=== PATIENT | male | born 1950 | race Caucasian/White ===

== ENCOUNTER 2017-09-12 08:33 | Inpatient (IN) | payer MEDICARE, BC ==
[2017-09-12] MEDS ORDERED: SODIUM CHLORIDE 0.9% 500 ML IV STA (08:38)
[2017-09-12] MEDS ORDERED: SODIUM CHLORIDE 0.9% 1,000 ML IV STA (08:38)
[2017-09-12] MEDS ORDERED: RX INFO: IV CONTRAST WAS GIVEN 1 EACH MISC MISCELLANE PRN (08:38)
--- NOTE | 2017-09-12 08:50 | ED ---
General Adult HPI - General Chief complaint: Shortness of Breath Stated complaint: Congestion Time Seen by Provider: 09/12/17 08:38 Source: patient, RN notes reviewed, old records reviewed Mode of arrival: wheelchair Limitations: no limitations - History of Present Illness Initial comments: This is a 67-year-old male the ER for evaluation of shortness of breath cough and congestion. Patient has remote history of smoking. Patient's been treated on an outpatient basis for bronchitis as of recently as well as flu. Patient's symptoms have progressed, he can't take a deep breath, severe left rib pain. Patient does again admit to increased cough, patient was sent in the ER by family doctor to rule out PE. Patient does admit to chest pain - Related Data Home Medications Medication Instructions Recorded Confirmed amLODIPine/VALSARTAN [Exforge 1 tab PO QAM 05/01/14 09/12/17 5-160 mg Tablet] Ibuprofen [Motrin] 800 mg PO Q6H PRN 09/12/17 09/12/17 Oseltamivir [Tamiflu] 75 mg PO Q12HR 09/12/17 09/12/17 predniSONE See Taper PO DAILY 09/12/17 09/12/17 Allergies Allergy/AdvReac Type Severity Reaction Status Date / Time codeine Allergy Nausea & Verified 09/12/17 08:37 Vomiting penicillin V Allergy Nausea & Verified 09/12/17 08:37 Vomiting Review of Systems ROS Statement: Those systems with pertinent positive or pertinent negative responses have been documented in the HPI. ROS Other: All systems not noted in ROS Statement are negative. Past Medical History Past Medical History: Eye Disorder, GERD/Reflux, Skin Disorder, Sleep Apnea/CPAP /BIPAP Additional Past Medical History / Comment(s): arthritis, DRYNESS AND CRACKING TO SKIN ON EMILY HANDS, EARLY GLAUCOMA History of Any Multi-Drug Resistant Organisms: None Reported Past Surgical History: Bladder Surgery, Joint Replacement, Orthopedic Surgery Additional Past Surgical History / Comment(s): elbow, hernia, spot removed from bladder, RT KNEE REPLACEMENT Past Anesthesia/Blood Transfusion Reactions: No Reported Reaction Past Psychological History: No Psychological Hx Reported Smoking Status: Former smoker Past Alcohol Use History: Rare Past Drug Use History: None Reported General Exam Limitations: no limitations General appearance: alert, in no apparent distress, anxious, obese Head exam: Present: atraumatic, normocephalic, normal inspection Eye exam: Present: normal appearance, PERRL, EOMI. Absent: scleral icterus, conjunctival injection, periorbital swelling ENT exam: Present: normal exam, mucous membranes moist Neck exam: Present: normal inspection. Absent: tenderness, meningismus, lymphadenopathy Respiratory exam: Present: normal lung sounds bilaterally, wheezes. Absent: respiratory distress, rales, rhonchi, stridor Cardiovascular Exam: Present: regular rate, normal rhythm, normal heart sounds. Absent: systolic murmur, diastolic murmur, rubs, gallop, clicks GI/Abdominal exam: Present: soft, normal bowel sounds. Absent: distended, tenderness, guarding, rebound, rigid Extremities exam: Present: normal inspection, full ROM, normal capillary refill. Absent: tenderness, pedal edema, joint swelling, calf tenderness Back exam: Present: normal inspection Neurological exam: Present: alert, oriented X3, CN II-XII intact Psychiatric exam: Present: normal affect, normal mood Skin exam: Present: warm, dry, intact, normal color. Absent: rash Course Vital Signs 09/12/17 09/12/17 09/12/17 08:33 09:12 10:50 Temperature 98.3 F Pulse Rate 85 70 78 Respiratory 24 16 Rate Blood Pressure 141/76 166/77 O2 Sat by Pulse 97 97 Oximetry 09/12/17 09/12/17 11:06 11:16 Temperature Pulse Rate 82 83 Respiratory 16 Rate Blood Pressure 151/72 O2 Sat by Pulse 98 Oximetry - Reevaluation(s) Reevaluation #1: 09/12/17 11:53 Patient does feel better with pain control, breathing treatments EKG Findings - EKG Comments: EKG Findings:: EKG shows normal sinus rhythm rate of 78, AR 162, QRS 80, QTC 424 Medical Decision Making - Medical Decision Making 67 male the ER for evaluation of shortness of breath with increased cough and congestion, patient does have left lower lobe pneumonia, patient will be admitted for breathing treatments and pain control, IV antibiotics - Lab Data Result diagrams: 09/12/17 09:10 09/12/17 09:10 Lab Results 09/12/17 09/12/17 09/12/17 Range/Units 09:10 09:10 09:10 WBC 6.9 (3.8-10.6) k/uL RBC 4.55 (4.30-5.90) m/uL Hgb 12.5 L (13.0-17.5) gm/dL Hct 38.5 L (39.0-53.0) % MCV 84.5 (80.0-100.0) fL MCH 27.6 (25.0-35.0) pg MCHC 32.6 (31.0-37.0) g/dL RDW 15.7 H (11.5-15.5) % Plt Count 207 (150-450) k/uL Neutrophils % 75 % Lymphocytes % 15 % Monocytes % 7 % Eosinophils % 1 % Basophils % 0 % Neutrophils # 5.2 (1.3-7.7) k/uL Lymphocytes # 1.1 (1.0-4.8) k/uL Monocytes # 0.5 (0-1.0) k/uL Eosinophils # 0.0 (0-0.7) k/uL Basophils # 0.0 (0-0.2) k/uL PT (9.0-12.0) sec INR (<1.2) APTT (22.0-30.0) sec D-Dimer (<0.60) mg/L FEU Sodium 142 (137-145) mmol/L Potassium 4.4 (3.5-5.1) mmol/L Chloride 101 (98-107) mmol/L Carbon Dioxide 30 (22-30) mmol/L Anion Gap 11 mmol/L BUN 16 (9-20) mg/dL Creatinine 0.90 (0.66-1.25) mg/dL Est GFR (MDRD) Af Amer >60 (>60 ml/min/1.73 sqM) Est GFR (MDRD) Non-Af >60 (>60 ml/min/1.73 sqM) Glucose 105 H (74-99) mg/dL Calcium 9.2 (8.4-10.2) mg/dL Magnesium 1.8 (1.6-2.3) mg/dL Total Bilirubin 0.4 (0.2-1.3) mg/dL AST 65 H (17-59) U/L ALT 70 (21-72) U/L Alkaline Phosphatase 90 (38-126) U/L Total Creatine Kinase 627 H (55-170) U/L CK-MB (CK-2) 3.1 H* (0.0-2.4) ng/mL CK-MB (CK-2) Rel Index 0.5 Troponin I <0.012 (0.000-0.034) ng/mL Total Protein 7.0 (6.3-8.2) g/dL Albumin 4.0 (3.5-5.0) g/dL 09/12/17 Range/Units 09:10 WBC (3.8-10.6) k/uL RBC (4.30-5.90) m/uL Hgb (13.0-17.5) gm/dL Hct (39.0-53.0) % MCV (80.0-100.0) fL MCH (25.0-35.0) pg MCHC (31.0-37.0) g/dL RDW (11.5-15.5) % Plt Count (150-450) k/uL Neutrophils % % Lymphocytes % % Monocytes % % Eosinophils % % Basophils % % Neutrophils # (1.3-7.7) k/uL Lymphocytes # (1.0-4.8) k/uL Monocytes # (0-1.0) k/uL Eosinophils # (0-0.7) k/uL Basophils # (0-0.2) k/uL PT 9.8 (9.0-12.0) sec INR 1.0 (<1.2) APTT 23.4 (22.0-30.0) sec D-Dimer 0.85 H (<0.60) mg/L FEU Sodium (137-145) mmol/L Potassium (3.5-5.1) mmol/L Chloride (98-107) mmol/L Carbon Dioxide (22-30) mmol/L Anion Gap mmol/L BUN (9-20) mg/dL Creatinine (0.66-1.25) mg/dL Est GFR (MDRD) Af Amer (>60 ml/min/1.73 sqM) Est GFR (MDRD) Non-Af (>60 ml/min/1.73 sqM) Glucose (74-99) mg/dL Calcium (8.4-10.2) mg/dL Magnesium (1.6-2.3) mg/dL Total Bilirubin (0.2-1.3) mg/dL AST (17-59) U/L ALT (21-72) U/L Alkaline Phosphatase (38-126) U/L Total Creatine Kinase (55-170) U/L CK-MB (CK-2) (0.0-2.4) ng/mL CK-MB (CK-2) Rel Index Troponin I (0.000-0.034) ng/mL Total Protein (6.3-8.2) g/dL Albumin (3.5-5.0) g/dL - Radiology Data Radiology results: report reviewed (CTA chest is positive for left lower lobe pneumonia), image reviewed Disposition Clinical Impression: Community acquired pneumonia, Acute exacerbation of chronic obstructive airways disease, Failure of outpatient treatment Disposition: ADMITTED IP TO THIS HOSP Condition: Fair
[2017-09-12] MEDS ORDERED: DIAZEPAM 5 MG/ML 2 ML INJ IVP STA (09:19)
[2017-09-12] MEDS ORDERED: MORPHINE SULFATE 4 MG/ML SYRINGE IVP STA (09:19)
[2017-09-12 09:25] LABS: Basophils % (A) 0 %; Eosinophils % (A) 1 %; HCT 38.5 % (39.0-53.0); HGB 12.5 gm/dL (13.0-17.5); Lymphocytes # (A) 1.1 k/uL (1.0-4.8); Lymphocytes % (A) 15 %; MCH 27.6 pg (25.0-35.0); MCHC 32.6 g/dL (31.0-37.0); MCV 84.5 fL (80.0-100.0); Mean Platelet Volume 6.4; Monocytes # (A) 0.5 k/uL (0-1.0); Monocytes % (A) 7 %; Neutrophils # (A) 5.2 k/uL (1.3-7.7); Neutrophils % (A) 75 %; Platelet Count 207 k/uL (150-450); RBC 4.55 m/uL (4.30-5.90); RDW 15.7 % (11.5-15.5); WBC 6.9 k/uL (3.8-10.6)
[2017-09-12 09:29] LABS: D-Dimer 0.85 mg/L FEU (<0.60)
[2017-09-12 09:33] LABS: Partial Thromboplastin Time 23.4 sec (22.0-30.0); Prothrombin Time 9.8 sec (9.0-12.0)
[2017-09-12 09:41] LABS: ALT 70 U/L (21-72); AST 65 U/L (17-59); Alkaline Phosphatase 90 U/L (38-126); Anion Gap 11 mmol/L; Blood Urea Nitrogen 16 mg/dL (9-20); Calcium 9.2 mg/dL (8.4-10.2); Carbon Dioxide 30 mmol/L (22-30); Chloride 101 mmol/L (98-107); Glucose 105 mg/dL (74-99); Magnesium 1.8 mg/dL (1.6-2.3); Potassium 4.4 mmol/L (3.5-5.1); Sodium 142 mmol/L (137-145); Total Bilirubin 0.4 mg/dL (0.2-1.3)
[2017-09-12 09:51] LABS: Creatine Kinase 627 U/L (55-170)
[2017-09-12 10:03] LABS: Troponin I <0.012 ng/mL (0.000-0.034)
[2017-09-12 10:06] LABS: Creatine Kinase MB 3.1 ng/mL (0.0-2.4)
--- NOTE | 2017-09-12 10:29 | CT ---
EXAMINATION TYPE: CT angio chest DATE OF EXAM: 09/12/2017 COMPARISON: NONE HISTORY: SOB, cough CT DLP: 581 mGycm CONTRAST: CT chest with contrast and 3D reconstruction with MIP imaging is performed with IV Contrast, patient injected with 100 mL of Omnipaque 350. Contrast-enhanced CT of the chest was performed through the course of the pulmonary arteries with shara g and mediastinal window settings submitted. 3D reconstruction with MIP imaging was also performed. PULMONARY ARTERIES: Examination is limited by contrast opacification of the pulmonary arteries. No o bvious or sizable filling defect is seen within the main or segmental branches of the pulmonary arter ies. LUNGS: Left-sided pleural effusion with AP dimension of 2.5 cm and associated infiltrate or atelectas is left lower lobe. The remainder of the lungs are clear. MEDIASTINUM: Thoracic aorta is of normal caliber,however, evaluation is limited given timing of the contrast bolus. If there is concern for thoracic aortic pathology consider AVRIL. Correlate clinicall y . The heart is mildly enlarged. No evidence for mediastinal mass. No mediastinal lymph nodes grea ter than 1cm. HILAR STRUCTURES: No evidence for mass. No hilar lymph nodes greater than 1 cm. UPPER ABDOMEN: No significant abnormality is seen. Small sliding-type hiatal hernia. IMPRESSION: 1. Examination is limited by contrast opacification of the pulmonary arteries. No obvious or sizable filling defect is seen within the main or segmental branches of the pulmonary arteries. 2. Left lower lobe pleural effusion with atelectasis and/or infiltrate.
[2017-09-12] MEDS ORDERED: IPRATROPIUM-ALBUTEROL 3 ML NEB INHALATION STA (10:38)
[2017-09-12] MEDS ORDERED: PNEUMONIA PROTOCOL UTILIZED 1 EACH MISC PO PRN (10:44)
[2017-09-12] MEDS ORDERED: LEVOFLOXACIN 750MG-D5W PMX 750 MG in DEXTROSE/WATER 1 150ML.BAG IVPB STA (10:44)
[2017-09-12] MEDS ORDERED: HYDROmorphone 0.5 MG/0.5 ML SYRINGE IVP PRN (10:49)
[2017-09-12] MEDS ORDERED: HYDROmorphone 2 MG/ML 1 ML SYRINGE IVP STA (10:49)
[2017-09-12] MEDS ORDERED: methylPREDNISolone SOD SUCCI 125 MG/2 ML VIAL IV STA (10:49)
[2017-09-12] MEDS: SODIUM CHLORIDE 0.9% 1,000 ML IV SCH ×2 (11:11→21:31)
--- NOTE | 2017-09-12 11:57 | P.HPIM ---
History of Present Illness H&P Date: 09/12/17 Chief Complaint: Shortness of breath and cough The patient is a 67-year-old morbidly obese male with a past focal history of essential hypertension and psoriasis presents to the ER after being urged to come here by his primary care physician Dr. Murphy. Apparently the patient has had a week of intermittently productive cough and is been increasingly short of breath, with noted dyspnea on exertion. The patient has reported intermittent fevers chills and night sweats, with increasing fatigue. She was seen in his PCPs office approximately a week ago and given oral steroids and recently followed up with him yesterday and was prescribed Tamiflu and is taken only a single dose and then followed up today with no improvement of his symptoms with worsening left-sided pleuritic chest discomfort, the patient denies any nausea vomiting or abdominal pain. In the ER the patient had a CT angios chest that showed left lower lobe effusion with atelectasis/infiltrateand was negative for PE Past Medical History Past Medical History: Eye Disorder, GERD/Reflux, Skin Disorder, Sleep Apnea/CPAP /BIPAP Additional Past Medical History / Comment(s): arthritis, DRYNESS AND CRACKING TO SKIN ON EMILY HANDS, EARLY GLAUCOMA History of Any Multi-Drug Resistant Organisms: None Reported Past Surgical History: Bladder Surgery, Joint Replacement, Orthopedic Surgery Additional Past Surgical History / Comment(s): elbow, hernia, spot removed from bladder, RT KNEE REPLACEMENT Past Anesthesia/Blood Transfusion Reactions: No Reported Reaction Past Psychological History: No Psychological Hx Reported Smoking Status: Former smoker Past Alcohol Use History: Rare Past Drug Use History: None Reported - Past Family History Mother Family Medical History: Cancer Additional Family Medical History / Comment(s): Mother is from lung cancer. She was a smoker. Father Family Medical History: Cancer Additional Family Medical History / Comment(s): Father is from lung cancer. He was a smoker. Medications and Allergies Home Medications Medication Instructions Recorded Confirmed Type amLODIPine/VALSARTAN [Exforge 1 tab PO QAM 05/01/14 09/12/17 History 5-160 mg Tablet] Ibuprofen [Motrin] 800 mg PO Q6H PRN 09/12/17 09/12/17 History Oseltamivir [Tamiflu] 75 mg PO Q12HR 09/12/17 09/12/17 History predniSONE See Taper PO DAILY 09/12/17 09/12/17 History Allergies Allergy/AdvReac Type Severity Reaction Status Date / Time codeine Allergy Nausea & Verified 09/12/17 08:37 Vomiting penicillin V Allergy Nausea & Verified 09/12/17 08:37 Vomiting Physical Exam Vitals: Vital Signs Temp Pulse Resp BP Pulse Ox 09/12/17 11:16 83 16 151/72 98 09/12/17 11:06 82 09/12/17 10:50 78 09/12/17 09:12 70 16 166/77 97 09/12/17 08:33 98.3 F 85 24 141/76 97 Intake and Output 09/11/17 09/12/17 09/12/17 22:59 06:59 14:59 Other: Weight 154.221 kg Patient Weight 09/13/17 06:59 Weight 154.221 kg Constitutional: No acute distress, conversant, pleasant Eyes: Anicteric sclerae, moist conjunctiva, no lid-lag, PERRLA ENMT: NC/AT,Oropharynx clear, no erythema, exudates Neck:Supple, FROM, no masses, or JVD, No carotid bruits; No thyromegaly Lungs: Inspiratory to expiratory wheezes, Normal respiratory effort, no accessory muscle use Cardiovascular: Heart regular in rate and rhythm, No murmurs, gallops, or rubs no peripheral edema Abdominal: Soft Nontender, nom distended, no guarding, no rebound or rigidity, Normoactive bowel sounds No hepatomegaly, No splenomegaly, No palpable mass No abdominal wall hernia noted Skin: Normal temperature, tone, texture, turgor, No induration No subcutaneous nodules, No rash, lesions, No ulcers Extremities:No digital cyanosis No clubbing, Pedal pulses intact and symmetrical Radial pulses intact and symmetrical Normal gait and station, No calf tenderness, +2 b/l pitting edema Psychiatric: Alert and oriented to person, place and time, Appropriate affect Intact judgement Neuro: Muscles Strength 5/5 in all 4 extremities, Sensation to light touch grossly present throughout, Cranial nerves II-XII grossly intact. No focal sensory deficits Results CBC & Chem 7: 09/12/17 09:10 09/12/17 09:10 Labs: Abnormal Lab Results - Last 24 Hours (Table) 09/12/17 09/12/17 09/12/17 Range/Units 09:10 09:10 09:10 Hgb 12.5 L (13.0-17.5) gm/dL Hct 38.5 L (39.0-53.0) % RDW 15.7 H (11.5-15.5) % D-Dimer (<0.60) mg/L FEU Glucose 105 H (74-99) mg/dL AST 65 H (17-59) U/L Total Creatine Kinase 627 H (55-170) U/L CK-MB (CK-2) 3.1 H* (0.0-2.4) ng/mL 09/12/17 Range/Units 09:10 Hgb (13.0-17.5) gm/dL Hct (39.0-53.0) % RDW (11.5-15.5) % D-Dimer 0.85 H (<0.60) mg/L FEU Glucose (74-99) mg/dL AST (17-59) U/L Total Creatine Kinase (55-170) U/L CK-MB (CK-2) (0.0-2.4) ng/mL Assessment and Plan (1) Community acquired pneumonia Current Visit: Yes Status: Acute Code(s): J18.9 - PNEUMONIA, UNSPECIFIED ORGANISM SNOMED Code(s): 020970106 (2) Wheezing Current Visit: Yes Status: Acute Code(s): R06.2 - WHEEZING SNOMED Code(s) : 14702036 (3) Essential hypertension Current Visit: Yes Status: Acute Code(s): I10 - ESSENTIAL (PRIMARY) HYPERTENSION SNOMED Code(s): 12056858 (4) REKHA (obstructive sleep apnea) Current Visit: Yes Status: Acute Code(s): G47.33 - OBSTRUCTIVE SLEEP APNEA ( ADULT) (PEDIATRIC) SNOMED Code(s): 55143852 (5) Elevated CK Current Visit: Yes Status: Acute Code(s): R74.8 - ABNORMAL LEVELS OF OTHER SERUM ENZYMES SNOMED Code(s): 934351557 Plan: Patient is admitted for suspected community-acquired pneumonia anticipated greater than 2 midnight stay. We'll check influenza and initiated coverage with Levaquin and supportive treatment with scheduled and when necessary bronchodilator breathing treatments along with steroids as a patient does have some wheezing. We'll check a BNP and if elevated an echocardiogram. Resume his home antihypertensive regimen, continue supportive treatment with oxygen when necessary. Initiate Protonix and Lovenox for GI and DVT prophylaxis respectively
[2017-09-12] MEDS ORDERED: oxyCODONE-APAP 5-325MG 1 EACH TAB PO PRN (12:01)
[2017-09-12] MEDS: PANTOPRAZOLE 40 MG TABLET PO SCH (14:40)
[2017-09-12] MEDS: guaiFENesin 600 MG TABLET.ER PO SCH ×2 (14:41→22:32)
[2017-09-12] MEDS ORDERED: hydrALAZINE HCL 20 MG/ML 1 ML VIAL IVP STA (15:05)
[2017-09-12] MEDS ORDERED: ONDANSETRON 4 MG/2 ML VIAL IVP STA (15:06)
[2017-09-12] MEDS: IPRATROPIUM-ALBUTEROL 3 ML NEB INHALATION SCH ×3 (16:03→19:50)
[2017-09-12] MEDS: methylPREDNISolone SOD SUCCI 125 MG/2 ML VIAL IV SCH (18:11)
[2017-09-12] MEDS ORDERED: ONDANSETRON 4 MG/2 ML VIAL IVP PRN (23:09)
[2017-09-13] MEDS: IBUPROFEN 800 MG TAB PO PRN ×2 (00:02→21:08)
[2017-09-13] MEDS: methylPREDNISolone SOD SUCCI 125 MG/2 ML VIAL IV SCH ×2 (00:02→06:48)
[2017-09-13] MEDS: SODIUM CHLORIDE 0.9% 1,000 ML IV SCH ×2 (06:48→15:52)
[2017-09-13] MEDS ORDERED: AMLODIPINE PO SCH (09:00)
[2017-09-13] MEDS ORDERED: VALSARTAN PO SCH (09:00)
[2017-09-13 09:09] LABS: Basophils % (A) 0 %; Eosinophils % (A) 0 %; HCT 37.5 % (39.0-53.0); HGB 11.7 gm/dL (13.0-17.5); Hypochromasia Slight; Lymphocytes # (A) 0.7 k/uL (1.0-4.8); Lymphocytes % (A) 13 %; MCH 26.9 pg (25.0-35.0); MCHC 31.3 g/dL (31.0-37.0); MCV 86.1 fL (80.0-100.0); Mean Platelet Volume 6.7; Monocytes # (A) 0.2 k/uL (0-1.0); Monocytes % (A) 4 %; Neutrophils # (A) 4.4 k/uL (1.3-7.7); Neutrophils % (A) 82 %; Platelet Count 224 k/uL (150-450); RBC 4.35 m/uL (4.30-5.90); RDW 15.5 % (11.5-15.5); WBC 5.4 k/uL (3.8-10.6)
[2017-09-13 09:25] LABS: ALT 70 U/L (21-72); AST 67 U/L (17-59); Albumin 3.7 g/dL (3.5-5.0); Alkaline Phosphatase 95 U/L (38-126); Anion Gap 13 mmol/L; Blood Urea Nitrogen 17 mg/dL (9-20); Calcium 9.2 mg/dL (8.4-10.2); Carbon Dioxide 27 mmol/L (22-30); Chloride 100 mmol/L (98-107); Glucose 162 mg/dL (74-99); Potassium 4.5 mmol/L (3.5-5.1); Sodium 140 mmol/L (137-145); Total Bilirubin 0.4 mg/dL (0.2-1.3); Total Protein 6.4 g/dL (6.3-8.2)
[2017-09-13] MEDS: amLODIPine 5 MG TAB PO SCH (09:47)
[2017-09-13] MEDS: PANTOPRAZOLE 40 MG TABLET PO SCH (09:47)
[2017-09-13] MEDS: guaiFENesin 600 MG TABLET.ER PO SCH ×2 (09:47→21:01)
[2017-09-13] MEDS: ENOXAPARIN 40 MG/0.4 ML SYRINGE SQ SCH (09:47)
[2017-09-13] MEDS: VALSARTAN 160 MG TAB PO SCH (09:48)
--- NOTE | 2017-09-13 09:49 | XR ---
EXAMINATION TYPE: XR chest 2V DATE OF EXAM: 09/13/2017 COMPARISON: CT chest 09/12/2017 HISTORY: Pneumonia TECHNIQUE: Frontal and lateral views of the chest are obtained. FINDINGS: There is blunting the posterior and left costophrenic angle. No evident pneumothorax. Victorina ent is rotated. Heart is enlarged. Pulmonary artery appears prominently. IMPRESSION: Left lower lobe atelectasis versus pneumonia and associated effusion. Cardiomegaly. Kenroy elate for possible pulmonary artery hypertension.
[2017-09-13] MEDS ORDERED: LEVOFLOXACIN 750MG-D5W PMX 750 MG in DEXTROSE/WATER 1 150ML.BAG IVPB SCH (11:00)
--- NOTE | 2017-09-13 11:48 | P.PN ---
Subjective Progress Note Date: 09/13/17 Principal diagnosis: shortness of breath Patient is a 67 yo M with a history of REKHA, GERD, and HTN who presented to the emergency department at the direction of his primary care physician Dr. Murphy. He had been having shortness of breath for approximately one week and had been started on an antibiotic he was also given Tamiflu at his physician's office and took one dose. On presentation to the ER he complained of pleuritic chest pain. He underwent an extensive evaluation. His initial vital signs were within normal limits. Initial laboratory analysis showed slightly elevated CK of 627 elevated d-dimer. He underwent CTA of the chest which did not show any pulmonary emboli but did show a left-sided pleural effusion with adjacent atelectasis/infiltrate. He was started on IV fluids and given a dose of Levaquin. Arrangements were made for admission for failed outpatient treatment of community-acquired pneumonia. He also underwent influenza swab which came back positive for influenza type B. However he was not started on Tamiflu as if his symptoms began in 9 days ago. Patient seen and examined at bedside. He states that his shortness of breath is improving. His chest pain and cough are improved but still present when he takes a deep breath. He is no longer having any nausea. He is still feeling somewhat weak. He has no other complaints. He is feeling much better than at admission. We discussed his possible pneumonia with parapneumonic effusion and his influenza B+. I gave him instructions that should his acquaintances or family starts showing signs of influenza they should contact their healthcare provider immediately and let them know they have been in contact with a person positive for influenza B. Objective - Vital Signs Vital signs: Vital Signs Temp 96.9 F L 09/13/17 07:00 Pulse 83 09/13/17 07:00 Resp 18 09/13/17 07:00 BP 143/72 09/13/17 07:00 Pulse Ox 94 L 09/13/17 07:00 Intake & Output 09/12/17 09/13/17 09/13/17 18:59 06:59 18:59 Weight 154.221 kg Other: # Voids 3 - Exam General: ill appearing, no distress, appears at stated age Derm: warm, dry Head: atraumatic, normocephalic, symmetric Eyes: EOMI, no lid lag, anicteric sclera Mouth: no lip lesion, mucus membranes moist Cardiovascular: S1S2 reg, no murmur, positive posterior tibial pulse bilateral, Lungs: minimal rhonci left base , no accessory muscle use Abdominal: soft, nontender to palpation, no guarding, no appreciable organomegaly Ext: no gross muscle atrophy, no edema, no contractures Neuro: CN II-XI grossly intact, no focal neuro deficits Psych: Alert, oriented, appropriate affect - Labs CBC & Chem 7: 09/13/17 08:15 09/13/17 08:15 Labs: Abnormal Lab Results - Last 24 Hours (Table) 09/12/17 09/13/17 09/13/17 Range/Units 11:54 08:15 08:15 Hgb 11.7 L (13.0-17.5) gm/dL Hct 37.5 L (39.0-53.0) % Lymphocytes # 0.7 L (1.0-4.8) k/uL Glucose 162 H (74-99) mg/dL AST 67 H (17-59) U/L Influenza Type B (PCR) Detected H (Not Detectd) Assessment and Plan Assessment: Community Acquired Pneumonia, failed outpatient treatment with small left-sided pleural effusion - When necessary DuoNeb's - Solu-Medrol transitioned to prednisone - Levaquin X 5 days - follow CXR till clear, repeat in AM Influenza B -No indication for Tamiflu his symptoms have been present for 9 days GERD - PPI Morbid obesity BMI 56.6 - Structured outpatient weight loss DVT prophylaxis: Lovenox Discussed with: Patient Anticipated discharge: 24-[address]: home A total of 35 minutes was spent on the care of this complex patient more than 50 % of the time was spent in counseling and care coordination.
[2017-09-13] MEDS: IPRATROPIUM-ALBUTEROL 3 ML NEB INHALATION PRN ×2 (16:42→20:52)
[2017-09-14] MEDS: SODIUM CHLORIDE 0.9% 1,000 ML IV SCH (03:01)
[2017-09-14] MEDS: IPRATROPIUM-ALBUTEROL 3 ML NEB INHALATION PRN (07:09)
[2017-09-14 07:43] VITALS: BP 119/82; PULSE 79; RESP 18; TEMP 97.3
[2017-09-14] MEDS: PANTOPRAZOLE 40 MG TABLET PO SCH (08:02)
[2017-09-14] MEDS: guaiFENesin 600 MG TABLET.ER PO SCH (08:02)
[2017-09-14] MEDS: amLODIPine 5 MG TAB PO SCH (08:02)
[2017-09-14] MEDS: VALSARTAN 160 MG TAB PO SCH (08:02)
[2017-09-14] MEDS: ENOXAPARIN 40 MG/0.4 ML SYRINGE SQ SCH (08:39)
[2017-09-14] MEDS ORDERED: predniSONE 20 MG TAB PO SCH (09:00)
[2017-09-14] MEDS ORDERED: LEVOFLOXACIN 750 MG TAB PO SCH (09:00)
--- NOTE | 2017-09-14 09:55 | XR ---
EXAMINATION TYPE: XR chest 2V DATE OF EXAM: 09/14/2017 COMPARISON: 09/13/2017 TECHNIQUE: PA and lateral views submitted. HISTORY: Pneumonia FINDINGS: Subsegmental changes at the left lung base. The right lung clear. No pleural effusion or pneumothorax . No overt failure. Atherosclerotic change aorta. IMPRESSION: 1. Left basilar atelectasis or infiltrate.
--- NOTE | 2017-09-14 11:16 | P.DS ---
Providers Date of admission: 09/12/17 10:45 Expected date of discharge: 09/14/17 Attending physician: Niko Daugherty MD Consults: None Primary care physician: Marlon Murphy - Discharge Diagnosis(es) (1) Community acquired pneumonia Current Visit: Yes Status: Acute (2) Influenza B Current Visit: Yes Status: Acute (3) Morbid obesity Current Visit: Yes Status: Acute (4) GERD (gastroesophageal reflux disease) Current Visit: Yes Status: Acute (5) REKHA (obstructive sleep apnea) Current Visit: Yes Status: Acute Hospital Course: Patient is a 67 yo M with a history of REKHA, GERD, and HTN who presented to the emergency department at the direction of his primary care physician Dr. Murphy. He had been having shortness of breath for approximately one week and had been started on an antibiotics and he was also given Tamiflu at his physician's office and took one dose. On presentation to the ER he complained of pleuritic chest pain. He underwent an extensive evaluation. His initial vital signs were within normal limits. Initial laboratory analysis showed slightly elevated CK of 627 elevated d-dimer. He underwent CTA of the chest which did not show any pulmonary emboli but did show a left-sided pleural effusion with adjacent atelectasis/infiltrate. He was started on IV fluids and given a dose of Levaquin. Arrangements were made for admission for failed outpatient treatment of community-acquired pneumonia. He also underwent influenza swab which came back positive for influenza type B. However he was not started on Tamiflu as his symptoms began in 9 days ago. His chest x-ray was repeated to ensure that the small amount of effusion had resolved. He was maintained on Levaquin after admission. He was also given IV fluid hydration. His breathing and generalized muscle aches continued to improve throughout admission. He was tolerating oral medications. His only requiring minimal medications for his pleurisy. Is determined stable for discharge home. He will complete a five- day course of Levaquin, prednisone taper, Mucinex, and patient has requested a prescription for Claritin-D for his sinuses. He states the only thing that has helped in the past. I did suggest using Claritin along with Flonase, however he is unable to tolerate Flonase. His blood pressure on day of discharge was 119/82 it appears that Claritin-D will be safe for minimal amount of time. I did discuss with him that this can raise his blood pressure and have worsening consequences should use it long-term. He is aware he will also need to have a chest x-ray to ensure resolution of his pneumonia that this can be followed by Dr. Murphy. He will follow up with Dr. Murphy in the next 2-3 days. Patient seen and examined at bedside. Breathing improved. Feeling tired and frustrated because he cannot sleep at the hospital. Muscle aches improving. Overall feeling better. Vital signs reviewed and stable. General: non toxic, no distress, appears at stated age Derm: warm, dry Head: atraumatic, normocephalic, symmetric Eyes: EOMI, no lid lag, anicteric sclera Mouth: no lip lesion, mucus membranes moist Cardiovascular: S1S2 reg, no murmur, positive posterior tibial pulse bilateral, Lungs: Rhonchi left base , no accessory muscle use Abdominal: soft, nontender to palpation, no guarding, no appreciable organomegaly Ext: no gross muscle atrophy, trace edema, no contractures Neuro: CN II-XI grossly intact, no focal neuro deficits Psych: Alert, oriented, appropriate affect A total of 40 minutes of time were spent preparing this complex discharge summary . Pertinent Studies: CTA chest: No obvious defect in the pulmonary arteries, left lower lobe pleural effusion with adjacent atelectasis or infiltrate Patient Condition at Discharge: Fair Plan - Discharge Summary Discharge Rx Participant: Yes New Discharge Prescriptions: New guaiFENesin [Mucinex] 1,200 mg PO Q12HR 7 Days tablet.er Levofloxacin [Levaquin] 750 mg PO DAILY #5 tab Loratadine-Pseudoeph 10-240 mg [Claritin-D 24 Hr] 1 each PO DAILY #20 tab Continue amLODIPine/VALSARTAN [Exforge 5-160 mg Tablet] 1 tab PO QAM predniSONE See Taper PO DAILY Ibuprofen [Motrin] 800 mg PO Q6H PRN PRN Reason: Pain Discontinued Oseltamivir [Tamiflu] 75 mg PO Q12HR Discharge Medication List amLODIPine/VALSARTAN [Exforge 5-160 mg Tablet] 1 tab PO QAM 05/01/14 [History] Ibuprofen [Motrin] 800 mg PO Q6H PRN 09/12/17 [History] predniSONE See Taper PO DAILY 09/12/17 [History] Levofloxacin [Levaquin] 750 mg PO DAILY #5 tab 09/14/17 [Rx] Loratadine-Pseudoeph 10-240 mg [Claritin-D 24 Hr] 1 each PO DAILY #20 tab [Rx] guaiFENesin [Mucinex] 1,200 mg PO Q12HR 7 Days tablet.er 09/14/17 [Rx] Follow up Appointment(s)/Referral(s): Marlon Murphy MD [Primary Care Provider] - 09/18/17 (Office closed, please call for appointment. ) Ambulatory/Diagnostic Orders: XR chest 2V [RAD.AMB] Location: Determined By Patient Patient Instructions/Handouts: Influenza (DC), Pneumonia (GEN) Activity/Diet/Wound Care/Special Instructions: Heart healthy diet Activity as tolerated. Discharge Disposition: HOME SELF-CARE
== END 2017-09-14 12:06 | disposition home or self-care (01) | DRG 194 ==
LOC: EC 08:33 → 4MS4W 10:45
PROVIDERS: ADMIT Family Medicine; ATTEND Family Medicine
DX: J10.00 Influenza due to other identified influenza virus with unspecified type of pneumonia (principal); J90 Pleural effusion, not elsewhere classified; E66.01 Morbid (severe) obesity due to excess calories; J44.0 Chronic obstructive pulmonary disease with (acute) lower respiratory infection; J44.1 Chronic obstructive pulmonary disease with (acute) exacerbation; Z68.43 Body mass index [BMI] 50.0-59.9, adult; J98.11 Atelectasis; G47.33 Obstructive sleep apnea (adult) (pediatric); J18.9 Pneumonia, unspecified organism; I10 Essential (primary) hypertension; L40.9 Psoriasis, unspecified; K21.9 Gastro-esophageal reflux disease without esophagitis; H40.9 Unspecified glaucoma; M19.91 Primary osteoarthritis, unspecified site; Z71.3 Dietary counseling and surveillance; Z79.899 Other long term (current) drug therapy; Z96.651 Presence of right artificial knee joint; Z87.891 Personal history of nicotine dependence; Z88.5 Allergy status to narcotic agent; Z88.0 Allergy status to penicillin
CPT/HCPCS: 36415; 71046; 71275; 80053; 82550; 82553; 83735; 83880; 84484; 85025; 85379; 85610; 85730; 87040; 87070; 87205; 87502; 93005; 94640; 94760; 96361; 96365; 96366; 96375; 99285

== ENCOUNTER → 2018-03-16 | Outpatient (CLI) | payer MEDICARE, BC ==
--- NOTE | 2018-03-16 13:27 | US ---
EXAMINATION TYPE: US carotid duplex BILAT DATE OF EXAM: 03/16/2018 COMPARISON: NONE CLINICAL HISTORY: R55 Syncope. Patient denies syncope, instead c/o left arm numbness with known pinch ed nerve per patient EXAM MEASUREMENTS: Exam is technically limited by short, thick neck and emphasized respirations RIGHT: Peak Systolic Velocity (PSV) cm/sec ----- Right CCA: 84.1 ----- Right ICA: 66.4 ----- Right ECA: 86.7 ICA/CCA ratio: 0.8 RIGHT: End Diastole cm/sec ----- Right CCA: 23.5 ----- Right ICA: 18.4 ----- Right ECA: 13.4 LEFT: Peak Systolic Velocity (PSV) cm/sec ----- Left CCA: 65.6 ----- Left ICA: 107.0 ----- Left ECA: 113.2 ICA/CCA ratio: 1.6 LEFT: End Diastole cm/sec ----- Left CCA: 12.8 ----- Left ICA: 26.7 ----- Left ECA: 8.3 VERTEBRALS (direction of flow): Right Vertebral: Antegrade Left Vertebral: Antegrade Rhythm: Normal Mild to moderate intimal wall changes noted at bilateral carotid bifurcation, but PSV is wnl bilatera lly. IMPRESSION: Mild to moderate degree of grayscale atheromatous plaquing with no sonographically evide nt hemodynamically significant stenosis within either visualized carotid arterial system.
== END | disposition home or self-care (01) ==
LOC: RADUSWWP 10:37
PROVIDERS: ATTEND Internal Medicine
DX: I65.29 Occlusion and stenosis of unspecified carotid artery (principal); R55 Syncope and collapse
CPT/HCPCS: 93880

== ENCOUNTER → 2019-06-12 | Outpatient (CLI) | payer MEDICARE ==
[2019-06-12 09:37] LABS: Amorphous Sediment,Urine Occasional /hpf; Appearance,Urine Cloudy (Clear); Bilirubin,Urine Negative (Negative); Blood,Urine Negative (Negative); Color,Urine Yellow; Glucose,Urine (UA) Negative (Negative); Ketones,Urine Negative (Negative); Leukocyte Esterase,Urine Negative (Negative); Mucus,Urine Many /hpf; Nitrite,Urine Negative (Negative); PH, Urine 5.5 (5.0-8.0); Protein,Urine 1+ (Negative); RBC,Urine 1 /hpf (0-5); Specific Gravity,Urine 1.027 (1.001-1.035); Squamous Epithelial Cell,Urine 1 /hpf (0-4); Urobilinogen,Urine <2.0 mg/dL (<2.0); WBC,Urine 4 /hpf (0-5)
== END ==
LOC: LABPAT 07:29
PROVIDERS: ATTEND Orthopaedic Surgery
DX: Z01.812 Encounter for preprocedural laboratory examination (principal); Z01.818 Encounter for other preprocedural examination
CPT/HCPCS: 36415; 81001; 87070; 93005

== ENCOUNTER → 2019-06-13 | Outpatient (CLI) | payer MEDICARE ==
[2019-06-13 13:58] LABS: HCT 35.9 % (39.0-53.0); HGB 11.5 gm/dL (13.0-17.5); Hypochromasia Slight; MCH 28.2 pg (25.0-35.0); MCHC 32.1 g/dL (31.0-37.0); Platelet Count 250 k/uL (150-450); RBC 4.08 m/uL (4.30-5.90); WBC 7.4 k/uL (3.8-10.6)
[2019-06-13 14:05] LABS: ALT 28 U/L (21-72); AST 22 U/L (17-59); African American GFR (CKD) >90 (>60 ml/min/1.73 sqM); Albumin 4.1 g/dL (3.5-5.0); Alkaline Phosphatase 91 U/L (38-126); Anion Gap 9 mmol/L; Blood Urea Nitrogen 15 mg/dL (9-20); Calcium 9.5 mg/dL (8.4-10.2); Carbon Dioxide 28 mmol/L (22-30); Chloride 104 mmol/L (98-107); Glucose 109 mg/dL (74-99); Potassium 4.4 mmol/L (3.5-5.1); Sodium 141 mmol/L (137-145); Total Bilirubin 0.4 mg/dL (0.2-1.3); Total Protein 7.1 g/dL (6.3-8.2)
[2019-06-13 14:11] LABS: INR 0.9 (<1.2); Partial Thromboplastin Time 25.9 sec (22.0-30.0)
== END | disposition home or self-care (01) ==
LOC: LABPAT 12:24
PROVIDERS: ATTEND Orthopaedic Surgery
DX: Z01.812 Encounter for preprocedural laboratory examination (principal); Z01.818 Encounter for other preprocedural examination; Z79.01 Long term (current) use of anticoagulants
CPT/HCPCS: 36415; 80053; 85027; 85610; 85730

== ENCOUNTER 2019-06-25 09:35 | Inpatient (IN) | payer BC, MEDICARE ==
[2019-06-20 13:03] VITALS: BMI 57.2
[~2019-06-25 09:35] MED LIST: ACETAMINOPHEN TAB 500 MG TAB PO ONE; DEXAMETHASONE SOD PHOSPHATE 10 MG/ML 1 ML VIAL IV ONE; GABAPENTIN 300 MG CAP PO ONE; HYDROmorphone 0.5 MG/0.5 ML SYRINGE IVP PRN; LIDOCAINE 1% 20 ML VIAL (10MG/ML) FOR IV START INTRADERMA PRN; MELOXICAM 7.5 MG TAB PO ONE; MIDAZOLAM 2 MG/2 ML VIAL IV PRN; ROPIVACAINE 246.25 MG, EPINEPHrine 0.5 MG, KETOROLAC 30 MG, cloNIDine HCL/PF 80 MCG, WA... MISCELLANE ONE; TRANEXAMIC ACID 1,000 MG in SODIUM CHLORIDE 0.9% 100 ML IVPB ONE; ceFAZolin 3 GM in SODIUM CHLORIDE 0.9% 100 ML IVPB ONE; fentaNYL (PF) 50 MCG/ML 2 ML AMP IVP PRN
[2019-06-25] MEDS: LACTATED RINGERS 1,000 ML IV SCH (10:13)
[2019-06-25] MEDS ORDERED: ONDANSETRON 4 MG/2 ML VIAL IVP ONE (10:14)
[2019-06-25] MEDS ORDERED: HYDROcodone/APAP 5-325MG 1 EACH TAB PO PRN (10:37)
[2019-06-25] MEDS ORDERED: HYDROmorphone 0.5 MG/0.5 ML SYRINGE IVP PRN ×2 (10:37)
[2019-06-25] MEDS ORDERED: BISACODYL 10 MG SUPP RECTAL PRN (10:37)
[2019-06-25] MEDS ORDERED: MAGNESIUM HYDROXIDE 2,400 MG/10 ML CUP PO PRN (10:37)
[2019-06-25] MEDS ORDERED: hydrOXYzine PAMOATE 25 MG CAP PO PRN (10:37)
[2019-06-25] MEDS ORDERED: NALOXONE 0.4 MG/ML 1 ML VIAL IV PRN (10:37)
[2019-06-25] MEDS ORDERED: DIAZEPAM 5 MG TAB PO PRN (10:37)
[2019-06-25] MEDS ORDERED: NA PHOS,M-B/NA PHOS,DI-BA 133 ML ENEMA RECTAL PRN (10:37)
[2019-06-25] MEDS ORDERED: SODIUM CHLORIDE 0.9% 100 ML BAG ONE (12:06)
[2019-06-25] MEDS ORDERED: PHENYLEPHRINE-0.9% NACL SYG 1 MG/10 ML SYRINGE ONE (12:06)
[2019-06-25] MEDS ORDERED: diphenhydrAMINE 50 MG/ML 1 ML VIAL ONE (12:06)
[2019-06-25] MEDS ORDERED: TRANEXAMIC ACID 1,000 MG/10 ML VIAL ONE (12:06)
[2019-06-25] MEDS ORDERED: ePHEDrine SULFATE/0.9% NACL/PF 50 MG/5 ML SYRINGE IV ONE (12:06)
[2019-06-25] MEDS ORDERED: MIDAZOLAM 2 MG/2 ML VIAL ONE (12:06)
[2019-06-25] MEDS ORDERED: PROPOFOL 10 MG/ML 20 ML VIAL IV ONE (12:06)
[2019-06-25] MEDS ORDERED: CLINDAMYCIN 1,800 MG in SODIUM CHLORIDE 0.9% IRRIGATIO 3,000 ML IRRIGATION ONE (12:09)
--- NOTE | 2019-06-25 13:32 | P.OP ---
Date of Procedure: 06/25/19 Preoperative Diagnosis: Severe osteoarthritis left knee Postoperative Diagnosis: Severe osteoarthritis left knee Procedure(s) Performed: Left total knee arthroplasty Implants: [employer] Journey II CR Oxinium cruciate retaining femoral component size 6, left [employer] Journey left nonporous tibial baseplate size 4 [employer] Journey II, XLPE CR articular insert, size 9 mm, Size 3-4 left [employer] Journey BCS resurfacing oval patellar component, 32 mm All components were cemented using Palacos R bone cement.. The articulation is Oxinium on polyethylene. Anesthesia: spinal Surgeon: Olu Zuniga Business Support Administrator #1: Amina Okeefe Estimated Blood Loss (ml): 75 Pathology: other (Bone and cartilage) Condition: stable Disposition: PACU Indications for Procedure: After failure of conservative treatment we discussed the surgical and nonsurgical treatment options at length. Patient wishes to proceed with a total knee arthroplasty. Complications specific to this procedure were discussed at length, including but not limited to infection, bleeding, stiffness, and nerve injury. Patient is aware of all these complications and informed consent was obtained Operative Findings: The operative findings are consistent with severe osteoarthritis of the left knee Description of Procedure: Patient was seen in the preoperative area consent was reviewed and operative site was marked with a skin marker. An adductor canal pain catheter was placed by anesthesia in the preoperative area. Patient was then brought to the operating room and given preoperative antibiotics intravenously. A spinal anesthetic was administered by the anesthesia department. A tourniquet was placed on the upper thigh and the lower extremity was prepped and draped in usual sterile fashion. A gram of transexamic acid was given. A universal timeout was then performed which confirmed the patient's name, surgical site, ALLERGIES, and consent. The lower extremity was then exsanguinated and tourniquet was inflated to 250 mmHg. A standard and anterior midline approach to the knee was performed. The skin and subcutaneous tissue was dissected down to the patellar tendon. A medial parapatellar arthrotomy was then performed. The knee was then extended, the patellar was everted, and the knee was again flexed. Anterior horns of both menisci were excised, and a release was performed to the posterior medial aspect of the knee. On gross visual inspection, there was complete loss of articular cartilage in the medial and patellofemoral joint spaces. There was also significant cartilage damage in the lateral compartment. There were multiple periarticular osteophytes which were then removed with a Ronguer. The femoral canal was then opened with the appropriate drill, and the intramedullary femoral cutting guide was then placed and set for 5 of valgus. The distal femoral cutting block was then pinned in place, and the distal femur was then cut. The cutting block was then removed and the cut was checked for flatness. Next, the sizing guide was then placed and set for 3 external rotation based off of the epicondylar axis and Whitesides line. After the femur was sized, the appropriate 4-in-1 cutting block was then pinned in place. The anterior condyles were cut without notching. The posterior and chamfer cuts were performed while protecting the collateral ligaments. The cutting block was then removed, and the femoral canal was plugged with autologous bone. Attention was then directed to the tibia. The remaining ACL was removed with a Ronguer, and the tibia was then gently subluxed forward with a large bent knee retractor. Any remaining menisci was excised. The posterior lateral corner was cauterized in order to cauterize the lateral geniculate artery. The extra medullary tibial cutting guide was then placed, set for the appropriate rotation, slope, and depth of resection. The proximal tibia cutting guide was then pinned in place. Proximal tibia was then cut and sized. Next trials were then placed with the appropriate-sized insert. The knee was able to fully extend and flex to 130 and was stable throughout all range of motion. The knee was then extended, patella everted. Patella was then measured, and then using an osteotomy guide, the patella was cut at the appropriate level. The patella was then measured and drilled and the patella trial was then placed. The knee was then taken through range of motion with the patella trial and the patella tracked normally. The knee was then extended patella trial was then removed and the patella was everted. Knee was then flexed and lug holes were drilled through the femoral trial and the femoral trial was then removed. The tibial was then exposed, and the tibial broach guide was then pinned in place after it was set for the appropriate rotation to allow for the most coverage without overhang. The tibia was then reamed and broached. The cut surfaces of bone were then irrigated with pulsatile lavage. The posterior structures were injected with the ropivacaine solution. The knee was also irrigated with Irrisept solution. The components were then opened, the cement was mixed, and the components were then cemented in place. The cement was allowed to harden with the knee in full extension. While the cement was hardening, the remaining soft tissues were then injected with a ropivacaine solution, which consisted of 246.25 mg of ropivacaine, 0.5 mg of epinephrine, 30 mg of Toradol, 80 g of clonidine, and 48.45 mL of sterile water, for a total of 100 mL of fluid injected. After the cemented hardened. The tourniquet was released, and hemostasis was obtained. A second gram of transexamic acid was given. The knee was again irrigated. The knee was again taken through range of motion and found to be stable throughout all range of motion of 0-130, and the patella tracked normally. The fascia was then closed with #2 strata fix suture. The subcutaneous tissue was closed with 3-0 Vicryl and 3-0 strata fix. Dermabond glue was used for the skin and placed with the knee in flexion. The patient was placed in a sterile silver dressing. Patient was then transferred to recovery room in stable condition. The produce assistant MARBELLA Mesa was required due the complexity surgery and the need for a skilled rn medical surgical. She assisted in positioning, draping, retraction, and closure of the wound.
[2019-06-25] MEDS ORDERED: ROPIVACAINE 0.2%-NS ON-Q PUMP 1,090 MG, EMPTY PAIN BALL 1 EACH MISCELLANE PRN (14:21)
--- NOTE | 2019-06-25 15:01 | XR ---
Limited left knee HISTORY: Postop left knee arthroplasty 2 views of left knee No comparisons Patient is status post left knee arthroplasty. Femoral component shows its central margin at the ceph alad aspect project lateral to the distal left femoral metaphysis. There is some widening of the late ral compartment as compared to the medial compartment. Lucency in the soft tissues is compatible with postop state. Soft tissue calcifications likely due to venous stasis disease. Possible joint effusio n, suprapatellar increased density is present. IMPRESSION: Some widening of the lateral joint space is compared to the medial, questionable slight r otation of the distal femur in relation to the proximal leg. Postop findings as described.
--- NOTE | 2019-06-25 17:47 | P.CONS ---
History of Present Illness - Reason for Consult Consult date: 06/25/19 high blood pressure Requesting physician: Olu Zuniga - Chief Complaint left knee pain - History of Present Illness Patient is a 69-year-old male past medical history of hypertension, arthritis, GERD, enlarged prostate, morbid obesity who presented for elective left total knee arthroplasty secondary to severe osteoarthritis. He underwent left total knee replacement with Dr. Zuniga on 06/25 without any immediate postoperative complications. Patient has plans to go to [facility] for rehabilitation after discharge home. He has had extreme difficulty ambulating prior to admission. Patient seen and examined at bedside. He reports that his left lower extremity feels tight and Torsten wrap. He is not having any overt pain but just feels off. He denies any nausea, vomiting, diarrhea, or constipation. He has no other complaints currently. He reports that he had extreme difficulty ambulating at home secondary to excruciating pain. He feels as though he plans to go to rehab after discharge from the hospital and this has been inplace prior to his surgery. No recent changes in medications. Review of Systems Pertinent positives and negatives as discussed in HPI, a complete review of systems was performed and all other systems are negative. Past Medical History Past Medical History: Eye Disorder, GERD/Reflux, Hypertension Additional Past Medical History / Comment(s): arthritis, EARLY GLAUCOMA History of Any Multi-Drug Resistant Organisms: None Reported Past Surgical History: Bladder Surgery, Hernia Repair, Joint Replacement, Orthopedic Surgery Additional Past Surgical History / Comment(s): RT elbow SX, hernia CHILD, spot removed from bladder, RT KNEE REPLACEMENT, LT SHOULDER SX Past Anesthesia/Blood Transfusion Reactions: No Reported Reaction Past Psychological History: No Psychological Hx Reported Additional Psychological History / Comment(s): Pt resides with his spouse. He is independent. Smoking Status: Former smoker Past Alcohol Use History: Rare Additional Past Alcohol Use History / Comment(s): Pt started smoking in 1966 and quit in 1976. Past Drug Use History: None Reported - Past Family History Mother Family Medical History: Cancer Additional Family Medical History / Comment(s): Mother is from lung cancer. She was a smoker. Father Family Medical History: Cancer Additional Family Medical History / Comment(s): Father is from lung cancer. He was a smoker. Medications and Allergies Home Medications Medication Instructions Recorded Confirmed Type amLODIPine/VALSARTAN [Exforge 1 tab PO QAM 05/01/14 06/25/19 History 5-160 MG] Tamsulosin [Flomax] 0.4 mg PO HS 06/20/19 06/25/19 History Timolol 0.5% Ophth Soln [Timoptic 1 drop BOTH EYES DAILY 06/20/19 06/25/19 History 0.5% Ophth Soln] Allergies Allergy/AdvReac Type Severity Reaction Status Date / Time codeine Allergy Nausea & Verified 06/25/19 10:02 Vomiting penicillin V Allergy Nausea & Verified 06/25/19 10:02 Vomiting Physical Exam Osteopathic Statement: *. No significant issues noted on an osteopathic structural exam other than those noted in the History and Physical/Consult. Vitals: Vital Signs Temp Pulse Resp BP BP Pulse Ox 06/25/19 15:30 97.5 F L 69 16 182/62 94 L 06/25/19 15:00 65 12 100/51 96 06/25/19 14:45 64 16 99/53 99 06/25/19 14:30 62 16 93/51 98 06/25/19 14:14 70 15 91/50 99 06/25/19 14:13 97.3 F L 69 16 81/42 94 L 06/25/19 10:11 97.2 F L 72 16 146/72 95 Intake and Output 06/25/19 06/25/19 06/25/19 06:59 14:59 22:59 Intake Total 1001 Output Total 75 Balance 926 Intake: IV 1001 Output: Estimated Blood Loss 75 Other: Weight 166.468 kg General: non toxic, no distress, appears at stated age, morbid obesity Derm: no unusual rashes/lesions no unusual ecchymoses, warm, dry Head: atraumatic, normocephalic, symmetric Eyes: EOMI, no lid lag, anicteric sclera, pupils equal round reactive to light ENT: Nose and ears atraumatic, no thrush, no pharyngeal erythema Neck: No thyromegaly, no cervical lymphadenopathy, trachea midline, supple Mouth: no lip lesion, mucus membranes moist Cardiovascular: S1S2 reg, no murmur, positive posterior tibial pulse bilateral, no edema, capillary refill less than 2 seconds Lungs: Decreased breath sounds bilateral, no rhonchi, no rales , no accessory muscle use Abdominal: soft, nontender to palpation, no guarding, no appreciable organomegaly, normal bowel sounds Ext: Left lower extremity dressing in place, no gross muscle atrophy, muscle strength 5 out of 5 in all bilateral upper extremities grossly, no contractures, Neuro: CN II-XI grossly intact, finger to nose within normal limits, Psych: Alert, oriented, appropriate affect Assessment and Plan Assessment: 69-year-old male status post left total knee arthroplasty. Pain control and DVT prophylaxis per orthopedic surgery. Hypertension -Elevated after surgery likely secondary to pain -Resume amlodipine and valsartan -Follow blood pressures BPH -Flomax Morbid obesity -Structured outpatient weight loss -Secondary to his severely important mobility prior to surgery patient likely will need [facility] facility on discharge. I also anticipate that ambulation and pain control will be an issue. I am also concerned for the possibility of undiagnosed REKHA which may be exacerbated with the need for pain medications. Therefore the patient will be admitted as inpatient with anticipated stay of greater than 2 midnights secondary his multiple medical comorbidities. Case was discussed with orthopedic surgery who is in agreement. Thank you for allowing us to participate in the care of this pleasant patient. Do not hesitate to contact us with questions. Someone can be reached from the [facility] hospitalist group all hours of the day at [phone] or via [employer].
[2019-06-25] MEDS: SODIUM CHLORIDE 0.9% 1,000 ML IV SCH (17:51)
[2019-06-25] MEDS: TAMSULOSIN 0.4 MG CAP.ER.24H PO SCH (20:35)
[2019-06-25] MEDS: ASPIRIN 325 MG TAB PO SCH (20:35)
[2019-06-25] MEDS: SENNOSIDES-DOCUSATE SODIUM 1 EACH TAB PO SCH (20:35)
--- NOTE | 2019-06-25 20:43 | P.ANPRN ---
Procedure Note - Anesthesia - Nerve Block Performed Left Adductor Canal Infusion Time Out Performed: Yes Date of Procedure: 06/25/19 Procedure Start Time: 11:00 Procedure Stop Time: 11:15 Location of Patient: PreOp Indication: Acute Post-Operative Pain, Requested by Surgeon Sedation Type: Sedate with meaningful contact maintained Preparation: Sterile Prep, Sterile Dressing Position: Supine Catheter: Indwelling Needle Types: Pajunk Needle Gauge: 21 Ultrasound used to visualize needle placement: Yes Ultrasound used to observe medication spread: Yes Blood Aspirated: No Pain Paresthesia on Injection Noted: No Resistance on Injection: Normal Image Stored and Saved: Yes Events: Uneventful and Well Tolerated (ropi .5% 20cc)
[2019-06-25] MEDS: HYDROcodone/APAP 5-325MG 1 EACH TAB PO PRN (21:09)
[2019-06-26] MEDS: SODIUM CHLORIDE 0.9% 1,000 ML IV SCH ×2 (01:05→18:04)
[2019-06-26] MEDS: HYDROcodone/APAP 5-325MG 1 EACH TAB PO PRN (03:07)
[2019-06-26] MEDS: LACTATED RINGERS 1,000 ML IV SCH (04:17)
[2019-06-26 07:35] LABS: Basophils % (A) 0 %; Eosinophils % (A) 0 %; HCT 32.2 % (39.0-53.0); HGB 10.4 gm/dL (13.0-17.5); Lymphocytes # (A) 0.9 k/uL (1.0-4.8); Lymphocytes % (A) 8 %; MCH 28.1 pg (25.0-35.0); MCHC 32.4 g/dL (31.0-37.0); MCV 86.9 fL (80.0-100.0); Mean Platelet Volume 6.5; Monocytes # (A) 0.6 k/uL (0-1.0); Monocytes % (A) 6 %; Neutrophils # (A) 9.8 k/uL (1.3-7.7); Neutrophils % (A) 86 %; Platelet Count 240 k/uL (150-450); RDW 15.3 % (11.5-15.5); WBC 11.4 k/uL (3.8-10.6)
[2019-06-26] MEDS: ONDANSETRON 4 MG/2 ML VIAL IVP PRN (07:54)
--- NOTE | 2019-06-26 08:22 | P.PN ---
Subjective Progress Note Date: 06/26/19 This is a 69-year-old male who is status post left total knee arthroplasty. This is postoperative day #1 and patient is seen and evaluated at bedside with Dr. Olu Zuniga. Patient states that his pain is well-controlled and he has been working on range of motion of the left knee. Patient complains of some mild nausea this morning. Patient denies any fever/chills, numbness, weakness, tingling, abdominal pain, shortness of breath or chest pain. Objective - Vital Signs Vital signs: Vital Signs Temp 97.7 F 06/26/19 07:00 Pulse 69 06/26/19 07:00 Resp 17 06/26/19 07:00 BP 128/61 06/26/19 07:00 Pulse Ox 95 06/26/19 07:00 Intake & Output 06/25/19 06/26/19 06/26/19 18:59 06:59 18:59 Intake Total 1001 2010 Output Total 475 500 Balance 526 1510 Weight 166.468 kg Intake: IV 1001 Intake, IV Titration 730 Amount Sodium Chloride 0.9% 1, 630 000 ml @ 70 mls/hr IV . [id number] ALLIE Rx#:[id number] ceFAZolin 2 gm In Sodium 100 Chloride 0.9% 50 ml @ 100 mls/hr IVPB Q8H ALLIE Rx#: [id number] Oral 1280 Output: Urine 400 500 Estimated Blood Loss 75 Other: Voiding Method Urinal # Voids 1 - Exam Vital signs are stable. Patient is in no acute distress and is alert and oriented 3. Calf is soft and nontender to palpation. Dressing is clean, dry, and intact. Patient has full foot and ankle motion without pain or difficulty. Neurovascular status and circulatory status are intact. - Labs CBC & Chem 7: 06/26/19 06:56 Labs: Abnormal Lab Results - Last 24 Hours (Table) 06/26/19 Range/Units 06:56 WBC 11.4 H (3.8-10.6) k/uL RBC 3.70 L (4.30-5.90) m/uL Hgb 10.4 L (13.0-17.5) gm/dL Hct 32.2 L (39.0-53.0) % Neutrophils # 9.8 H (1.3-7.7) k/uL Lymphocytes # 0.9 L (1.0-4.8) k/uL Assessment and Plan (1) Status post total left knee replacement Current Visit: Yes Status: Acute Code(s): Z96.652 - PRESENCE OF LEFT ARTIFICIAL KNEE JOINT SNOMED Code(s): 1025222078890 (2) Osteoarthritis of left knee Current Visit: Yes Status: Acute Code(s): M17.12 - UNILATERAL PRIMARY OSTEOARTHRITIS, LEFT KNEE SNOMED Code(s): 125081112878715 Plan: #1 Continue with routine postoperative care and pain control, leave dressing in place for ten days. #2 Anticoagulation with aspirin. #3 Physical therapy and CPM today. #4 Appreciate input from medicine. #5 Anticipate discharge to the [facility] on Monday.
[2019-06-26] MEDS ORDERED: AMLODIPINE PO SCH (09:00)
[2019-06-26] MEDS ORDERED: VALSARTAN PO SCH (09:00)
--- NOTE | 2019-06-26 10:35 | P.PN ---
Progress Note - Text 06/26 644am 69-year-old male status post total knee replacement by Dr. Raines height off. Patient seen and evaluated this morning, patient has an On-Q pump for postop pain control VAS3. Plan to continue On-Q pump infusion
[2019-06-26] MEDS ORDERED: FAMOTIDINE 20 MG/2 ML VIAL IV STA (11:29)
[2019-06-26] MEDS: MELOXICAM 7.5 MG TAB PO SCH (12:49)
[2019-06-26] MEDS: VALSARTAN 160 MG TAB PO SCH (12:49)
[2019-06-26] MEDS: ASPIRIN 325 MG TAB PO SCH ×2 (12:50→20:51)
[2019-06-26] MEDS: amLODIPine 5 MG TAB PO SCH (12:50)
[2019-06-26] MEDS: TIMOLOL 0.5% OPHTH DROPS 5 ML BTL BOTH EYES SCH (12:51)
[2019-06-26] MEDS: HYDROmorphone 0.5 MG/0.5 ML SYRINGE IVP PRN ×2 (13:29→18:05)
[2019-06-26] MEDS: TAMSULOSIN 0.4 MG CAP.ER.24H PO SCH (17:10)
--- NOTE | 2019-06-26 19:19 | P.PN ---
Subjective Progress Note Date: 06/26/19 (Delayed charting patient seen at 10:30) Principal diagnosis: Knee pain Patient is a 69-year-old male past medical history of hypertension, arthritis, GERD, enlarged prostate, morbid obesity who presented for elective left total knee arthroplasty secondary to severe osteoarthritis. He underwent left total knee replacement with Dr. Zuniga on 06/25 without any immediate postoperative complications. Patient has plans to go to [facility] for rehabilitation after discharge home. He has had extreme difficulty ambulating prior to admission. He did have a history of significant scar tissue development after his right knee replacement requiring manipulation under anesthesia. Patient seen and examined at bedside. He is having some nausea today. He reports that the Zofran helped with did not completely take the nausea way. He still has an appetite. He denies any constipation or abdominal pain or diarrhea. He denies any chest pain or shortness of breath. Objective - Vital Signs Vital signs: Vital Signs Temp 97.5 F L 06/26/19 14:47 Pulse 72 06/26/19 14:47 Resp 18 06/26/19 14:47 BP 137/76 06/26/19 14:47 Pulse Ox 93 L 06/26/19 14:47 Intake & Output 06/26/19 06/26/19 06/27/19 06:59 18:59 06:59 Intake Total 2009 Output Total 500 Balance 1510 Intake: Intake, IV Titration 730 Amount Sodium Chloride 0.9% 1, 630 000 ml @ 70 mls/hr IV . [id number] [facility] Rx#:[id number] ceFAZolin 2 gm In Sodium 100 Chloride 0.9% 50 ml @ 100 mls/hr IVPB Q8H [facility] Rx#: [id number] Oral 1280 Output: Urine 500 Other: Voiding Method Urinal # Voids 1 1 - Exam General: non toxic, no distress, appears older than stated age, morbidly obese Derm: warm, dry Head: atraumatic, normocephalic, symmetric Eyes: EOMI, no lid lag, anicteric sclera Mouth: no lip lesion, mucus membranes moist Cardiovascular: S1S2 reg, no murmur, positive posterior tibial pulse bilateral, Lungs: Decreased breath sounds bilateral, no rhonchi, no rales , no accessory muscle use Abdominal: soft, nontender to palpation, no guarding, no appreciable organomegaly Ext: no gross muscle atrophy, trace edema left lower extremity, no contractures Neuro: CN II-XI grossly intact, no focal neuro deficits Psych: Alert, oriented, appropriate affect - Labs CBC & Chem 7: 06/26/19 06:56 Labs: Abnormal Lab Results - Last 24 Hours (Table) 06/26/19 Range/Units 06:56 WBC 11.4 H (3.8-10.6) k/uL RBC 3.70 L (4.30-5.90) m/uL Hgb 10.4 L (13.0-17.5) gm/dL Hct 32.2 L (39.0-53.0) % Neutrophils # 9.8 H (1.3-7.7) k/uL Lymphocytes # 0.9 L (1.0-4.8) k/uL Assessment and Plan Assessment: 69-year-old male status post left total knee arthroplasty. Pain control and DVT prophylaxis per orthopedic surgery. Nausea -Suspect related to GERD -IV Pepcid X 1 - start oral pepcid in AM Acute blood loss anemia, anticipated outcome of surgery - due to GI upset will hold off on oral iron - anticipate that with iron rich diet this will self correct - repeat CBC in 1 week as outpatient Hypertension -Elevated after surgery likely secondary to pain -Resume amlodipine and valsartan -Follow blood pressures BPH -Flomax Morbid obesity, BMI 58.3 -Structured outpatient weight loss -Secondary to his severely important mobility prior to surgery patient likely will need snf facility on discharge. I also anticipate that ambulation and pain control will be an issue. I am also concerned for the possibility of undiagnosed REKHA which may be exacerbated with the need for pain medications. Therefore the patient will be admitted as inpatient with anticipated stay of greater than 2 midnights secondary his multiple medical comorbidities. Case was discussed with orthopedic surgery who is in agreement. DVT prophylaxis: ASA Discussed with: Patient, nursing Anticipated discharge: 2-[address]: [facility] A total of 23 minutes was spent on the care of this complex patient more than 50% of the time was spent in counseling and care coordination. .
--- NOTE | 2019-06-26 19:30 | XR ---
EXAMINATION TYPE: XR knee limited LT DATE OF EXAM: 06/26/2019 COMPARISON: NONE HISTORY: Knee pain TECHNIQUE: 2 views FINDINGS: There is a left knee prosthesis. Components are in anatomic position. I see no fracture nor dislocation. IMPRESSION: No fracture seen.
[2019-06-26] MEDS: SENNOSIDES-DOCUSATE SODIUM 1 EACH TAB PO SCH (20:51)
[2019-06-27] MEDS: HYDROcodone/APAP 5-325MG 1 EACH TAB PO PRN ×4 (00:15→20:10)
[2019-06-27] MEDS: SODIUM CHLORIDE 0.9% 1,000 ML IV SCH ×2 (00:16→20:04)
[2019-06-27] MEDS: LACTATED RINGERS 1,000 ML IV SCH ×2 (04:18→20:05)
[2019-06-27] MEDS: MELOXICAM 7.5 MG TAB PO SCH (07:30)
[2019-06-27] MEDS: ASPIRIN 325 MG TAB PO SCH ×2 (07:30→20:07)
[2019-06-27] MEDS: amLODIPine 5 MG TAB PO SCH (07:30)
[2019-06-27] MEDS: VALSARTAN 160 MG TAB PO SCH (07:30)
[2019-06-27] MEDS: TIMOLOL 0.5% OPHTH DROPS 5 ML BTL BOTH EYES SCH (07:31)
[2019-06-27 08:03] VITALS: RESP 18
[2019-06-27] MEDS: ONDANSETRON 4 MG/2 ML VIAL IVP PRN (09:04)
--- NOTE | 2019-06-27 09:42 | P.PN ---
Subjective Progress Note Date: 06/27/19 Principal diagnosis: Status post left total knee arthroplasty This is a 69 year-old male post left total knee arthroplasty. This is post-op day 2. The patient was evaluated at the bedside today. The patient denies nausea, vomiting, abdominal pain, shortness of breath, and chest pain this morning. He states his pain is moderately controlled at this time. The patient has been up to the bathroom multiple times last night. Yesterday, the nursing staff called regarding the patient experienced a snap in his knee when he sat down on the toilet. X-rays were taken and were negative for fracture. The patient denies any increased pain at rest or with weightbearing since yesterday. No new complaints today. Objective - Vital Signs Vital signs: Vital Signs Temp 97.6 F 06/27/19 07:00 Pulse 89 06/27/19 07:00 Resp 18 06/27/19 07:10 BP 155/85 06/27/19 07:00 Pulse Ox 95 06/27/19 07:00 Intake & Output 06/26/19 06/27/19 06/27/19 18:59 06:59 18:59 Intake Total 620 236 Balance 620 236 Weight 54.5 kg Intake: Intake, IV Titration 140 Amount Sodium Chloride 0.9% 1, 140 000 ml @ 70 mls/hr IV . [id number] [facility] Rx#:[id number] Oral 480 236 Other: Voiding Method Toilet Toilet Urinal Urinal # Voids 1 1 - Exam The patient does not appear in acute distress. Alert and orientated x3. Dressing is clean dry and intact. No erythema or active drainage. Calf is soft and nontender. Good foot and ankle motion without difficulty. Sensation and circulatory status is intact. - Labs CBC & Chem 7: 06/26/19 06:56 Assessment and Plan (1) Osteoarthritis of left knee Current Visit: Yes Status: Acute Code(s): M17.12 - UNILATERAL PRIMARY OSTEOARTHRITIS, LEFT KNEE SNOMED Code(s): 394235441730919 (2) Status post total left knee replacement Current Visit: Yes Status: Acute Code(s): Z96.652 - PRESENCE OF LEFT ARTIFICIAL KNEE JOINT SNOMED Code(s): 9496882342877 (3) Essential hypertension Current Visit: No Status: Acute Code(s): I10 - ESSENTIAL (PRIMARY) HYPERTENSION SNOMED Code(s): 52132801 (4) Morbid obesity Current Visit: No Status: Acute Code(s): E66.01 - MORBID (SEVERE) OBESITY DUE TO EXCESS CALORIES SNOMED Code(s): 265710558 (5) REKHA (obstructive sleep apnea) Current Visit: No Status: Acute Code(s): G47.33 - OBSTRUCTIVE SLEEP APNEA (ADULT) (PEDIATRIC) SNOMED Code(s): 63244553 Plan: 1. Continue pain control 2. Anticoagulation with Aspirin BID 3. Continue physical therapy and ambulation 4. Anticipate discharge to skilled rehab tomorrow.
--- NOTE | 2019-06-27 13:37 | P.PN ---
Subjective Progress Note Date: 06/27/19 Principal diagnosis: Knee pain Patient is a 69-year-old male past medical history of hypertension, arthritis, GERD, enlarged prostate, morbid obesity who presented for elective left total knee arthroplasty secondary to severe osteoarthritis. He underwent left total knee replacement with Dr. Zuniga on 06/25 without any immediate postoperative complications. Patient has plans to go to [facility] for rehabilitation after discharge. He has had extreme difficulty ambulating prior to admission. He did have a history of significant scar tissue development after his right knee replacement requiring manipulation under anesthesia. Patient seen and examined at bedside. Still with some nausea, no vomiting, tolerating diet, pain increased today and went up on onQ ball. Objective - Vital Signs Vital signs: Vital Signs Temp 97.6 F 06/27/19 07:00 Pulse 89 06/27/19 07:00 Resp 18 06/27/19 07:10 BP 155/85 06/27/19 07:00 Pulse Ox 95 06/27/19 07:00 Intake & Output 06/26/19 06/27/19 06/27/19 18:59 06:59 18:59 Intake Total 620 694 Balance 620 694 Weight 54.5 kg Intake: Intake, IV Titration 140 Amount Sodium Chloride 0.9% 1, 140 000 ml @ 70 mls/hr IV . [id number] [facility] Rx#:[id number] Oral 480 694 Other: Voiding Method Toilet Toilet Urinal Urinal # Voids 1 1 - Exam General: non toxic, no distress, appears older than stated age, morbidly obese Derm: warm, dry Head: atraumatic, normocephalic, symmetric Eyes: EOMI, no lid lag, anicteric sclera Mouth: no lip lesion, mucus membranes moist Cardiovascular: S1S2 reg, no murmur, positive posterior tibial pulse bilateral, Lungs: Decreased breath sounds bilateral, no rhonchi, no rales , no accessory muscle use Abdominal: soft, nontender to palpation, no guarding, no appreciable organomegaly Ext: no gross muscle atrophy, 1+ edema bilateral lower extremities, no contractures Neuro: CN II-XI grossly intact, no focal neuro deficits Psych: Alert, oriented, appropriate affect - Labs CBC & Chem 7: 06/26/19 06:56 Assessment and Plan Assessment: 69-year-old male status post left total knee arthroplasty. Pain control and DVT prophylaxis per orthopedic surgery. Nausea -Suspect related to GERD -pepcid - prn zofran Acute blood loss anemia, anticipated outcome of surgery - due to GI upset will hold off on oral iron - anticipate that with iron rich diet this will self correct - repeat CBC in 1 week as outpatient Hypertension -controlled -Amlodipine and valsartan -Follow blood pressures BPH -Flomax Morbid obesity, BMI 58.3 -Structured outpatient weight loss -Secondary to his severely impaired mobility prior to surgery patient likely will need long-term facility on discharge. I also anticipate that ambulation and pain control will be an issue. I am also concerned for the possibility of undiagnosed REKHA which may be exacerbated with the need for pain medications. Therefore the patient was admitted as inpatient with anticipated stay of greater than 2 midnights secondary his multiple medical comorbidities. DVT prophylaxis: ASA Discussed with: Patient, nursing Anticipated discharge: in AM Anticipated discharge place: [facility] A total of 23 minutes was spent on the care of this complex patient more than 50% of the time was spent in counseling and care coordination. .
[2019-06-27] MEDS: FAMOTIDINE 20 MG TAB PO SCH (13:41)
[2019-06-27] MEDS: SENNOSIDES-DOCUSATE SODIUM 1 EACH TAB PO SCH (20:04)
[2019-06-27] MEDS: TAMSULOSIN 0.4 MG CAP.ER.24H PO SCH (20:11)
[2019-06-28 07:33] LABS: Basophils % (A) 1 %; Eosinophils # (A) 0.2 k/uL (0-0.7); Eosinophils % (A) 4 %; HGB 9.6 gm/dL (13.0-17.5); Lymphocytes # (A) 0.9 k/uL (1.0-4.8); Lymphocytes % (A) 16 %; MCHC 31.9 g/dL (31.0-37.0); MCV 87.8 fL (80.0-100.0); Mean Platelet Volume 6.6; Monocytes # (A) 0.3 k/uL (0-1.0); Monocytes % (A) 6 %; Neutrophils # (A) 4.2 k/uL (1.3-7.7); Neutrophils % (A) 73 %; Platelet Count 203 k/uL (150-450); RBC 3.42 m/uL (4.30-5.90); RDW 15.5 % (11.5-15.5); WBC 5.8 k/uL (3.8-10.6)
[2019-06-28 08:07] VITALS: BP 125/82; PULSE 89; TEMP 97.8
--- NOTE | 2019-06-28 08:10 | P.DS ---
Providers Date of admission: 06/25/19 17:40 Expected date of discharge: 06/28/19 Attending physician: Olu Zuniga Consults: 06/25/19 10:37 Consult Physician Routine Consulting Provider: Taty Potts Consult Reason/Comments: medical management Do you want consulting provider notified?: Yes Primary care physician: Marlon Murphy - Discharge Diagnosis(es) (1) Status post total left knee replacement Current Visit: Yes Status: Acute (2) Osteoarthritis of left knee Current Visit: Yes Status: Acute Hospital Course: This is a 69-year-old male with known history of degenerative arthritis of the left knee. The patient presents for evaluation. After discussion and consideration patient elects to proceed with total knee arthroplasty. The patient is seen preoperatively by Dr. Zuniga and medically cleared for surgery by their primary care physician. Patient is admitted to [facility] on 06/25/2019 for total knee arthroplasty. The procedures performed without complication or sequelae. The patient is doing well postoperatively. Labs and vital signs are stable on day of discharge. On day of discharge patient's knee incision is healing well. There is minimal erythema. There is no drainage noted at this time. There is minimal soft tissue swelling to the knee. Patient has full foot and ankle motion without difficulty or pain. Calf is soft and nontender to palpation. Neurovascular status to the left lower extremity is intact. Patient is discharged to rehab in good condition. Opioid start talking form is reviewed and signed at patient bedside. Please see med rec for accurate list of home medications. Plan - Discharge Summary Discharge Rx Participant: Yes New Discharge Prescriptions: New Aspirin 325 mg PO BID #60 tab HYDROcodone/APAP 5-325MG [Mccune 5-325] 1 - 2 tab PO Q6HR PRN #56 tab PRN Reason: Pain Sennosides [Senokot] 1 tab PO BID #60 tablet No Action amLODIPine/VALSARTAN [Exforge 5-160 MG] 1 tab PO QAM Timolol 0.5% Ophth Soln [Timoptic 0.5% Ophth Soln] 1 drop BOTH EYES DAILY Tamsulosin [Flomax] 0.4 mg PO HS Discharge Medication List amLODIPine/VALSARTAN [Exforge 5-160 MG] 1 tab PO QAM 05/01/14 [History] Tamsulosin [Flomax] 0.4 mg PO HS 06/20/19 [History] Timolol 0.5% Ophth Soln [Timoptic 0.5% Ophth Soln] 1 drop BOTH EYES DAILY 06/20/19 [History] Aspirin 325 mg PO BID #60 tab 06/28/19 [Rx] HYDROcodone/APAP 5-325MG [Mccune 5-325] 1 - 2 tab PO Q6HR PRN #56 tab 06/28/19 [Rx] Sennosides [Senokot] 1 tab PO BID #60 tablet 06/28/19 [Rx] Follow up Appointment(s)/Referral(s): Olu Zuniga DO [Doctor of Osteopathic Medicine] - 07/10/19 9:30 am Ambulatory/Diagnostic Orders: Continuous Passive Motion (CPM) Machine [DME.AMB1] Time Frame: 3 Weeks, Location: None Selected Activity/Diet/Wound Care/Special Instructions: Weightbearing as tolerated with a walker. CPM 5-6h daily. Leave dressing intact. May be removed by home care nurse or by patient in 10 days. May shower with dressing on. Recommend use of compression stockings daily for at least 2 weeks during the day to help prevent swelling and blood clots. May remove at night before sleeping. Please follow up with [facility] and call with any questions or co ncerns, . Discharge Disposition: HOME WITH HOME HEALTH SERVICES
[2019-06-28] MEDS: MELOXICAM 7.5 MG TAB PO SCH (08:27)
[2019-06-28] MEDS: amLODIPine 5 MG TAB PO SCH (08:28)
[2019-06-28] MEDS: ASPIRIN 325 MG TAB PO SCH (08:28)
[2019-06-28] MEDS: FAMOTIDINE 20 MG TAB PO SCH (08:28)
[2019-06-28] MEDS: VALSARTAN 160 MG TAB PO SCH (08:28)
[2019-06-28] MEDS: TIMOLOL 0.5% OPHTH DROPS 5 ML BTL BOTH EYES SCH (08:29)
== END 2019-06-28 12:07 | DRG 470 ==
LOC: OR 09:35 → 4SSUR 14:12 → OR 17:40 → 4SSUR 17:40
PROVIDERS: ADMIT Orthopaedic Surgery; ATTEND Orthopaedic Surgery
PROC: 0SRD069 Replacement of Left Knee Joint with Oxidized Zirconium on Polyethylene Synthetic Substitute, Cemented, Open Approach (ICD-10-PCS; principal; 2019-06-25 11:45)
DX: M17.12 Unilateral primary osteoarthritis, left knee (principal); D62 Acute posthemorrhagic anemia; Z68.43 Body mass index [BMI] 50.0-59.9, adult; E66.01 Morbid (severe) obesity due to excess calories; G47.33 Obstructive sleep apnea (adult) (pediatric); I10 Essential (primary) hypertension; N40.0 Benign prostatic hyperplasia without lower urinary tract symptoms; Z80.1 Family history of malignant neoplasm of trachea, bronchus and lung; Z87.891 Personal history of nicotine dependence; Z96.651 Presence of right artificial knee joint; Z79.899 Other long term (current) drug therapy; Z88.5 Allergy status to narcotic agent; Z88.0 Allergy status to penicillin; H40.9 Unspecified glaucoma
CPT/HCPCS: 64448; 76942; 85025; 88300

== ENCOUNTER → 2019-12-30 | Outpatient (CLI) | payer MEDICARE | END | disposition home or self-care (01) | LOC: LABWHC1 08:04 | PROVIDERS: ATTEND Surgery Plastic and Reconstructive Surgery | DX: Z11.59 Encounter for screening for other viral diseases (principal) ==

== ENCOUNTER 2020-01-01 06:45 | Day surgery (SDC) | payer MEDICARE ==
[2019-12-27 12:13] VITALS: BMI 54.8
--- NOTE | 2019-12-31 20:40 | P.GSHP ---
History of Present Illness H&P Date: 01/01/20 CHIEF COMPLAINT: GERD and colon screen HISTORY OF PRESENT ILLNESS: The patient is a 69-year-old male who presents with gastroesophageal reflux disease and need for colon screen. Upper and lower endoscopy were offered for further evaluation and management. PAST MEDICAL HISTORY: Please see list. PAST SURGICAL HISTORY: Please see list. MEDICATIONS: Please see list. ALLERGIES: Please see list. SOCIAL HISTORY: No illicit drug use FAMILY HISTORY: No reports of Crohn disease or ulcerative colitis. REVIEW OF ORGAN SYSTEMS: CONSTITUTIONAL: No reports of fevers or chills. PHYSICAL EXAM: VITAL SIGNS: Stable GENERAL: Well-developed pleasant in no acute distress. HEENT: No scleral icterus. Extraocular movements grossly intact. Moist buccal mucosa. NECK: Supple without lymphadenopathy. CHEST: Unlabored respirations. Equal bilateral excursions. CARDIOVASCULAR: Regular rate and rhythm. Distal 2+ pulses. ABDOMEN: Soft, nondistended. MUSCULOSKELETAL: No clubbing, cyanosis, or edema. ASSESSMENT: 1. Gastroesophageal reflux disease 2. Colon screen. PLAN: 1. Recommend proceeding with an upper and lower endoscopy Past Medical History Past Medical History: Eye Disorder, GERD/Reflux, Hypertension, Sleep Apnea/CPAP/BIPAP Additional Past Medical History / Comment(s): arthritis, EARLY GLAUCOMA History of Any Multi-Drug Resistant Organisms: None Reported Past Surgical History: Bladder Surgery, Hernia Repair, Joint Replacement, Orthopedic Surgery Additional Past Surgical History / Comment(s): RT elbow,, spot removed from bladder,. BILAT TKA, LT SHOULDER. COLONOSCOPY. LYPOMA REMOVED FROM BACK AREA Past Anesthesia/Blood Transfusion Reactions: No Reported Reaction Smoking Status: Former smoker - Past Family History Mother Family Medical History: Cancer Additional Family Medical History / Comment(s): Mother is from lung cancer. She was a smoker. Father Family Medical History: Cancer Additional Family Medical History / Comment(s): Father is from lung cancer. He was a smoker. Medications and Allergies Home Medications Medication Instructions Recorded Confirmed Type amLODIPine/VALSARTAN [Exforge 1 tab PO QAM 05/01/14 12/27/19 History 5-160 MG] Tamsulosin [Flomax] 0.4 mg PO HS 06/20/19 12/27/19 History Timolol 0.5% Ophth Soln [Timoptic 1 drop BOTH EYES DAILY 06/20/19 12/27/19 History 0.5% Ophth Soln] Allergies Allergy/AdvReac Type Severity Reaction Status Date / Time codeine Allergy Nausea & Verified 12/27/19 12:04 Vomiting penicillin V Allergy Nausea & Verified 12/27/19 12:04 Vomiting
[~2020-01-01 06:45] MED LIST changes: -ACETAMINOPHEN TAB 500 MG TAB PO ONE; -DEXAMETHASONE SOD PHOSPHATE 10 MG/ML 1 ML VIAL IV ONE; -GABAPENTIN 300 MG CAP PO ONE; -HYDROmorphone 0.5 MG/0.5 ML SYRINGE IVP PRN; +LACTATED RINGERS 1,000 ML IV SCH; +LIDOCAINE 1% (10MG/ML) FOR IV START INTRADERMA PRN; -LIDOCAINE 1% 20 ML VIAL (10MG/ML) FOR IV START INTRADERMA PRN; -MELOXICAM 7.5 MG TAB PO ONE; -MIDAZOLAM 2 MG/2 ML VIAL IV PRN; -ROPIVACAINE 246.25 MG, EPINEPHrine 0.5 MG, KETOROLAC 30 MG, cloNIDine HCL/PF 80 MCG, WA... MISCELLANE ONE; -TRANEXAMIC ACID 1,000 MG in SODIUM CHLORIDE 0.9% 100 ML IVPB ONE; -ceFAZolin 3 GM in SODIUM CHLORIDE 0.9% 100 ML IVPB ONE; -fentaNYL (PF) 50 MCG/ML 2 ML AMP IVP PRN
[2020-01-01 07:15] VITALS: TEMP 98.3
[2020-01-01] MEDS ORDERED: LIDOCAINE 1% INJ 10MG/ML (20 ML MDV) ONE (07:38)
[2020-01-01] MEDS ORDERED: PROPOFOL 10 MG/ML 20 ML VIAL IV ONE (07:38)
[2020-01-01] MEDS ORDERED: MIDAZOLAM 2 MG/2 ML VIAL ONE (07:38)
[2020-01-01] MEDS ORDERED: fentaNYL (PF) 50 MCG/ML 2 ML AMP ONE (07:38)
[2020-01-01] MEDS ORDERED: KETAMINE 10 MG/ML 20 ML VIAL ONE (07:38)
--- NOTE | 2020-01-01 07:45 | P.HPADDEND ---
H&P Addendum H&P Addendum Date: 01/01/20 Benefits and risks of upper or lower endoscopy. Patient reports difficulty with bowel prep. We'll proceed with upper and lower endoscopy.
--- NOTE | 2020-01-01 07:54 | P.PCN ---
Date of Procedure: 01/01/20 Description of Procedure: PREOPERATIVE DIAGNOSIS: Gastroesophageal reflux disease. Morbid obesity. POSTOPERATIVE DIAGNOSIS: Gastritis. Morbid obesity. Gastroesophageal reflux disease. OPERATION: Esophagogastroduodenoscopy with biopsies along antrum. SURGEON: Aliza Haddad MD ANESTHESIA: MAC. INDICATIONS: The patient is a -year-old male who presents with a history of reflux disease. Benefits and risks of the procedure were described. Informed consent was obtained. DESCRIPTION: The patient was brought into the endoscopy suite and laid in the left lateral decubitus position. An Olympus gastroscope was passed along the posterior oropharynx down to the distal esophagus where the squamocolumnar junction was encountered at 40 cm from the incisors. The stomach was entered and no bile reflux was found. Additional findings are listed below. Biopsies with cold forceps were obtained of the antrum. The first through third portion of the duodenum was examined and unremarkable. Retroflexion of the scope confirmed Hill grade 2 lower esophageal valve. The squamocolumnar junction demonstrated LA grade B erosive esophagitis. The stomach was desufflated. The patient tolerated the procedure well. FINDINGS: Squamocolumnar junction 40 cm from the incisors. Diaphragmatic hiatus at 40 cm. Hill grade 2 lower esophageal valve. LA grade B erosive esophagitis. No active duodenitis. Chronic gastritis RECOMMENDATIONS: Upper endoscopy as needed.
--- NOTE | 2020-01-01 08:17 | P.PCN ---
Date of Procedure: 01/01/20 Description of Procedure: PREOPERATIVE DIAGNOSIS: History of colon polyps POSTOPERATIVE DIAGNOSIS: History of colon polyps Tubular adenoma ascending colon Tubular adenoma sigmoid colon Internal hemorrhoids, grade 2 OPERATION: Colonoscopy to the ileocecal valve and appendiceal orifice. Colonoscopy with multiple hot snare polypectomies SURGEON: Aliza Haddad MD. ANESTHESIA: MAC. INDICATIONS: The patient is an 69-year-old male who presents for colonoscopy. Benefits and risks were described and informed consent was obtained. DESCRIPTION OF PROCEDURE: The patient had undergone Suprep. He had been brought into the operating room and laid in the left lateral decubitus position. After adequate intravenous sedation, the rectum was examined with 2% lidocaine jelly. The prostate was unremarkable. External hemorrhoids were encountered. The rectal tone was within normal limits. No lesions were palpated in the rectal vault. An Olympus colonoscope was advanced until the ileocecal valve and appendiceal orifice were clearly viewed. The prep was fair. No sigmoid diverticulosis was encountered. Multiple colonic polyps were found and snare polypectomy. No evidence of focal colitis was found. Retroflexion of the scope demonstrated grade 2 internal hemorrhoids without active bleeding or inflammation. The colon was desufflated. The patient had tolerated the procedure well. Withdrawal time was over 6 minutes. FINDINGS: Aronchick preparation quality scale 2 (1-5) Internal hemorrhoids, grade 2 External hemorrhoids, grade 2 No arteriovenous malformations. No sigmoid diverticulosis Removal of 2 polyps: - Snare polypectomy ascending colon, 5 mm tubulovillous adenoma polyp. - Snare polypectomy 15 cm from the anal verge, 8 mm flat villous adenoma polyp, sigmoid colon No focal colitis. RECOMMENDATIONS: Given severity of tubular adenomas, recommend repeat colonoscopy 3 years, 2022. Plan - Discharge Summary Discharge Rx Participant: Yes New Discharge Prescriptions: Continue amLODIPine/VALSARTAN [Exforge 5-160 MG] 1 tab PO QAM Timolol 0.5% Ophth Soln [Timoptic 0.5% Ophth Soln] 1 drop BOTH EYES DAILY Tamsulosin [Flomax] 0.4 mg PO HS Discharge Medication List amLODIPine/VALSARTAN [Exforge 5-160 MG] 1 tab PO QAM 05/01/14 [History] Tamsulosin [Flomax] 0.4 mg PO HS 06/20/19 [History] Timolol 0.5% Ophth Soln [Timoptic 0.5% Ophth Soln] 1 drop BOTH EYES DAILY 06/20/19 [History] Follow up Appointment(s)/Referral(s): [facility] [NON-STAFF] - 1 Week Patient Instructions/Handouts: *Surgery [facility] - (Anesthesia) Endoscopy Discharge Instructions, Colonoscopy (DC), Upper Endoscopy (DC) Activity/Diet/Wound Care/Special Instructions: Repeat colonoscopy in years2022 Discharge Disposition: HOME SELF-CARE
[2020-01-01 08:19] VITALS: RESP 18
[2020-01-01 08:39] VITALS: BP 127/68; PULSE 80
== END 2020-01-01 08:53 | disposition home or self-care (01) ==
LOC: ORWHC2ENDO 06:45
PROVIDERS: ATTEND Surgery Plastic and Reconstructive Surgery
DX: Z12.11 Encounter for screening for malignant neoplasm of colon (principal); D12.2 Benign neoplasm of ascending colon; D12.5 Benign neoplasm of sigmoid colon; K29.50 Unspecified chronic gastritis without bleeding; K21.0 Gastro-esophageal reflux disease with esophagitis; K22.10 Ulcer of esophagus without bleeding; K64.1 Second degree hemorrhoids; K64.4 Residual hemorrhoidal skin tags; I10 Essential (primary) hypertension; G47.33 Obstructive sleep apnea (adult) (pediatric); E66.01 Morbid (severe) obesity due to excess calories; M19.90 Unspecified osteoarthritis, unspecified site; H40.9 Unspecified glaucoma; Z86.010 Personal history of colon polyps; Z88.0 Allergy status to penicillin; Z88.5 Allergy status to narcotic agent; Z99.89 Dependence on other enabling machines and devices; Z79.899 Other long term (current) drug therapy; Z98.890 Other specified postprocedural states; Z96.653 Presence of artificial knee joint, bilateral; Z87.891 Personal history of nicotine dependence; Z68.43 Body mass index [BMI] 50.0-59.9, adult; Z80.1 Family history of malignant neoplasm of trachea, bronchus and lung; Z81.2 Family history of tobacco abuse and dependence
CPT/HCPCS: 88305; 45385; 43239; J2250; J2001; J3010; J2704

== ENCOUNTER → 2020-01-15 | Outpatient (CLI) | payer MEDICARE ==
[2020-01-15 16:07] VITALS: BP 140/81; PULSE 92; RESP 16; TEMP 98; BMI 60.2
--- NOTE | 2020-01-15 16:28 | P.HPBAR ---
Bariatric H&P - History & Physicial H&P Date: 01/15/20 History & Physicial: Visit/CC: Start Pursuing Again Patient initial contact: Initial weight: 159.029 kg Initial weight in pounds: 350.60 Height: 5 ft 5.5 in Initial BMI: 57.4 Last weight: Current weight: 166.922 kg Current weight in pounds: 368.00 Current BMI: 60.2 [place] body weight (based on NIH guidelines): 63.049 kg Excess body weight loss: The patient is a 70 year-old M who presents for Bariatric Assessment. REASON FOR CONSULTATION: Bariatric evaluation HISTORY OF PRESENT ILLNESS: Brendan Carballo is a 70-year-old male with lifelong morbid obesity. He has been trying to undergo weight loss surgery for over 6+ years. Six years ago, he weighed 350 pounds. Today he comes in weighing 367 pounds. He has gained 17 pounds in 6 years. He has a family members with morbid obesity. He reports previous history of gastroesophageal reflux disease. He reports a strong family history of morbid obesity, where his nephew weighed 400 pounds. He reports family history of colon cancer in his grandfather. He has tried multiple weight loss options in the past, including an Maribel's diet. He had gotten down to 280 pounds. He states that the lowest he has weighed was 185 pounds back in the 1970s, but since quitting smoking his weight has ballooned. As a result of his morbid obesity, he has end-stage osteoarthritis of the knees requiring surgery. He is looking into the sleeve gastrectomy. He wants to get down to 180 pounds. At his height of 5 feet 5.5 inches, his present weight is 367 pounds and his body mass index is 60.3. His ideal body weight is 149 pounds. He is 218 pounds overweight. PAST MEDICAL HISTORY: 1. Super morbid obesity, BMI 60.3 2. Hypertension. 3. Glaucoma. 4. Gastroesophageal reflux disease. 5. Obstructive sleep apnea. 6. Osteoarthritis, knees 7. Colon polyps 8. Benign prostatic hypertrophy PAST SURGICAL HISTORY: 1. EGD. 2. Colonoscopy. 3. Reports having a bladder procedure. 4. History of knee replacement. 5. History of hernia repair. 6. Elbow procedure. MEDICATIONS: Home Medications Medication Instructions Recorded Confirmed amLODIPine/VALSARTAN [Exforge 1 tab PO QAM 05/01/14 01/01/20 5-160 MG] Tamsulosin [Flomax] 0.4 mg PO HS 06/20/19 01/01/20 Timolol 0.5% Ophth Soln [Timoptic 1 drop BOTH EYES DAILY 06/20/19 01/01/20 0.5% Ophth Soln] ALLERGIES: 1. CODEINE. 2. PENICILLIN. SOCIAL HISTORY: Remote tobacco user. Also past history of alcohol abuse. FAMILY HISTORY: Pertinent for super morbid obesity. He has a family history of colon cancer in his grandfather. Denies any stomach or esophageal cancer. Parents have lung cancer. Nephew weighed over 400 pounds. REVIEW OF SYSTEMS: CONSTITUTIONAL: Denies fevers or chills. HEENT: Has troubles with vision. Denies any troubles with hearing. Has glaucoma. ENDOCRINE: No reports of blood sugar or glucose intolerance or hypothyroidism. CARDIOVASCULAR: Denies any recent heart attack or chest pain. RESPIRATORY: Has obstructive sleep apnea. Denies any active dyspnea on exertion. GI: Denies any bright red blood per rectum. Has gastroesophageal reflux disease and colon polyps. : History of bladder tumor status post cystoscopy and removal of bladder tumor. MUSCULOSKELETAL: Osteoarthritis of the knees. Has occasional back pain. NEURO: Denies any stroke or seizure disorder. PSYCH: Denies any depression or suicidal ideation. HEMATOLOGIC: Denies any easy bruising or bleeding. Denies any personal or family history of DVTs or pulmonary emboli. SKIN: No reports of cancer. History of dry skin. PHYSICAL EXAM: VITAL SIGNS: 5 feet 5.5 inches, 367 pounds. BMI 60.3 Vital Signs Temp 98 F 01/15/20 16:04 Pulse 92 01/15/20 16:04 Resp 16 01/15/20 16:04 BP 140/81 01/15/20 16:04 Pulse Ox GENERAL: Well-developed pleasant male in no acute distress. HEENT: No scleral icterus. Extraocular movements grossly intact. Moist buccal mucosa. NECK: Supple without lymphadenopathy. CHEST: Nonlabored respirations with equal bilateral excursions. CARDIOVASCULAR: Regular rate and rhythm. ABDOMEN: Obese, soft, nontender, nondistended. MUSCULOSKELETAL: No clubbing, cyanosis or edema. NEURO: No focal or lateralizing signs. Cranial nerves II through XII grossly within normal limits. PSYCH: Appropriate affect. Alert and oriented to person, place and time. SKIN: Good skin turgor. Well perfused. MEDICAL REPORT: EGD FINDING: Squamocolumnar junction 40 cm from the incisors. Diaphragmatic hiatus at 40 cm. Hill grade 2 lower esophageal valve. LA grade B erosive esophagitis. No active duodenitis. Chronic gastritis [facility] quality scale 2 (1-5) Internal hemorrhoids, grade 2 External hemorrhoids, grade 2 No arteriovenous malformations. No sigmoid diverticulosis Removal of 2 polyps: - Snare polypectomy ascending colon, 5 mm tubulovillous adenoma polyp. - Snare polypectomy 15 cm from the anal verge, 8 mm flat villous adenoma polyp, sigmoid colon No focal colitis. PATHOLOGY: Consistent with chronic gastritis including tubular adenomas of the colon ASSESSMENT: 1. Super morbid obesity, BMI 60.3 2. Hypertension. 3. Glaucoma. 4. Gastroesophageal reflux disease. 5. Obstructive sleep apnea. 6. Osteoarthritis, knees 7. Colon polyps 8. Benign prostatic hypertrophy PLAN: 1. Surgical options including a band, gastric bypass, sleeve gastrectomy were described in detail. Alternatives such as gastric balloon including duodenal switch were described. She is looking into the sleeve gastrectomy. 2. The [place] [facility]ariat[facility] surgical collaborative data and outcomes calculator were described with surgical options. 3. Recommend a bariatric metabolic panel to evaluate for micro- including macronutrient deficiencies. 4. Recommend 12-lead EKG. 5. Dietary surveillance and counseling was reviewed. Increased protein intake over 65 grams daily advised. 6. Will need cardiac risk assessment. 7. Recommend medical risk assessment. 8. Psych assessment per insurance guidelines. 9. Recommend referral to a bariatric dietitian for super morbid obesity. Thank you for this consultation. Past Medical History Past Medical History: Eye Disorder, GERD/Reflux, Skin Disorder, Sleep Apnea/CPAP/BIPAP Additional Past Medical History / Comment(s): arthritis, DRYNESS AND CRACKING TO SKIN ON EMILY HANDS, EARLY GLAUCOMA History of Any Multi-Drug Resistant Organisms: None Reported Past Surgical History: Bladder Surgery, Joint Replacement, Orthopedic Surgery Additional Past Surgical History / Comment(s): elbow, hernia, spot removed from bladder, RT KNEE REPLACEMENT Past Anesthesia/Blood Transfusion Reactions: No Reported Reaction Smoking Status: Former smoker - Past Family History Mother Family Medical History: Cancer Additional Family Medical History / Comment(s): Mother is from lung cancer. She was a smoker. Father Family Medical History: Cancer Additional Family Medical History / Comment(s): Father is from lung cancer. He was a smoker. Surgical - Exam Vital Signs Temp Pulse Resp BP 98 F 92 16 140/81 01/15/20 16:04 01/15/20 16:04 01/15/20 16:04 01/15/20 16:04 Bariatric Checklist Checklist: Plan: Checklist: EGD: 1. Hiatal hernia: 2. H. Pylori: HgbA1c: Vitamin D: Smoking: Former smoker Primary care physician referral: Dr. Murphy Psychiatry clearance: Cardiology clearance: Sleep study: Diet journal: VTE risk score: VTE risk level: Rehab needs at discharge:
== END | disposition home or self-care (01) ==
LOC: BARWHC3 15:10
PROVIDERS: ATTEND Surgery Plastic and Reconstructive Surgery
DX: E66.01 Morbid (severe) obesity due to excess calories (principal); I10 Essential (primary) hypertension; K21.9 Gastro-esophageal reflux disease without esophagitis; G47.33 Obstructive sleep apnea (adult) (pediatric); N40.0 Benign prostatic hyperplasia without lower urinary tract symptoms; M17.0 Bilateral primary osteoarthritis of knee; K63.5 Polyp of colon; H40.9 Unspecified glaucoma; Z68.44 Body mass index [BMI] 60.0-69.9, adult; Z88.0 Allergy status to penicillin; Z88.5 Allergy status to narcotic agent
CPT/HCPCS: 99211

== ENCOUNTER → 2020-01-28 | Outpatient (CLI) | payer MEDICARE ==
[2020-01-29 08:25] VITALS: BMI 60.2
== END | disposition home or self-care (01) ==
LOC: BARWHC3 14:33
PROVIDERS: ATTEND Surgery Plastic and Reconstructive Surgery
DX: E66.01 Morbid (severe) obesity due to excess calories (principal); Z71.3 Dietary counseling and surveillance; Z68.44 Body mass index [BMI] 60.0-69.9, adult
CPT/HCPCS: 97803

== ENCOUNTER → 2020-06-10 | Outpatient (CLI) | payer MEDICARE ==
[2020-06-10 14:20] VITALS: BP 132/85; PULSE 97; RESP 16; TEMP 97.8; BMI 61.2
--- NOTE | 2020-06-10 14:22 | P.PN ---
Subjective Progress Note Date: 06/10/20 DATE: 06/10/2020 CHIEF COMPLAINT: Morbid obesity HISTORY OF PRESENT ILLNESS: Brendan Carballo is a 70-year-old male with lifelong morbid obesity. He has tried multiple options for weight loss without impr ovement. He presents with multiple co-morbidities related to his obesity including obstructive sleep apnea, hypertensive heart disease, and osteoarthritis. He is looking into the sleeve gastrectomy. He was taking iron and had constipation. He loves Dr. Britt. He reports addiction to carbs. At his height of 5 feet 5.5 inches, his ideal body weight is 149 pounds. His present weight is 373 pounds from 367 pounds. He has gained 6 pounds. His body mass index is 61.3. He is 224 pounds overweight. PAST MEDICAL HISTORY: 1. Super morbid obesity, BMI 60.3 2. Hypertension. 3. Glaucoma. 4. Gastroesophageal reflux disease. 5. Obstructive sleep apnea. 6. Osteoarthritis, knees 7. Colon polyps 8. Benign prostatic hypertrophy PAST SURGICAL HISTORY: 1. EGD. 2. Colonoscopy. 3. Reports having a bladder procedure. 4. History of knee replacement. 5. History of hernia repair. 6. Elbow procedure. MEDICATIONS: Home Medications Medication Instructions Recorded Confirmed amLODIPine/VALSARTAN [Exforge 1 tab PO QAM 05/01/14 01/01/20 5-160 MG] Tamsulosin [Flomax] 0.4 mg PO HS 06/20/19 01/01/20 Timolol 0.5% Ophth Soln [Timoptic 1 drop BOTH EYES DAILY 06/20/19 01/01/20 0.5% Ophth Soln] ALLERGIES: 1. CODEINE. 2. PENICILLIN. SOCIAL HISTORY: Remote tobacco user. Also past history of alcohol abuse. FAMILY HISTORY: Pertinent for super morbid obesity. He has a family history of colon cancer in his grandfather. Denies any stomach or esophageal cancer. Parents have lung cancer. Nephew weighed over 400 pounds. REVIEW OF SYSTEMS: CONSTITUTIONAL: At his height of 5 feet 5.5 inches, his ideal body weight is 149 pounds. His present weight is 373 pounds from 367 pounds. He has gained 6 pounds. His body mass index is 61.3. He is 224 pounds overweight. HEENT: Has troubles with vision. Denies any troubles with hearing. Has glaucoma. ENDOCRINE: No reports of blood sugar or glucose intolerance or hypothyroidism. CARDIOVASCULAR: Denies any recent heart attack or chest pain. RESPIRATORY: Has obstructive sleep apnea. Denies any active dyspnea on e xertion. GI: Denies any bright red blood per rectum. Has gastroesophageal reflux disease and colon polyps. : History of bladder tumor status post cystoscopy and removal of bladder tumor. MUSCULOSKELETAL: Osteoarthritis of the knees. Has occasional back pain. NEURO: Denies any stroke or seizure disorder. PSYCH: Denies any depression or suicidal ideation. HEMATOLOGIC: Denies any easy bruising or bleeding. Denies any personal or family history of DVTs or pulmonary emboli. SKIN: No reports of cancer. History of dry skin. PHYSICAL EXAM: VITAL SIGNS: 5 feet 5.5 inches, 373 pounds. BMI 61.3 Vital Signs Temp 97.8 F 06/10/20 14:17 Pulse 97 06/10/20 14:17 Resp 16 06/10/20 14:17 BP 132/85 06/10/20 14:17 Pulse Ox GENERAL: Well-developed pleasant male in no acute distress. HEENT: No scleral icterus. Extraocular movements grossly intact. Moist buccal mucosa. NECK: Supple without lymphadenopathy. CHEST: Nonlabored respirations with equal bilateral excursions. CARDIOVASCULAR: Regular rate and rhythm. ABDOMEN: Obese, soft, nontender, nondistended. MUSCULOSKELETAL: No clubbing, cyanosis or edema. NEURO: No focal or lateralizing signs. Cranial nerves II through XII grossly within normal limits. PSYCH: Appropriate affect. Alert and oriented to person, place and time. SKIN: Good skin turgor. Well perfused. ASSESSMENT: 1. Super morbid obesity, BMI 61.3 2. Hypertension. 3. Glaucoma. 4. Gastroesophageal reflux disease. 5. Obstructive sleep apnea. 6. Osteoarthritis, knees 7. Colon polyps 8. Benign prostatic hypertrophy PLAN: 1. Bariatric options between a sleeve, band and a Robel-en-Y gastric bypass were reviewed in detail. The patient elected for a sleeve gastrectomy. Robotic assisted approach described. 2. The [place] [facility] Data was also reviewed with benefits and risks as described. 3. An 8 page second-generation bariatric consent form was reviewed in detail including potential of bleeding, infection, leaks, adequate weight loss, nutritional deficiencies which the patient demonstrated understanding of the risks. 4. A 2 week high-protein low caloric 800 kcal diet described to address hepatomegaly. 5. Preoperative labs including complete metabolic panel and CBC with type and screen recommended. 6. DVT prophylaxis per [place] [facility] collaborative. 7. Antibiotic prophylaxis. 8. Inpatient hospitalization anticipated for more than 2 nights. 9. All questions and concerns were addressed with the patient. 10. He is elevated risk for complications with body mass index over 60 includi ng with moderate to severe obstructive sleep apnea. 11. Overall, patient has expressed understanding of bariatric care including postoperative diet and commitment of lifestyle. Patient should benefit from surgical intervention for correction of her morbid obesity. Thank you for this consultation. Objective - Vital Signs Vital signs: Vital Signs Temp 97.8 F 06/10/20 14:17 Pulse 97 06/10/20 14:17 Resp 16 06/10/20 14:17 BP 132/85 06/10/20 14:17 Pulse Ox Intake & Output 06/09/20 06/10/20 06/10/20 18:59 06:59 18:59 Weight 169.644 kg - Labs CBC & Chem 7: 06/10/20 15:03 06/10/20 15:03
[2020-06-10 15:40] LABS: Basophils # (A) 0.1 k/uL (0-0.2); Basophils % (A) 1 %; Eosinophils # (A) 0.6 k/uL (0-0.7); Eosinophils % (A) 6 %; HCT 41.4 % (39.0-53.0); HGB 13.2 gm/dL (13.0-17.5); Lymphocytes # (A) 1.3 k/uL (1.0-4.8); Lymphocytes % (A) 13 %; MCH 27.8 pg (25.0-35.0); MCHC 31.8 g/dL (31.0-37.0); MCV 87.4 fL (80.0-100.0); Mean Platelet Volume 6.7; Monocytes # (A) 0.6 k/uL (0-1.0); Monocytes % (A) 5 %; Neutrophils # (A) 7.6 k/uL (1.3-7.7); Neutrophils % (A) 74 %; Platelet Count 256 k/uL (150-450); RBC 4.73 m/uL (4.30-5.90); RDW 15.7 % (11.5-15.5); WBC 10.3 k/uL (3.8-10.6)
[2020-06-11 00:46] LABS: African American GFR (CKD) 78.4 (60.0-200.0); Albumin 4.2 g/dL (3.80-4.90); Albumin/Globulin Ratio 1.68 (1.60-3.17); Anion Gap 12.2 mmol/L (4.00-12.00); BUN/Creat Ratio 18.18 Ratio (12.00-20.00); Carbon Dioxide 27.8 mmol/L (21.6-31.8); Globulin 2.5 g/dL (1.6-3.3); Non-African American GFR(CKD) 67.7 (60.0-200.0); Potassium 4.8 mmol/L (3.5-5.5); Total Bilirubin 0.3 mg/dL (0.2-1.2); Total Protein 6.7 g/dL (6.2-8.2)
== END | disposition home or self-care (01) ==
LOC: BARWHC3 13:37
PROVIDERS: ATTEND Surgery Plastic and Reconstructive Surgery
DX: E66.01 Morbid (severe) obesity due to excess calories (principal); I10 Essential (primary) hypertension; H40.9 Unspecified glaucoma; K21.9 Gastro-esophageal reflux disease without esophagitis; G47.33 Obstructive sleep apnea (adult) (pediatric); M17.0 Bilateral primary osteoarthritis of knee; N40.0 Benign prostatic hyperplasia without lower urinary tract symptoms; Z87.19 Personal history of other diseases of the digestive system; Z88.0 Allergy status to penicillin; Z88.5 Allergy status to narcotic agent; Z79.899 Other long term (current) drug therapy
CPT/HCPCS: 80053; 83540; 85025; 82306; G0463; 99211

== ENCOUNTER 2020-06-29 07:30 | Inpatient (IN) | payer MEDICARE ==
[2020-07-09] MEDS ORDERED: ceFAZolin 3 GM in SODIUM CHLORIDE 0.9% 100 ML IVPB PRN (05:00)
[2020-07-09] MEDS ORDERED: LIDOCAINE 1% (10MG/ML) FOR IV START INTRADERMA PRN (05:58)
[2020-07-09] MEDS ORDERED: HYDROmorphone 0.5 MG/0.5 ML SYRINGE IVP PRN (05:58)
[2020-07-09] MEDS ORDERED: DEXAMETHASONE SOD PHOSPHATE 4 MG/ML 1 ML VIAL IV ONE ×2 (05:58)
[2020-07-09] MEDS ORDERED: ONDANSETRON 4 MG/2 ML VIAL IVP ONE (05:58)
[2020-07-09] MEDS ORDERED: ACETAMINOPHEN TAB 500 MG TAB PO STA (06:19)
[2020-07-09] MEDS ORDERED: PANTOPRAZOLE 40 MG/10 ML VIAL IV PRN (06:19)
[2020-07-09] MEDS ORDERED: CHLORHEXIDINE GLUCONATE 15 ML CUP MUCOUS MEM PRN (06:19)
--- NOTE | 2020-07-09 06:19 | P.GSHP ---
History of Present Illness H&P Date: 07/09/20 CHIEF COMPLAINT: Morbid obesity HISTORY OF PRESENT ILLNESS: Brendan Carballo is a 70-year-old male with lifelong morbid obesity. He has been trying to undergo weight loss surgery for over 6+ years. He has a family members with morbid obesity. He reports previous history of gastroesophageal reflux disease. He reports a strong family history of morbid obesity, where his nephew weighed 400 pounds. He has tried multiple weight loss options in the past, including an Maribel's diet. He had gotten down to 280 pounds. He states that the lowest he has weighed was 185 pounds back in the 1970s, but since quitting smoking his weight has ballooned. As a result of his morbid obesity, he has end-stage osteoarthritis of the knees requiring surgery. He is looking into the sleeve gastrectomy. At his height of 5 feet 5.5 inches, his weight was 367 pounds and his body mass index was 60.3. His ideal body weight is 149 pounds. Today he is 357 pounds. He has lost 10 pounds. He is 208 pounds overweight. PAST MEDICAL HISTORY: 1. Super morbid obesity, BMI 60.3 2. Hypertension. 3. Glaucoma. 4. Gastroesophageal reflux disease. 5. Obstructive sleep apnea. 6. Osteoarthritis, knees 7. Colon polyps 8. Benign prostatic hypertrophy PAST SURGICAL HISTORY: 1. EGD. 2. Colonoscopy. 3. Reports having a bladder procedure. 4. History of knee replacement. 5. History of hernia repair. 6. Elbow procedure. MEDICATIONS: Home Medications Medication Instructions Recorded Confirmed amLODIPine/VALSARTAN [Exforge 1 tab PO QAM 05/01/14 01/01/20 5-160 MG] Tamsulosin [Flomax] 0.4 mg PO HS 06/20/19 01/01/20 Timolol 0.5% Ophth Soln [Timoptic 1 drop BOTH EYES DAILY 06/20/19 01/01/20 0.5% Ophth Soln] ALLERGIES: 1. CODEINE. 2. PENICILLIN. SOCIAL HISTORY: Remote tobacco user. Also past history of alcohol abuse. FAMILY HISTORY: Pertinent for super morbid obesity. He has a family history of colon cancer in his grandfather. Denies any stomach or esophageal cancer. Parents have lung cancer. Nephew weighed over 400 pounds. REVIEW OF SYSTEMS: CONSTITUTIONAL: Denies fevers or chills. HEENT: Has troubles with vision. Denies any troubles with hearing. Has glaucoma. ENDOCRINE: No reports of blood sugar or glucose intolerance or hypothyroidism. CARDIOVASCULAR: Denies any recent heart attack or chest pain. RESPIRATORY: Has obstructive sleep apnea. Denies any active dyspnea on exertion. GI: Denies any bright red blood per rectum. Has gastroesophageal reflux disease and colon polyps. : History of bladder tumor status post cystoscopy and removal of bladder tumor. MUSCULOSKELETAL: Osteoarthritis of the knees. Has occasional back pain. NEURO: Denies any stroke or seizure disorder. PSYCH: Denies any depression or suicidal ideation. HEMATOLOGIC: Denies any easy bruising or bleeding. Denies any personal or family history of DVTs or pulmonary emboli. SKIN: No reports of cancer. History of dry skin. PHYSICAL EXAM: VITAL SIGNS: 5 feet 5.5 inches, 357 pounds. BMI 58.7 GENERAL: Well-developed pleasant male in no acute distress. HEENT: No scleral icterus. Extraocular movements grossly intact. Moist buccal mucosa. NECK: Supple without lymphadenopathy. CHEST: Nonlabored respirations with equal bilateral excursions. CARDIOVASCULAR: Regular rate and rhythm. ABDOMEN: Obese, soft, nontender, nondistended. MUSCULOSKELETAL: No clubbing, cyanosis or edema. NEURO: No focal or lateralizing signs. Cranial nerves II through XII grossly within normal limits. PSYCH: Appropriate affect. Alert and oriented to person, place and time. SKIN: Good skin turgor. Well perfused. ASSESSMENT: 1. Super morbid obesity, BMI 60.3, initial 2. Hypertension. 3. Glaucoma. 4. Gastroesophageal reflux disease. 5. Obstructive sleep apnea. 6. Osteoarthritis, knees 7. Colon polyps 8. Benign prostatic hypertrophy PLAN: 1. Bariatric options between a sleeve, band and a Robel-en-Y gastric bypass were reviewed in detail. The patient elected for a sleeve gastrectomy. Robotic assisted approach described. 2. The [place] [facility] Data was also reviewed with benefits and risks as described. 3. An 8 page second-generation bariatric consent form was reviewed in detail including potential of bleeding, infection, leaks, adequate weight loss, nutritional deficiencies which the patient demonstrated understanding of the risks. 4. A 2 week high-protein low caloric 800 kcal diet described to address hepatomegaly. 5. Preoperative labs including complete metabolic panel and CBC with type and screen recommended. 6. DVT prophylaxis per [place] [facility] collaborative. 7. Antibiotic prophylaxis. 8. Inpatient hospitalization anticipated for more than 2 nights. 9. All questions and concerns were addressed with the patient. 10. She is at elevated risk for perioperative complications for any additional surgeries that may occur within 30 days of her index operation as she is due for surgery of the left shoulder. 11. Overall, patient has expressed understanding of bariatric care including postoperative diet and commitment of lifestyle. Patient should benefit from surgical intervention for correction of his morbid obesity. Past Medical History Past Medical History: Eye Disorder, GERD/Reflux, Skin Disorder, Sleep Apnea/CPAP/BIPAP Additional Past Medical History / Comment(s): arthritis, DRYNESS AND CRACKING TO SKIN ON EMILY HANDS, EARLY GLAUCOMA History of Any Multi-Drug Resistant Organisms: None Reported Past Surgical History: Bladder Surgery, Joint Replacement, Orthopedic Surgery Additional Past Surgical History / Comment(s): elbow, hernia, spot removed from bladder, RT KNEE REPLACEMENT Past Anesthesia/Blood Transfusion Reactions: No Reported Reaction Past Psychological History: No Psychological Hx Reported Additional Psychological History / Comment(s): Pt resides with his spouse. He is independent. Smoking Status: Unknown if ever smoked Past Alcohol Use History: Rare Additional Past Alcohol Use History / Comment(s): Pt started smoking in 1966 and quit in 1976. Past Drug Use History: None Reported - Past Family History Mother Family Medical History: Cancer Additional Family Medical History / Comment(s): Mother is from lung cancer. She was a smoker. Father Family Medical History: Cancer Additional Family Medical History / Comment(s): Father is from lung cancer. He was a smoker. Medications and Allergies Home Medications Medication Instructions Recorded Confirmed Type amLODIPine/VALSARTAN [Exforge 1 tab PO DAILY 05/01/14 07/07/20 History 5-160 MG] Timolol 0.5% Ophth Soln [Timoptic 1 drop BOTH EYES DAILY 06/20/19 07/07/20 History 0.5% Ophth Soln] Olopatadine HCl [Pataday] 1 drop BOTH EYES DIRECTED PRN 06/23/20 07/07/20 History Docusate [Colace] 1 tab PO BID PRN 07/07/20 07/07/20 History Allergies Allergy/AdvReac Type Severity Reaction Status Date / Time codeine Allergy Nausea & Verified 07/07/20 10:16 Vomiting penicillin V Allergy Nausea & Verified 07/07/20 10:16 Vomiting
[2020-07-09] MEDS ORDERED: ENOXAPARIN 40 MG/0.4 ML SYRINGE SQ PRN (07:00)
[2020-07-09] MEDS ORDERED: TAMSULOSIN 0.4 MG CAP.ER.24H PO ONE (07:00)
[2020-07-09] MEDS ORDERED: GABAPENTIN 300 MG CAP PO ONE (07:00)
[2020-07-09] MEDS: LACTATED RINGERS 1,000 ML IV SCH ×2 (10:32→18:08)
[2020-07-09] MEDS: ONDANSETRON 4 MG/2 ML VIAL IVP ONE ×2 (10:33→17:04)
[2020-07-09 11:22] LABS: Anisocytosis Slight; Basophils # (A) 0.1 k/uL (0-0.2); Basophils % (A) 1 %; Eosinophils # (A) 0.4 k/uL (0-0.7); Eosinophils % (A) 5 %; HCT 42.1 % (39.0-53.0); HGB 13.9 gm/dL (13.0-17.5); Lymphocytes # (A) 1.1 k/uL (1.0-4.8); Lymphocytes % (A) 14 %; MCH 28.4 pg (25.0-35.0); MCV 85.9 fL (80.0-100.0); Mean Platelet Volume 7.4; Monocytes # (A) 0.6 k/uL (0-1.0); Monocytes % (A) 7 %; Neutrophils # (A) 5.5 k/uL (1.3-7.7); Neutrophils % (A) 71 %; Platelet Count 271 k/uL (150-450); RDW 16.2 % (11.5-15.5); WBC 7.8 k/uL (3.8-10.6)
[2020-07-09 11:24] LABS: ALT 34 U/L (4-49); AST 38 U/L (17-59); African American GFR (CKD) >90 (>60 ml/min/1.73 sqM); Albumin 4.3 g/dL (3.5-5.0); Alkaline Phosphatase 89 U/L (38-126); Anion Gap 7 mmol/L; Blood Urea Nitrogen 16 mg/dL (9-20); Calcium 9.9 mg/dL (8.4-10.2); Carbon Dioxide 27 mmol/L (22-30); Chloride 106 mmol/L (98-107); Glucose 105 mg/dL (74-99); Non-African American GFR(CKD) 79 (>60 ml/min/1.73 sqM); Potassium 4.4 mmol/L (3.5-5.1); Sodium 140 mmol/L (137-145); Total Bilirubin 0.7 mg/dL (0.2-1.3); Total Protein 7.5 g/dL (6.3-8.2)
[2020-07-09] MEDS ORDERED: LIDOCAINE 0.5%-EPI 1:200,000 50 ML VIAL SQ ONE ×2 (14:42→15:09)
[2020-07-09] MEDS ORDERED: LACTATED RINGERS 1,000 ML IV ONE (15:30)
[2020-07-09] MEDS: HYDROmorphone 0.5 MG/0.5 ML SYRINGE IVP PRN ×2 (17:04→17:09)
[2020-07-09] MEDS ORDERED: diphenhydrAMINE 50 MG/ML 1 ML VIAL IVP PRN (17:19)
[2020-07-09] MEDS ORDERED: NALOXONE 0.4 MG/ML 1 ML VIAL IV PRN (17:19)
[2020-07-09] MEDS ORDERED: KETOTIFEN 0.025% OPHTH DROPS 5 ML BTL BOTH EYES PRN (17:21)
[2020-07-09] MEDS ORDERED: DOCUSATE 100 MG CAP PO PRN (17:21)
--- NOTE | 2020-07-09 17:26 | P.OP ---
Date of Procedure: 07/09/20 Description of Procedure: SURGEON: EM LEIJA MD PREOPERATIVE DIAGNOSES: 1. Super morbid obesity, BMI 60.3, initial 2. Hypertension. 3. Glaucoma. 4. Gastroesophageal reflux disease. 5. Obstructive sleep apnea. 6. Osteoarthritis, knees 7. Colon polyps 8. Benign prostatic hypertrophy POSTOPERATIVE DIAGNOSES: 1. Super morbid obesity, BMI 60.3, initial 2. Hypertension. 3. Glaucoma. 4. Gastroesophageal reflux disease. 5. Obstructive sleep apnea. 6. Osteoarthritis, knees 7. Colon polyps 8. Benign prostatic hypertrophy OPERATION: 1. Robotic assisted daVinci Xi laparoscopic sleeve gastrectomy with 40-Togolese bougie, multiport. 2. Intraoperative esophagogastroduodenoscopy. ANESTHESIA: Gen. local anesthetic ESTIMATED BLOOD LOSS: 5 mL SPECIMENS REMOVED: Sleeve gastrectomy COMPLICATIONS: None. INDICATIONS: Brendan Carballo is a 70-year-old male with lifelong morbid obesity. As a result of his morbid obesity, he has end-stage osteoarthritis of the knees requiring surgery. He is looking into the sleeve gastrectomy. At his height of 5 feet 5.5 inches, his weight was 367 pounds and his body mass index was 60.3. His ideal body weight is 149 pounds. Today he is 357 pounds. He has lost 10 pounds. He is 208 pounds overweight. All surgical options for morbid obesity had been described using the [place] bariatric surgery collaborative comorbidity resolution including complication risk score. A second-generation bariatric consent form was described in detail including the possibility of protein malnutrition, leaks, gastric stricture, venous thrombosis, gastroesophageal reflux disease, need for further surgery for which he demonstrated understanding. Benefits and risks of the procedure were described at length. Informed consent was obtained. DESCRIPTION: The patient was brought into the operating room theater. Preoperatively he had received Lovenox subcutaneously for DVT prophylaxis. Additionally he had Peridex oral solution as an oral decontaminant. After general induction, the abdomen was prepped and draped in standard sterile fashion. An Ioban draping was placed along the abdomen. A robotic da Hernandez Xi system was prepped and primed. At 15 cm from the xiphoid, proposed port sites were marked with indelible marker along the anterior axillary line bilaterally, mid axillary line bilaterally with each ports were marked 10 to 15 cm from each other. The assistant manager/embalmer port was marked along the left lateral abdominal wall. The robotic stapler port was marked for the right midclavicular line. A 5 mm 0 degrees laparoscopic trocar entry was performed along the left upper quadrant. The abdomen was insufflated to 15 mmHg pressure he tolerated well. Diagnostic laparoscopy demonstrated no injury to bowel, viscera, or mesentery. The liver surface was unremarkable without evidence of hepatomegaly or fatty liver disease. No injury had occurred to the small bowel or viscera. Along the hiatus no recurrent hiatal hernia was found. A 8 mm port was placed along the right upper abdominal wall after exchanging the 5 mm port. A separate 8 mm port was placed along the left lateral abdominal wall. Please note that the ports were placed at least 20 cm away from the target anatomy. Care was taken to check each robotic arms were safely away from collision with the bed or the patient. At the epigastrium, a medium sized Mario liver retractor was placed under direct visualization with the [employer] Sales Supervisor placed under the right shoulder of the patient. Next, 12-mm robot stapler port was placed along the right upper quadrant. The camera 8-mm port was maintained along the epigastrium. The patient was repositioned in reverse Trendelenburg position at 16-degrees after lowering the bed. The robot was docked along the left side of the patient. Using a grasper for arm 4, a vessel sealer for arm 3, including grasper for arm 1, the robotic system was docked and primed as described. Instruments were interchanged by the assistant manager/embalmer for stapler loads. The camera was placed at 30-degrees down. I had sat at the console. The pylorus was identified and 6 cm proximally along the greater curvature of the stomach, the short gastrics were mobilized upwards to the angle of His using a vessel sealer. Hemostasis was excellent during this portion of the procedure. Next, the upper pole of the stomach was adherent to the left mo, which was gently dissected free using atraumatic grasper. The nursing harbor engineer placed a 40-Togolese blunted tip bougie into the stomach. Robotic stapler black loads 60 mm x 2 followed by green 60 mm x 3 and blue 60 mm x 2 were used to create the sleeve. Initial firing was across the antrum of the stomach towards the angle of His. The staple line was completely hemostatic and linear without corkscrewing. Hemostasis was excellent. The space from the angularis incisura of the sleeve was approximately 4 cm. I then went to the head of the bed to perform the intraoperative esophagogastroduodenoscopy leak test. The upper pole of the stomach was bathed using normal saline solution. The scope was withdrawn with careful inspection along the staple line for which no leaks were found along the entire length. Additionally, the sleeve was completely hemostatic without any encroachment along the angularis incisura. Its topology was a soft "J". No stricture was encountered upon placement of the scope. The GI tract was desufflated. The patient tolerated this portion of the procedure well. The scope was completely withdrawn. The robot was undocked. I then rescrubbed into case, whereby the irrigation fluid was aspirated from the abdominal cavity. Tisseel fibrin sealant was placed along the entire staple length. Once dried the Mario liver retractor was removed. Attention was now brought to removal of the specimen. The distal end of the sleeve gastrectomy specimen was brought out through the 12 mm port at the left upper quadrant. The specimen was gently removed en total, corresponding to 25 cm x 4.5 cm sleeve gastrectomy specimen. No contamination had occurred during this process. All instruments and pneumoperitoneum including irrigation fluid was removed from the abdominal cavity. The 12 mm port site was irrigated with warm normal saline solution and diluted hydron peroxide. The 12-mm port site was reapproximated using 0 Vicryl and Rishabh-Soniya of the left upper quadrant. The final incisions were closed using subcuticular interrupted suture of 4-0 Monocryl. Dermabond was applied to the skin once the skin had been cleansed. OptiFoam dressing was placed along the stomach extraction site. At the end of the procedure, needle, sponge, and instrument count was verified correct by the rn surgical pcu. The patient was taken to the postanesthesia care unit in stable condition. He had tolerated the procedure well. Intraoperative films and findings were reviewed with the patient's family. FINDINGS: 1. Negative intraoperative esophagogastrojejunoscopy leak test. 2. No large hiatus hernia. 3. Total of 7 staplers used including 2 - 60 mm black and 3 - 60 mm green, 2 - 60 mm blue robot rosalie used to create the gastric sleeve. 4. Sleeve gastrectomy 25 x 4.5 cm
[2020-07-09] MEDS: KETOROLAC 15 MG/ML 1 ML VIAL IVP SCH (18:30)
[2020-07-09] MEDS: SIMETHICONE 40 MG/0.6 ML DROPS 2,000 MG/30 ML BOTTLE PO SCH (18:30)
[2020-07-09] MEDS: ONDANSETRON 4 MG/2 ML VIAL IVP SCH (18:30)
[2020-07-09] MEDS: ALBUTEROL NEBULIZED 2.5 MG/3 ML INHALATION SCH (20:54)
[2020-07-09] MEDS: ACETAMINOPHEN IV (For NPO) 1,000 MG in EMPTY BAG 1 BAG IVPB SCH (21:08)
[2020-07-09] MEDS: 0.9% NACL WITH KCL 20 MEQ/L 1,000 ML IV SCH (21:09)
[2020-07-09] MEDS ORDERED: ceFAZolin 3 GM in SODIUM CHLORIDE 0.9% 100 ML IVPB SCH (23:00)
[2020-07-10] MEDS: KETOROLAC 15 MG/ML 1 ML VIAL IVP SCH ×3 (00:41→11:29)
[2020-07-10] MEDS: ONDANSETRON 4 MG/2 ML VIAL IVP SCH ×3 (00:41→13:22)
[2020-07-10] MEDS: SIMETHICONE 40 MG/0.6 ML DROPS 2,000 MG/30 ML BOTTLE PO SCH ×3 (00:41→12:40)
[2020-07-10] MEDS: 0.9% NACL WITH KCL 20 MEQ/L 1,000 ML IV SCH (02:41)
[2020-07-10] MEDS: ACETAMINOPHEN IV (For NPO) 1,000 MG in EMPTY BAG 1 BAG IVPB SCH ×3 (02:41→15:00)
[2020-07-10 06:57] LABS: Anisocytosis Slight; Basophils % (A) 0 %; Eosinophils % (A) 0 %; HCT 37.8 % (39.0-53.0); HGB 12.3 gm/dL (13.0-17.5); Lymphocytes # (A) 0.7 k/uL (1.0-4.8); Lymphocytes % (A) 7 %; MCH 28.4 pg (25.0-35.0); MCHC 32.7 g/dL (31.0-37.0); MCV 87.1 fL (80.0-100.0); Mean Platelet Volume 7.1; Monocytes # (A) 0.5 k/uL (0-1.0); Monocytes % (A) 5 %; Neutrophils # (A) 8.3 k/uL (1.3-7.7); Neutrophils % (A) 87 %; Platelet Count 228 k/uL (150-450); RBC 4.34 m/uL (4.30-5.90); RDW 16.1 % (11.5-15.5); WBC 9.6 k/uL (3.8-10.6)
[2020-07-10] MEDS: LACTATED RINGERS 1,000 ML IV SCH ×2 (07:25→07:26)
[2020-07-10 07:44] VITALS: TEMP 97.9
[2020-07-10] MEDS ORDERED: VALSARTAN 160 MG TAB PO SCH (09:00)
[2020-07-10] MEDS ORDERED: TIMOLOL 0.5% OPHTH DROPS 5 ML BTL BOTH EYES SCH (09:00)
[2020-07-10] MEDS ORDERED: ENOXAPARIN 40 MG/0.4 ML SYRINGE SQ SCH (09:00)
[2020-07-10] MEDS ORDERED: PANTOPRAZOLE 40 MG/10 ML VIAL IV SCH (09:00)
[2020-07-10] MEDS ORDERED: TAMSULOSIN 0.4 MG CAP.ER.24H PO SCH (09:00)
[2020-07-10] MEDS ORDERED: amLODIPine 5 MG TAB PO SCH (09:00)
[2020-07-10] MEDS: ALBUTEROL NEBULIZED 2.5 MG/3 ML INHALATION SCH ×3 (09:30→15:48)
[2020-07-10 10:08] LABS: Anion Gap 7.9 mmol/L (4.00-12.00); Calcium 9.1 mg/dL (8.7-10.3); Carbon Dioxide 26.1 mmol/L (21.6-31.8); Magnesium 1.9 mg/dL (1.5-2.4); Non-African American GFR(CKD) 75.9 (60.0-200.0); Phosphorus 3.2 mg/dL (2.4-5.1); Potassium 4.6 mmol/L (3.5-5.5)
--- NOTE | 2020-07-10 10:13 | FL ---
EXAMINATION TYPE: FL UGI DATE OF EXAM: 07/10/2020 COMPARISON: None HISTORY: Postop gastric sleeve TECHNIQUE: A single contrast UGI study is performed. FINDINGS: Contrast passes from the distal esophagus through the gastric sleeve with mild hesitancy. N o extravasation of contrast is evident. No free air is noted during this examination. Overhead radiographs were obtained which are unremarkable. IMPRESSIONS: 1. Normal post gastric sleeve without obstruction or hesitancy. No extravasation.
[2020-07-10] MEDS ORDERED: MAGNESIUM SULFATE-D5W PMX 1 GM in DEXTROSE/WATER 1 100ML.BAG IVPB ONE (10:39)
[2020-07-10] MEDS ORDERED: SODIUM CHLORIDE 0.9% 2,000 ML IV ONE (10:41)
[2020-07-10] MEDS ORDERED: DEXAMETHASONE SOD PHOSPHATE 10 MG/ML 1 ML VIAL IV STA (10:41)
[2020-07-10 14:14] VITALS: BP 162/75; PULSE 69; RESP 18
[2020-07-10 14:27] VITALS: BMI 55.3
--- NOTE | 2020-07-10 15:31 | P.DS ---
Providers Date of admission: 07/09/20 09:41 Expected date of discharge: 07/10/20 Attending physician: Aliza Haddad Primary care physician: Damian Blackwood [facility] Course: Discharge diagnosis 1. Super morbid obesity, BMI 60.3, initial 2. Hypertension. 3. Glaucoma. 4. Gastroesophageal reflux disease. 5. Obstructive sleep apnea. 6. Osteoarthritis, knees 7. Colon polyps 8. Benign prostatic hypertrophy Hospital course This is a 70-year-old male with a known history of lifelong morbid obesity. As a result of his morbid obesity, he has end-stage osteoarthritis of the knees requiring surgery. Patient is status post Robotic assisted daVinci Xi laparoscopic sleeve gastrectomy and Intraoperative esophagogastroduodenoscopy. Patient has tolerated surgery well. Pain is controlled. He is tolerating diet. He is passing gas. He is up and ambulating. Upper GI shows normal post gastric sleeve without obstruction or hesitancy. No extravasation. Patient afebrile. He is stable for discharge. Physician Medical Sales Specialist note has been reviewed by physician. Signing provider agrees with the documented findings, assessment, and plan of care. Patient Condition at Discharge: Stable Plan - Discharge Summary Discharge Rx Participant: No New Discharge Prescriptions: New bisacodyL [Dulcolax] 5 mg PO DAILY PRN #10 tablet. PRN Reason: Constipation Simethicone 40 mg/0.6 ml Drops [Mylicon Drops] 40 mg PO PCHS PRN #30 ml PRN Reason: Gas Omeprazole [PriLOSEC] 40 mg PO DAILY #30 capsule. Acetaminophen Tab [Tylenol Tab] 1,000 mg PO Q6HR PRN #20 tablet PRN Reason: Pain Ondansetron Odt [Zofran Odt] 4 mg PO Q8HR PRN #9 tab PRN Reason: Nausea Continue amLODIPine/VALSARTAN [Exforge 5-160 MG] 1 tab PO DAILY Timolol 0.5% Ophth Soln [Timoptic 0.5% Ophth Soln] 1 drop BOTH EYES DAILY Olopatadine HCl [Pataday] 1 drop BOTH EYES DIRECTED PRN PRN Reason: eye fatigue Tamsulosin HCl [Flomax] 0.4 mg PO DAILY Discontinued Docusate [Colace] 1 tab PO BID PRN PRN Reason: Constipation Discharge Medication List amLODIPine/VALSARTAN [Exforge 5-160 MG] 1 tab PO DAILY 05/01/14 [History] Timolol 0.5% Ophth Soln [Timoptic 0.5% Ophth Soln] 1 drop BOTH EYES DAILY 06/20/19 [History] Olopatadine HCl [Pataday] 1 drop BOTH EYES DIRECTED PRN 06/23/20 [History] Tamsulosin HCl [Flomax] 0.4 mg PO DAILY 07/09/20 [History] Acetaminophen Tab [Tylenol Tab] 1,000 mg PO Q6HR PRN #20 tablet 07/10/20 [Rx] Omeprazole [PriLOSEC] 40 mg PO DAILY #30 capsule. 07/10/20 [Rx] Ondansetron Odt [Zofran Odt] 4 mg PO Q8HR PRN #9 tab 07/10/20 [Rx] Simethicone 40 mg/0.6 ml Drops [Mylicon Drops] 40 mg PO PCHS PRN #30 ml 07/10/20 [Rx] bisacodyL [Dulcolax] 5 mg PO DAILY PRN #10 tablet. 07/10/20 [Rx] [place] [facility]Ref[place] [facility] [place] [place] [facility] [place] Patient Instructions/Handouts: Nutrition after Bariatric Surgery (DC), Nutrition after Bariatric Surgery (GEN) Activity/Diet/Wound Care/Special Instructions: Wear abdominal binder at all times for comfort. No lifting over 4 pounds in 4 weeks until Jul 31. November shower. No bath tub soaks for two weeks until Jul 23 Avoid steak, tough meats and seeds such as raspberry seeds. Use ice along incisions for the today to prevent swelling. No straws or carbonated beverages Cut or crush all pills to the size smaller than a tic tac Discharge Disposition: HOME SELF-CARE
[2020-07-11] MEDS ORDERED: bisacodyL 5 MG TABLET.DR PO PRN (08:00)
== END 2020-07-10 16:58 | disposition home or self-care (01) | DRG 621 ==
LOC: 2ORMAIN 07-09 09:41 → 4SSUR 07-09 17:19
PROVIDERS: ADMIT Surgery Plastic and Reconstructive Surgery; ATTEND Surgery Plastic and Reconstructive Surgery
PROC: 0DB64Z3 Excision of Stomach, Percutaneous Endoscopic Approach, Vertical (ICD-10-PCS; principal; 2020-07-09 11:30)
PROC: 0DJ08ZZ Inspection of Upper Intestinal Tract, Via Natural or Artificial Opening Endoscopic (ICD-10-PCS; principal; 2020-07-09 11:30)
PROC: 8E0W8CZ Robotic Assisted Procedure of Trunk Region, Via Natural or Artificial Opening Endoscopic (ICD-10-PCS; principal; 2020-07-09 11:30)
DX: E66.01 Morbid (severe) obesity due to excess calories (principal); G47.33 Obstructive sleep apnea (adult) (pediatric); H40.9 Unspecified glaucoma; I10 Essential (primary) hypertension; K21.9 Gastro-esophageal reflux disease without esophagitis; K63.5 Polyp of colon; M17.0 Bilateral primary osteoarthritis of knee; N40.0 Benign prostatic hyperplasia without lower urinary tract symptoms; Z68.44 Body mass index [BMI] 60.0-69.9, adult; Z80.0 Family history of malignant neoplasm of digestive organs; Z80.1 Family history of malignant neoplasm of trachea, bronchus and lung; Z87.891 Personal history of nicotine dependence; Z96.651 Presence of right artificial knee joint; F10.11 Alcohol abuse, in remission; Z79.899 Other long term (current) drug therapy; Z88.5 Allergy status to narcotic agent; Z88.0 Allergy status to penicillin
CPT/HCPCS: 74240; 80051; 80053; 82310; 82565; 83735; 84100; 84484; 84520; 85025; 86850; 86900; 86901; 93005; 94640; 94760; 94762

== ENCOUNTER → 2020-06-30 | Outpatient (CLI) | payer MEDICARE ==
[2020-06-30 15:11] LABS: Basophils % (A) 0 %; Eosinophils # (A) 0.4 k/uL (0-0.7); Eosinophils % (A) 5 %; HCT 39.5 % (39.0-53.0); HGB 12.5 gm/dL (13.0-17.5); Hypochromasia Slight; Lymphocytes # (A) 1.1 k/uL (1.0-4.8); Lymphocytes % (A) 12 %; MCH 27.4 pg (25.0-35.0); MCHC 31.6 g/dL (31.0-37.0); MCV 86.5 fL (80.0-100.0); Mean Platelet Volume 6.7; Monocytes # (A) 0.6 k/uL (0-1.0); Monocytes % (A) 7 %; Neutrophils # (A) 6.7 k/uL (1.3-7.7); Neutrophils % (A) 75 %; Platelet Count 240 k/uL (150-450); RBC 4.56 m/uL (4.30-5.90); WBC 8.9 k/uL (3.8-10.6)
== END | disposition home or self-care (01) ==
LOC: LABPAT 13:58
PROVIDERS: ATTEND Surgery Plastic and Reconstructive Surgery
DX: Z01.818 Encounter for other preprocedural examination (principal)
CPT/HCPCS: 36415; 85025

== ENCOUNTER → 2020-07-15 | Outpatient (CLI) | payer MEDICARE ==
[2020-07-15 13:42] VITALS: BP 137/80; PULSE 96; RESP 20; TEMP 98; BMI 56.9
--- NOTE | 2020-07-15 14:02 | P.PN ---
Subjective Progress Note Date: 07/15/20 He is s/p sleeve gastrectomy. He is adjusting his medication. He is passing flatus. Dressing removed. No fevers or chills. He is still on blood pressure medications. He reports mild vertigo with getting up too fast. No dysphagia. He is on protein shakes. He is not taking his Omeprazole. He has lost over 50 pounds in months. He reports dizziness. Objective - Vital Signs Vital signs: Vital Signs Temp 98.0 F 07/15/20 13:35 Pulse 96 07/15/20 13:35 Resp 20 07/15/20 13:35 BP 137/80 07/15/20 13:35 Pulse Ox 95 07/15/20 13:35 Intake & Output 07/14/20 07/15/20 07/15/20 18:59 06:59 18:59 Weight 157.533 kg
== END | disposition home or self-care (01) ==
LOC: BARWHC3 13:12
PROVIDERS: ATTEND Surgery Plastic and Reconstructive Surgery
DX: Z48.815 Encounter for surgical aftercare following surgery on the digestive system (principal); Z98.84 Bariatric surgery status
CPT/HCPCS: 99211

== ENCOUNTER → 2020-08-12 | Outpatient (CLI) | payer MEDICARE ==
[2020-08-12 13:16] LABS: Anisocytosis Slight; HCT 43.6 % (39.0-53.0); HGB 14.4 gm/dL (13.0-17.5); Hypochromasia Slight; MCH 29.9 pg (25.0-35.0); MCHC 32.9 g/dL (31.0-37.0); MCV 90.9 fL (80.0-100.0); Platelet Count 214 k/uL (150-450); RDW 16.4 % (11.5-15.5); WBC 6.4 k/uL (3.8-10.6)
[2020-08-12 21:02] LABS: % Iron Saturation 15.94 (15.00-50.00); Albumin 4.3 g/dL (3.80-4.90); Albumin/Globulin Ratio 2.05 (1.60-3.17); Anion Gap 11.8 mmol/L (4.00-12.00); Calcium 9.6 mg/dL (8.7-10.3); Carbon Dioxide 28.2 mmol/L (21.6-31.8); Chol/HDL Ratio 4.25; Globulin 2.1 g/dL (1.6-3.3); LDL Cholesterol,Calculated 86.8 mg/dL (0.0-131.0); Magnesium 1.8 mg/dL (1.5-2.4); Non-African American GFR(CKD) 75.9 (60.0-200.0); Phosphorus 2.9 mg/dL (2.4-5.1); Potassium 4.4 mmol/L (3.5-5.5); Total Bilirubin 0.5 mg/dL (0.3-1.2); Total Protein 6.4 g/dL (6.2-8.2); VLDL Calculation 30.2 mg/dL (5.00-40.00)
[2020-08-12 21:12] LABS: Folate, Serum 9.2 ng/mL
[2020-08-12 21:20] LABS: Ferritin 503.1 ng/mL (22.0-322.0)
[2020-08-12 23:49] LABS: INR 1.02 (0.90-1.11); Partial Thromboplastin Time 30.9 sec (23.5-31.0)
[2020-08-13 13:01] LABS: Zinc, Serum 92 ug/dL (60-130)
[2020-08-14 06:54] LABS: Vitamin A 32 ug/dL (38-106)
[2020-08-14 07:22] LABS: Vit B1(Thiamine) 74 ug/L (38-122)
== END | disposition home or self-care (01) ==
LOC: LABWHC1 12:04
PROVIDERS: ATTEND Surgery Plastic and Reconstructive Surgery
DX: E89.1 Postprocedural hypoinsulinemia (principal); E66.01 Morbid (severe) obesity due to excess calories; E55.9 Vitamin D deficiency, unspecified; D50.8 Other iron deficiency anemias; K90.89 Other intestinal malabsorption; K74.1 Hepatic sclerosis; K50.90 Crohn's disease, unspecified, without complications; N19 Unspecified kidney failure
CPT/HCPCS: 36415; 80053; 80061; 82306; 82525; 82607; 82728; 82746; 83036; 83540; 83550; 83735; 83970; 84100; 84134; 84255; 84425; 84443; 84590; 84630; 85027; 85610; 85730

== ENCOUNTER → 2020-08-12 | Outpatient (CLI) | payer MEDICARE ==
[2020-08-12 13:07] VITALS: BP 151/88; PULSE 94; RESP 18; TEMP 98.9; BMI 55.8
--- NOTE | 2020-08-12 13:29 | P.PN ---
Subjective Progress Note Date: 08/12/20 DATE: 08/12/2020 CHIEF COMPLAINT: Status post sleeve gastrectomy HISTORY OF PRESENT ILLNESS: Brendan Carballo is a 70-year-old male status post sleeve gastrectomy 07/09/2020. He is 1 month post op. He has lost 30 pounds since surgery. He reports he hates not eating much. He feels hungry all the time. He is preparing his own protein shakes but not eating adequate protein, less than 50 grams daily. He reports trouble eating chicken and beef. He has trouble with textured foods. His bowel movements have changed from constipation to diarrhea. He is not drinking enough fluids. Per discussion with dietitian, he is non-compliant with bariatric diet eating muffins, cakes, snacks. At his height of 5 feet 5.5 inches, his ideal body weight is 149 pounds. His highest weight is 373 pounds, BMI 61.3. He comes in today 340 pounds from 373 pounds, 1 month. He has lost 33 pounds in 1 month. Lifetime weight loss is 33 pounds. Lifetime percent excess weight loss is 15%. His body mass index is 55.9. He is 191 pounds overweight. PHYSICAL EXAM: VITAL SIGNS: 5 feet 5.5 inches, 340 pounds. BMI 55.9 Vital Signs Temp 98.9 F 08/12/20 13:04 Pulse 94 08/12/20 13:04 Resp 18 08/12/20 13:04 BP 151/88 08/12/20 13:04 Pulse Ox Intake & Output 08/12/20 08/12/20 08/13/20 06:59 18:59 06:59 Weight 154.675 kg GENERAL: Well-developed pleasant male in no acute distress. HEENT: No scleral icterus. Extraocular movements grossly intact. Moist buccal mucosa. NECK: Supple without lymphadenopathy. CHEST: Nonlabored respirations with equal bilateral excursions. CARDIOVASCULAR: Regular rate and rhythm. ABDOMEN: Obese, soft, nontender, nondistended. MUSCULOSKELETAL: No clubbing, cyanosis or edema. NEURO: No focal or lateralizing signs. Cranial nerves II through XII grossly within normal limits. PSYCH: Appropriate affect. Alert and oriented to person, place and time. SKIN: Good skin turgor. Well perfused. ASSESSMENT: 1. Super morbid obesity due to excess calories, BMI 61.3 to 55.9 2. Hypertension. 3. Glaucoma. 4. Gastroesophageal reflux disease. 5. Obstructive sleep apnea. 6. Osteoarthritis, knees 7. Colon polyps 8. Benign prostatic hypertrophy 9. Status post sleeve gastrectomy 10. Non-compliance to bariatric diet. PLAN: 1. Compliance to dietary requirements advised with protein intake 75 grams daily. 2. Recommend bariatric labs. 3. Follow up 3 months post op Objective - Vital Signs Vital signs: Vital Signs Temp 98.9 F 08/12/20 13:04 Pulse 94 08/12/20 13:04 Resp 18 08/12/20 13:04 BP 151/88 08/12/20 13:04 Pulse Ox Intake & Output 08/11/20 08/12/20 08/12/20 18:59 06:59 18:59 Weight 154.675 kg
== END | disposition home or self-care (01) ==
LOC: BARWHC3 12:00
PROVIDERS: ATTEND Surgery Plastic and Reconstructive Surgery
DX: E66.01 Morbid (severe) obesity due to excess calories (principal); Z68.43 Body mass index [BMI] 50.0-59.9, adult; I10 Essential (primary) hypertension; H40.9 Unspecified glaucoma; K21.9 Gastro-esophageal reflux disease without esophagitis; G47.33 Obstructive sleep apnea (adult) (pediatric); M17.0 Bilateral primary osteoarthritis of knee; K63.5 Polyp of colon; N40.0 Benign prostatic hyperplasia without lower urinary tract symptoms; Z98.84 Bariatric surgery status; Z91.19 Patient's noncompliance with other medical treatment and regimen; Z71.3 Dietary counseling and surveillance
CPT/HCPCS: 97803; G0463; 99211

== ENCOUNTER → 2020-10-14 | Outpatient (CLI) | payer MEDICARE ==
[2020-10-14 12:55] VITALS: BP 165/68; PULSE 96; TEMP 97.9; BMI 53.6
--- NOTE | 2020-10-14 13:49 | P.PN ---
Subjective Progress Note Date: 10/14/20 He comes in with trouble changes with is bowel habits. He reports constant epigastric pain. He reports just starting his fitbit. He has been non-compliant. He reports he is down 1 pants size. He is not taking his omeprazole and has been resistant to education. He does better with cold beverages. Needs blood work. Compliance advised. May need repeat esophagram. Objective - Vital Signs Vital signs: Vital Signs Temp 97.9 F 10/14/20 12:53 Pulse 96 10/14/20 12:53 Resp BP 165/68 10/14/20 12:53 Pulse Ox Intake & Output 10/13/20 10/14/20 10/14/20 18:59 06:59 18:59 Weight 148.325 kg
== END ==
LOC: BARWHC3 12:23
PROVIDERS: ATTEND Surgery Plastic and Reconstructive Surgery
DX: E66.01 Morbid (severe) obesity due to excess calories (principal); Z71.3 Dietary counseling and surveillance; Z87.891 Personal history of nicotine dependence; Z68.43 Body mass index [BMI] 50.0-59.9, adult
CPT/HCPCS: 97803; G0463; 99211

== ENCOUNTER → 2021-01-13 | Outpatient (CLI) | payer MEDICARE ==
[2021-01-13 13:38] VITALS: BP 134/84; PULSE 71; RESP 16; TEMP 98.5; BMI 50.8
--- NOTE | 2021-01-13 14:31 | P.PN ---
Subjective Progress Note Date: 01/13/21 DATE: 01/13/2021 CHIEF COMPLAINT: Status post sleeve gastrectomy HISTORY OF PRESENT ILLNESS: Brendan Carballo is a 70-year-old male status post sleeve gastrectomy 07/09/2020. He is over 6 months out. He comes in with some weight loss. He has dizziness. He reports irregular bowel habits. He reports not being on CPAP machine. He is unhappy with his weight loss. He reports being hungry all the time. He reports no further craving for sweets. He reports not eating protein cause he does not like eating foods. He is a pickey eater. He reports not eating breads. He has troubles eating beef and textured foods. He presents for weight loss management. At his height of 5 feet 5.5 inches, his ideal body weight is 149 pounds. His highest weight is 373 pounds, BMI 61.3. He comes in today 309 pounds from 326 pounds, 3 months ago. He has lost 17 pounds in 3 months. Lifetime weight loss is 64 pounds. Lifetime percent excess weight loss is 28 %. His body mass index is 50.8. He is 160 pounds overweight. PAST MEDICAL HISTORY: 1. Super morbid obesity, BMI 60.3 2. Hypertension. 3. Glaucoma. 4. Gastroesophageal reflux disease. 5. Obstructive sleep apnea. 6. Osteoarthritis, knees 7. Colon polyps 8. Benign prostatic hypertrophy PAST SURGICAL HISTORY: 1. EGD. 2. Colonoscopy. 3. Reports having a bladder procedure. 4. History of knee replacement. 5. History of hernia repair. 6. Elbow procedure. 7. Sleeve gastrectomy MEDICATIONS: Home Medications Medication Instructions Recorded Confirmed amLODIPine/VALSARTAN [Exforge 1 tab PO DAILY 05/01/14 01/13/21 5-160 MG] Timolol 0.5% Ophth Soln [Timoptic 1 drop BOTH EYES DAILY 06/20/19 01/13/21 0.5% Ophth Soln] Olopatadine HCl [Pataday Twice 1 drop BOTH EYES DIRECTED PRN 06/23/20 01/13/21 Daily Relief] Tamsulosin HCl [Flomax] 0.4 mg PO DAILY 07/09/20 01/13/21 Previous Rx's Medication Instructions Recorded Acetaminophen Tab [Tylenol Tab] 1,000 mg PO Q6HR PRN #20 tablet 07/10/20 Omeprazole [PriLOSEC] 40 mg PO DAILY #30 capsule. 07/10/20 ALLERGIES: Allergies Allergy/AdvReac Type Severity Reaction Status Date / Time codeine Allergy Nausea & Verified 01/13/21 13:46 Vomiting penicillin V Allergy Nausea & Verified 01/13/21 13:46 Vomiting SOCIAL HISTORY: Remote tobacco user. Also past history of alcohol abuse. FAMILY HISTORY: Pertinent for super morbid obesity. He has a family history of colon cancer in his grandfather. Denies any stomach or esophageal cancer. Parents have lung cancer. Nephew weighed over 400 pounds. REVIEW OF SYSTEMS: CONSTITUTIONAL: Denies fevers or chills. At his height of 5 feet 5.5 inches, his ideal body weight is 149 pounds. His highest weight is 373 pounds, BMI 61.3. He comes in today 309 pounds from 326 pounds, 3 months ago. He has lost 17 pounds in 3 months. Lifetime weight loss is 64 pounds. Lifetime percent excess weight loss is 28 %. His body mass index is 50.8. He is 160 pounds overweight. HEENT: Has troubles with vision. Denies any troubles with hearing. Has glaucoma. Has troubles swallowing. ENDOCRINE: No reports of blood sugar or glucose intolerance or hypothyroidism. CARDIOVASCULAR: Denies any recent heart attack or chest pain. RESPIRATORY: Has obstructive sleep apnea. Denies any active dyspnea on exertion. GI: Denies any bright red blood per rectum. Has gastroesophageal reflux disease and colon polyps. : History of bladder tumor status post cystoscopy and removal of bladder tumor. MUSCULOSKELETAL: Osteoarthritis of the knees. Has occasional back pain. NEURO: Denies any stroke or seizure disorder. PSYCH: Denies any depression or suicidal ideation. HEMATOLOGIC: Denies any easy bruising or bleeding. Denies any personal or family history of DVTs or pulmonary emboli. SKIN: No reports of cancer. History of dry skin. PHYSICAL EXAM: VITAL SIGNS: 5 feet 5.5 inches, 326 pounds. BMI 53.6 Vital Signs Temp 98.5 F 01/13/21 13:33 Pulse 71 01/13/21 13:33 Resp 16 01/13/21 13:33 BP 134/84 01/13/21 13:33 Pulse Ox GENERAL: Well-developed pleasant male in no acute distress. HEENT: No scleral icterus. Extraocular movements grossly intact. Moist buccal mucosa. NECK: Supple without lymphadenopathy. CHEST: Nonlabored respirations with equal bilateral excursions. CARDIOVASCULAR: Regular rate and rhythm. ABDOMEN: Obese, soft, nontender, nondistended. MUSCULOSKELETAL: No clubbing, cyanosis or edema. NEURO: No focal or lateralizing signs. Cranial nerves II through XII grossly within normal limits. PSYCH: Appropriate affect. Alert and oriented to person, place and time. SKIN: Good skin turgor. Well perfused. LABS: Iron is low at 40, Hgb A1c 5.0%. Vitamin A is low. Vitamin D is low. ASSESSMENT: 1. Super morbid obesity due to excess calories, BMI 61.3 to 50.8 2. Hypertension. 3. Glaucoma. 4. Gastroesophageal reflux disease. 5. Obstructive sleep apnea. 6. Osteoarthritis, knees 7. Colon polyps 8. Benign prostatic hypertrophy 9. Status post sleeve gastrectomy 10. Non-compliance to bariatric diet. 11. Change in bowel habits 12. Epigastric pain 13. Bariatric non-compliance 14. Dysphagia. 15. Change in bowel habits 16. Vitamin A deficiency 17. Vitamin D deficiency PLAN: 1. Recommend colonoscopy for continued change in bowel habits 2. Recommend upper endoscopy for dysphagia 3. Recommend bariatric dietitian for meal plans and options with his limited food choices. 4. Recommend bariatric labs. Objective - Vital Signs Vital signs: Vital Signs Temp 98.5 F 01/13/21 13:33 Pulse 71 01/13/21 13:33 Resp 16 01/13/21 13:33 BP 134/84 01/13/21 13:33 Pulse Ox Intake & Output 01/12/21 01/13/21 01/13/21 18:59 06:59 18:59 Weight 140.614 kg
== END ==
LOC: BARWHC3 13:03
PROVIDERS: ATTEND Surgery Plastic and Reconstructive Surgery
DX: E66.01 Morbid (severe) obesity due to excess calories (principal); E55.9 Vitamin D deficiency, unspecified; G47.33 Obstructive sleep apnea (adult) (pediatric); H40.9 Unspecified glaucoma; I10 Essential (primary) hypertension; K21.9 Gastro-esophageal reflux disease without esophagitis; M17.0 Bilateral primary osteoarthritis of knee; N40.0 Benign prostatic hyperplasia without lower urinary tract symptoms; K63.5 Polyp of colon; E50.9 Vitamin A deficiency, unspecified; R10.13 Epigastric pain; Z68.43 Body mass index [BMI] 50.0-59.9, adult; Z88.0 Allergy status to penicillin; Z88.5 Allergy status to narcotic agent; Z98.84 Bariatric surgery status; Z72.0 Tobacco use
CPT/HCPCS: 99211

== ENCOUNTER → 2021-01-14 | Outpatient (CLI) | payer MEDICARE ==
[2021-01-14 15:17] LABS: HCT 43.2 % (39.6-50.0); HGB 13.8 g/dL (13.0-17.0); MCH 29.5 pg (27.0-32.0); MCHC 31.9 g/dL (32.0-37.0); MCV 92.3 fL (80.0-97.0); Mean Platelet Volume 9.9 fL (9.5-12.2); Platelet Count 244 X 10*3/uL (140-440); RBC 4.68 X 10*6/uL (4.40-5.60); RDW 13.8 % (11.5-14.5); WBC 9.86 X 10*3/uL (4.50-10.00)
[2021-01-14 18:12] LABS: African American GFR (CKD) 99.2 (60.0-200.0); Albumin 4.2 g/dL (3.80-4.90); Albumin/Globulin Ratio 1.75 (1.60-3.17); Anion Gap 11.1 mmol/L (4.00-12.00); Calcium 9.4 mg/dL (8.7-10.3); Carbon Dioxide 26.9 mmol/L (21.6-31.8); Globulin 2.4 g/dL (1.6-3.3); LDL Cholesterol,Calculated 86.6 mg/dL (0.0-131.0); Magnesium 1.9 mg/dL (1.5-2.4); Non-African American GFR(CKD) 85.6 (60.0-200.0); Phosphorus 3.2 mg/dL (2.4-5.1); Potassium 4.3 mmol/L (3.5-5.5); Total Bilirubin 0.6 mg/dL (0.3-1.2); Total Protein 6.6 g/dL (6.2-8.2); VLDL Calculation 21.4 mg/dL (5.00-40.00)
[2021-01-14 18:13] LABS: % Iron Saturation 21.09 (15.00-50.00)
[2021-01-14 18:25] LABS: Folate, Serum 7.3 ng/mL
[2021-01-14 18:31] LABS: Ferritin 344.9 ng/mL (22.0-322.0)
[2021-01-14 19:52] LABS: Hemoglobin A1C 4.5 % (4.0-6.0)
[2021-01-14 20:22] LABS: INR 1.05 (0.90-1.11); Partial Thromboplastin Time 30.4 sec (23.5-31.0); Prothrombin Time 11.4 sec (9.9-11.9)
[2021-01-15 12:58] LABS: Zinc, Serum 60 ug/dL (60-130)
== END | disposition home or self-care (01) ==
LOC: LABWHC1 09:35
PROVIDERS: ATTEND Surgery Plastic and Reconstructive Surgery
DX: E66.01 Morbid (severe) obesity due to excess calories (principal); E89.1 Postprocedural hypoinsulinemia; D50.8 Other iron deficiency anemias; E55.9 Vitamin D deficiency, unspecified; K74.1 Hepatic sclerosis; N19 Unspecified kidney failure; K50.90 Crohn's disease, unspecified, without complications; K90.89 Other intestinal malabsorption
CPT/HCPCS: 36415; 80053; 80061; 82306; 82525; 82607; 82728; 82746; 83036; 83540; 83550; 83735; 83970; 84100; 84134; 84255; 84425; 84443; 84590; 84630; 85027; 85610; 85730

== ENCOUNTER → 2021-06-30 | Outpatient (CLI) | payer MEDICARE ==
[2021-06-30 13:45] VITALS: BP 165/85; PULSE 76; TEMP 98; BMI 47.0
--- NOTE | 2021-06-30 14:35 | P.BASOAP ---
Subjective Progress Note Date: 06/30/21 She comes in with his . He lost weight again. He reports stagnant at 5 weeks. He reports flabby skin and reports itchy. He does not use creams. Psoriasis he has had. Recommend skin creams for more dry skin. He is low on protein routinely and not enough vegetables. Objective - Vital Signs Vital signs: Vital Signs Temp 98 F 06/30/21 13:38 Pulse 76 06/30/21 13:38 Resp BP 165/85 06/30/21 13:38 Pulse Ox Intake & Output 06/29/21 06/30/21 06/30/21 18:59 06:59 18:59 Weight 130.181 kg Assessment/Plan Plan: Date: 06/30/21 Initial Weight: 159.029 kg Initial BMI: 57.4 Current Weight: 130.181 kg Current BMI: 47.0 Type of Surgery: Total Volume in Band: Previous Volume: Volume Removed: Volume Added: Band Size:
== END ==
LOC: BARWHC3 13:00
PROVIDERS: ATTEND Surgery Plastic and Reconstructive Surgery
DX: E66.01 Morbid (severe) obesity due to excess calories (principal); Z71.3 Dietary counseling and surveillance; Z68.42 Body mass index [BMI] 45.0-49.9, adult; Z88.5 Allergy status to narcotic agent; Z88.0 Allergy status to penicillin; Z87.891 Personal history of nicotine dependence
CPT/HCPCS: 97803; G0463; 99211

== ENCOUNTER → 2022-02-01 | Outpatient (CLI) | payer MEDICARE ==
[2022-02-01 09:11] LABS: Partial Thromboplastin Time 25.3 sec (22.0-30.0); Prothrombin Time 10.9 sec (9.0-12.0)
[2022-02-01 10:47] LABS: HCT 43.2 % (39.6-50.0); HGB 13.5 g/dL (13.0-17.0); MCH 29.3 pg (27.0-32.0); MCHC 31.3 g/dL (32.0-37.0); MCV 93.9 fL (80.0-97.0); Mean Platelet Volume 10.1 fL (9.5-12.2); NRBC Per 100 WBC 0 /100 WBCS (0.0-0.0); Platelet Count 225 X 10*3/uL (140-440); RDW 13.9 % (11.5-14.5); WBC 6.18 X 10*3/uL (4.50-10.00)
[2022-02-01 11:20] LABS: % Iron Saturation 29.17 (15.00-50.00); ALT 14 U/L (10-49); AST 20 U/L (14-35); African American GFR (CKD) 98.5 (60.0-200.0); Albumin/Globulin Ratio 1.74 (1.60-3.17); Alkaline Phosphatase 102 U/L (41-126); BUN/Creat Ratio 15.33 Ratio (12.00-20.00); Blood Urea Nitrogen 13.8 mg/dL (9.0-27.0); Calcium 9.4 mg/dL (8.7-10.3); Carbon Dioxide 26.7 mmol/L (20.0-27.5); Chloride 104 mmol/L (96-109); Globulin 2.3 g/dL (1.6-3.3); Glucose 95 mg/dL (70-110); Iron 74 ug/dL (65-175); Magnesium 2.2 mg/dL (1.5-2.4); Phosphorus 3.2 mg/dL (2.4-5.1); Potassium 4.6 mmol/L (3.5-5.5); Sodium 140 mmol/L (135-145); Total Iron Binding Capacity 252 ug/dL (228-460); Total Protein 6.3 g/dL (6.2-8.2)
[2022-02-01 11:58] LABS: Chol/HDL Ratio 3.19 Ratio; LDL Cholesterol,Calculated 77.7 mg/dL (0.0-131.0); Prealbumin 17.6 mg/dL (18.0-42.0)
[2022-02-02 12:01] LABS: Zinc, Serum 72 ug/dL (60-130)
[2022-02-03 09:23] LABS: Vitamin A 38 ug/dL (38-106)
[2022-02-03 15:21] LABS: Vit B1(Thiamine) 74 ug/L (38-122)
[2022-02-04 11:26] LABS: Selenium 142 mcg/L (63-160)
== END | disposition home or self-care (01) ==
LOC: LABWHC1 08:28
PROVIDERS: ATTEND Surgery Plastic and Reconstructive Surgery
DX: E66.01 Morbid (severe) obesity due to excess calories (principal); E89.1 Postprocedural hypoinsulinemia; D50.8 Other iron deficiency anemias; E44.1 Mild protein-calorie malnutrition; E45 Retarded development following protein-calorie malnutrition; E55.9 Vitamin D deficiency, unspecified; K74.1 Hepatic sclerosis; N19 Unspecified kidney failure; T56.894A Toxic effect of other metals, undetermined, initial encounter; K50.90 Crohn's disease, unspecified, without complications; Z12.5 Encounter for screening for malignant neoplasm of prostate; E44.0 Moderate protein-calorie malnutrition
CPT/HCPCS: 36415; 80053; 80061; 82306; 82525; 82607; 82728; 82746; 83036; 83540; 83550; 83735; 83970; 84100; 84134; 84153; 84255; 84425; 84443; 84590; 84630; 85027; 85610; 85730

== ENCOUNTER → 2023-10-18 | Outpatient (CLI) | payer MEDICARE ==
[2023-10-18 09:14] LABS: Partial Thromboplastin Time 25.3 sec (22.0-30.0); Prothrombin Time 11.1 sec (10.0-12.5)
[2023-10-18 11:54] LABS: HCT 43.8 % (39.6-50.0); HGB 14.2 g/dL (13.0-17.0); MCH 30.3 pg (27.0-32.0); MCHC 32.4 g/dL (32.0-37.0); MCV 93.6 FL (80.0-97.0); Mean Platelet Volume 9.6 FL (9.5-12.2); NRBC Per 100 WBC 0 X 10*3/uL (0.00-0.01); Platelet Count 244 X 10*3/uL (140-440); RBC 4.68 X 10*6/uL (4.40-5.60); RDW 13.8 % (11.5-14.5); WBC 7.43 X 10*3/uL (4.50-10.00)
[2023-10-18 14:16] LABS: % Iron Saturation 23.96 (15.00-50.00); ALT 20 U/L (10-49); AST 19 U/L (14-35); Albumin 4.2 g/dL (3.8-4.9); Albumin/Globulin Ratio 1.75 Ratio (1.60-3.17); Alkaline Phosphatase 107 U/L (41-126); BUN/Creat Ratio 18.22 Ratio (12.00-20.00); Blood Urea Nitrogen 16.4 mg/dL (9.0-27.0); Calcium 9.3 mg/dL (8.7-10.3); Carbon Dioxide 26.8 mmol/L (21.6-31.8); Chloride 104 mmol/L (96-109); Chol/HDL Ratio 3.31 Ratio; Globulin 2.4 g/dL (1.6-3.3); Glucose 89 mg/dL (70-110); Iron 69 UG/DL (65-175); LDL Cholesterol,Calculated 90.8 mg/dL (0.0-131.0); Phosphorus 3.7 mg/dL (2.4-5.1); Potassium 4.2 mmol/L (3.5-5.5); Sodium 140 mmol/L (135-145); Total Bilirubin 0.6 mg/dL (0.3-1.2); Total Iron Binding Capacity 288 UG/DL (228-460); Total Protein 6.6 g/dL (6.2-8.2); VLDL Calculation 14.58 mg/dL (5.00-40.00)
[2023-10-18 14:22] LABS: Prealbumin 19.7 mg/dL (18.0-42.0)
[2023-10-19 13:38] LABS: Zinc, Serum 72 ug/dL (60-130)
[2023-10-20 06:31] LABS: Vitamin A 48 ug/dL (38-106)
== END | disposition home or self-care (01) ==
LOC: LABWHC1 08:12
PROVIDERS: ATTEND Surgery Plastic and Reconstructive Surgery
DX: E66.01 Morbid (severe) obesity due to excess calories (principal); E89.1 Postprocedural hypoinsulinemia; D50.8 Other iron deficiency anemias; K91.2 Postsurgical malabsorption, not elsewhere classified; E44.0 Moderate protein-calorie malnutrition; E44.1 Mild protein-calorie malnutrition; E45 Retarded development following protein-calorie malnutrition; E55.9 Vitamin D deficiency, unspecified; K74.1 Hepatic sclerosis; N19 Unspecified kidney failure; T56.894A Toxic effect of other metals, undetermined, initial encounter; K50.90 Crohn's disease, unspecified, without complications; E46 Unspecified protein-calorie malnutrition
CPT/HCPCS: 36415; 80053; 80061; 82306; 82525; 82607; 82728; 82746; 83036; 83540; 83550; 83735; 83970; 84100; 84134; 84255; 84425; 84443; 84590; 84630; 85027; 85610; 85730

== ENCOUNTER → 2023-11-01 | Outpatient (CLI) | payer MEDICARE ==
--- NOTE | 2023-11-01 14:27 | P.HPBAR ---
Bariatric H&P - History & Physicial H&P Date: 11/01/23 History & Physicial: Visit/CC: Patient initial contact: Initial weight: 159.029 kg Initial weight in pounds: Height: Initial BMI: Last weight: Current weight: Current weight in pounds: Current BMI: [place] body weight (based on NIH guidelines): Excess body weight loss: The patient is a 73 year-old M who presents for Bariatric Assessment. Very minimal active and gained 30 pounds in 2 years. Less activity. He is eating at the tavern. Can eat whole burger. Eats at [employer]. He eats a big burger. No food gets stuck. He is hungry 1 hr after eating. Dinner yesterday, burger and iced tea sugar free. Ate crackers and chillis cornbread, fig bars for snacking, breakfast protein shake 30 g banana. Eats sphaghetti and pull pork and mac and cheese. Has sphagetti and bagel. Barely sleeps daily. Highest weight 385 pounds....285 pounds....taking more vit d. No diabetes. Past Medical History Past Medical History: Eye Disorder, GERD/Reflux, Hypertension, Osteoarthritis (OA), Prostate Disorder, Skin Disorder, Sleep Apnea/CPAP/BIPAP Additional Past Medical History / Comment(s): arthritis, DRYNESS AND CRACKING TO SKIN ON EMILY HANDS, EARLY GLAUCOMA History of Any Multi-Drug Resistant Organisms: None Reported Past Surgical History: Bariatric Surgery, Bladder Surgery, Joint Replacement, Orthopedic Surgery Additional Past Surgical History / Comment(s): elbow, hernia, spot removed from bladder, BILAT KNEE REPLACEMENT, Bariatric sleeve (07/09/20).Sleeve gastrectomy 07-09-20 Past Anesthesia/Blood Transfusion Reactions: No Reported Reaction Smoking Status: Former smoker - Past Family History Mother Family Medical History: Cancer Additional Family Medical History / Comment(s): Mother is from lung cancer. She was a smoker. Father Family Medical History: Cancer Additional Family Medical History / Comment(s): Father is from lung cancer. He was a smoker. Bariatric Checklist Checklist: Plan: Checklist: EGD: 1. Hiatal hernia: 2. H. Pylori: HgbA1c: Vitamin D: Smoking: Former smoker Primary care physician referral: no pcp Psychiatry clearance: Cardiology clearance: Sleep study: Diet journal: VTE risk score: VTE risk level: Rehab needs at discharge:
[2023-11-01 15:12] VITALS: BP 175/83; PULSE 59; RESP 16; TEMP 97.7; BMI 49.1
== END ==
LOC: BARWHC3 12:59
PROVIDERS: ATTEND Surgery Plastic and Reconstructive Surgery
DX: E66.01 Morbid (severe) obesity due to excess calories (principal); Z53.9 Procedure and treatment not carried out, unspecified reason
CPT/HCPCS: 99211

== ENCOUNTER → 2024-06-06 | Outpatient (CLI) | payer MEDICARE ==
[2024-06-06 10:15] LABS: Partial Thromboplastin Time 25.2 sec (22.0-30.0); Prothrombin Time 10.8 sec (10.0-12.5)
[2024-06-06 15:37] LABS: HCT 42.1 % (39.6-50.0); HGB 13.4 g/dL (13.0-17.0); MCHC 31.8 g/dL (32.0-37.0); MCV 91.1 FL (80.0-97.0); Mean Platelet Volume 9.5 FL (9.5-12.2); NRBC Per 100 WBC 0 X 10*3/uL (0.00-0.01); Platelet Count 240 X 10*3/uL (140-440); RBC 4.62 X 10*6/uL (4.40-5.60); RDW 13.8 % (11.5-14.5); WBC 6.05 X 10*3/uL (4.50-10.00)
[2024-06-06 15:40] LABS: Prealbumin 17.6 mg/dL (18.0-42.0)
[2024-06-06 15:45] LABS: % Iron Saturation 23.93 (15.00-50.00); ALT 16 U/L (10-49); AST 20 U/L (14-35); Albumin/Globulin Ratio 1.74 Ratio (1.60-3.17); Alkaline Phosphatase 102 U/L (41-126); BUN/Creat Ratio 20.67 Ratio (12.00-20.00); Blood Urea Nitrogen 18.6 mg/dL (9.0-27.0); Calcium 9.2 mg/dL (8.7-10.3); Carbon Dioxide 25.6 mmol/L (21.6-31.8); Chloride 104 mmol/L (96-109); Chol/HDL Ratio 3.21 Ratio; Globulin 2.3 g/dL (1.6-3.3); Glucose 95 mg/dL (70-110); Iron 67 UG/DL (65-175); LDL Cholesterol,Calculated 91.3 mg/dL (0.0-131.0); Magnesium 1.9 mg/dL (1.5-2.4); Phosphorus 3.3 mg/dL (2.4-5.1); Potassium 4.2 mmol/L (3.5-5.5); Sodium 139 mmol/L (135-145); Total Bilirubin 0.5 mg/dL (0.3-1.2); Total Iron Binding Capacity 280 UG/DL (228-460); Total Protein 6.3 g/dL (6.2-8.2)
[2024-06-07 09:39] LABS: Zinc, Serum 68 ug/dL (60-130)
== END | disposition home or self-care (01) ==
LOC: LABWHC1 09:04
PROVIDERS: ATTEND Surgery Plastic and Reconstructive Surgery
DX: E89.1 Postprocedural hypoinsulinemia (principal); D50.8 Other iron deficiency anemias; D50.9 Iron deficiency anemia, unspecified; K91.2 Postsurgical malabsorption, not elsewhere classified; E44.0 Moderate protein-calorie malnutrition; E44.1 Mild protein-calorie malnutrition; E45 Retarded development following protein-calorie malnutrition; E46 Unspecified protein-calorie malnutrition; E55.9 Vitamin D deficiency, unspecified; K74.1 Hepatic sclerosis; N19 Unspecified kidney failure; T56.894A Toxic effect of other metals, undetermined, initial encounter; K50.90 Crohn's disease, unspecified, without complications
CPT/HCPCS: 36415; 80053; 80061; 82306; 82525; 82607; 82728; 82746; 83036; 83540; 83550; 83735; 83970; 84100; 84134; 84255; 84425; 84443; 84590; 84630; 85027; 85610; 85730

== ENCOUNTER 2024-12-09 08:25 | Day surgery (SDC) | payer MEDICARE ==
--- NOTE | 2024-12-09 08:00 | P.GSHP ---
History of Present Illness H&P Date: 12/09/24 CHIEF COMPLAINT: GERD and colon screen HISTORY OF PRESENT ILLNESS: The patient is a 74-year-old male who presents with gastroesophageal reflux disease and need for colon screen. Upper and lower endoscopy were offered for further evaluation and management. PAST MEDICAL HISTORY: Please see list. PAST SURGICAL HISTORY: Please see list. MEDICATIONS: Please see list. ALLERGIES: Please see list. SOCIAL HISTORY: No illicit drug use FAMILY HISTORY: No reports of Crohn disease or ulcerative colitis. REVIEW OF ORGAN SYSTEMS: CONSTITUTIONAL: No reports of fevers or chills. GI: Denies any blood in stools or constipation. PHYSICAL EXAM: VITAL SIGNS: Stable GENERAL: Well-developed pleasant in no acute distress. HEENT: No scleral icterus. Extraocular movements grossly intact. Moist buccal mucosa. NECK: Supple without lymphadenopathy. CHEST: Unlabored respirations. Equal bilateral excursions. CARDIOVASCULAR: Regular rate and rhythm. Distal 2+ pulses. ABDOMEN: Soft, nondistended. MUSCULOSKELETAL: No clubbing, cyanosis, or edema. ASSESSMENT: 1. Gastroesophageal reflux disease 2. Colon screen. PLAN: 1. Recommend proceeding with an upper and lower endoscopy Past Medical History Past Medical History: Eye Disorder, GERD/Reflux, Hypertension, Osteoarthritis (OA), Prostate Disorder, Sleep Apnea/CPAP/BIPAP, Thyroid Disorder Additional Past Medical History / Comment(s): EARLY GLAUCOMA, Aortic Aneurysm- (per cxr)cardiology recently told pt it was nothing to worry about recheck in a year., does not wear cpap. no meds for BP at this time. History of Any Multi-Drug Resistant Organisms: None Reported Past Surgical History: Bariatric Surgery, Bladder Surgery, Joint Replacement, Orthopedic Surgery Additional Past Surgical History / Comment(s): elbow, hernia, spot removed from bladder, BILAT KNEE REPLACEMENT, .Sleeve gastrectomy 07-09-20. colonoscopy Past Anesthesia/Blood Transfusion Reactions: No Reported Reaction Smoking Status: Former smoker - Past Family History Mother Family Medical History: Cancer Additional Family Medical History / Comment(s): Mother is from lung cancer. She was a smoker. Father Family Medical History: Cancer Additional Family Medical History / Comment(s): Father is from lung cancer. He was a smoker. Medications and Allergies Home Medications Medication Instructions Recorded Confirmed Type Levothyroxine Sodium [Levo-T] 50 mcg PO DAILY #30 tablet 11/20/24 12/06/24 Rx Sodium, Potassium,Mag Sulfates 354 ml PO DIRECTED #1 kit 11/20/24 12/06/24 Rx [Suprep Bowel Prep Kit] Tamsulosin HCl [Flomax] 0.4 mg PO DAILY 11/20/24 12/06/24 History Multi Vitamin 1 tab PO DAILY 12/06/24 12/06/24 History timoloL [timoloL 0.5% Ophth Soln] 1 drop BOTH EYES DIRECTED 12/06/24 12/06/24 History Allergies Allergy/AdvReac Type Severity Reaction Status Date / Time codeine Allergy Nausea & Verified 12/06/24 11:38 Vomiting penicillin V Allergy Nausea & Verified 12/06/24 11:38 Vomiting
[2024-12-09] MEDS ORDERED: LIDOCAINE 1% (10MG/ML) FOR IV START INTRADERMA PRN (08:36)
[2024-12-09 08:45] VITALS: TEMP 97.6
[2024-12-09] MEDS: IV FLUID CONTINUATION 1,000 ML IV ONE ×2 (08:54→09:00)
[2024-12-09] MEDS: LACTATED RINGERS 1,000 ML IV SCH (08:55)
[2024-12-09] MEDS ORDERED: LIDOCAINE 1% INJ 10MG/ML (20 ML MDV) ONE (09:01)
[2024-12-09] MEDS ORDERED: PROPOFOL 10 MG/ML 20 ML VIAL IV ONE (09:01)
--- NOTE | 2024-12-09 09:21 | P.PCN ---
Date of Procedure: 12/09/24 Description of Procedure: PREOPERATIVE DIAGNOSIS: Gastroesophageal reflux disease. Morbid obesity. Dysphagia POSTOPERATIVE DIAGNOSIS: Gastroesophageal reflux disease. Morbid obesity. Gastritis. Diaphragmatic hiatal hernia Lower esophageal stenosis OPERATION: Esophagogastroduodenoscopy with cold forceps biopsies along esophagus, antrum and duodenum Esophagogastrojejunoscopy with rigid dilator, 60 [place] SURGEON: Aliza Haddad MD ANESTHESIA: MAC. INDICATIONS: The patient is a 46-year-old female who presents with dysphagia and reflux disease. Benefits and risks of the procedure were described. Informed consent was obtained. DESCRIPTION: The patient was brought into the endoscopy suite and laid in the left lateral decubitus position. An Olympus gastroscope was passed along the posterior oropharynx down to the distal esophagus where the squamocolumnar junction was encountered at 38 cm from the incisors. The stomach was entered and bile reflux was found. Presence of sleeve gastrectomy was found without encroachment on the angularis incisura. A guidewire was placed within the scope and removed. A [place] rigid dilator 60 [place] was placed at 50 cm for 2 minutes and removed to address lower esophageal stenosis. The dilator was removed. The scope was reentered. Additional findings are listed below. Biopsies with cold forceps were obtained of the antrum. The first through third portion of the duodenum was examined. No retroflexion allowed due to sleeve gastrectomy. The squamocolumnar junction demonstrated LA grade B erosive esophagitis. The stomach was desufflated. The patient tolerated the procedure well. FINDINGS: Squamocolumnar junction 38 cm from the incisors. Diaphragmatic hiatus at 40 cm. Hiatal hernia, 2 cm By reflux identified. Hill grade -- lower esophageal valve, unable to obtain due to sleeve gastrectomy LA grade B erosive esophagitis. Biopsies obtained Adequate size sleeve gastrectomy reservoir without tortuosity or encroachment on angularis incisura Biopsies obtained of the duodenum. Chronic gastritis with biopsies obtained. Dilation of lower esophageal stenosis using 60 [place]ian rigid dilator RECOMMENDATIONS: Upper endoscopy as needed.
--- NOTE | 2024-12-09 09:41 | P.PCN ---
Date of Procedure: 12/09/24 Description of Procedure: PREOPERATIVE DIAGNOSIS: Personal history of colon polyps Colonoscopy screening POSTOPERATIVE DIAGNOSIS: Tubular adenoma ascending Tubular adenoma transverse colon Internal and external hemorrhoids, grade 2 OPERATION: Colonoscopy to the ileocecal valve and appendiceal orifice, cecum Colonoscopy with cold forceps biopsy SURGEON: Aliza Haddad MD. ANESTHESIA: MAC. INDICATIONS: The patient is an 74-year-old male who presents personal history of colon polyps. Last colonoscopy 5 years. Benefits and risks were described and informed consent was obtained. DESCRIPTION OF PROCEDURE: The patient had undergone Sutab prep. The patient had been brought into the operating room and laid in the left lateral decubitus position. After adequate intravenous sedation, the rectum was examined with 2% lidocaine jelly. The prostate was unremarkable. External hemorrhoids were encountered. The rectal tone was within normal limits. No lesions were palpated in the rectal vault. An Olympus colonoscope was advanced until the cecum, ileocecal valve and appendiceal orifice were clearly viewed. The prep was good however poor at the ascending colon and cecum with poor visualization of the mucosa. No sigmoid diverticulosis was encountered. Colonic polyps were found and removed. No evidence of focal colitis was found. Retroflexion of the scope demonstrated grade 2 internal hemorrhoids without active bleeding or inflammation. The colon was desufflated. The patient had tolerated the procedure well. Withdrawal time was over 6 minutes. FINDINGS: Aronchick preparation quality scale 3 (1-5) Internal hemorrhoids, grade 2 External hemorrhoids, grade 2. No arteriovenous malformations. No sigmoid diverticulosis Highly redundant sigmoid colon requiring abdominal pressure Removal of 1 polyps: - Cold forceps biopsy at ascending colon, 4 mm adenoma No focal colitis. RECOMMENDATIONS: Repeat colonoscopy 3 years, 2027 with 2 to 3-day prep Plan - Discharge Summary New Discharge Prescriptions: New Levothyroxine Sodium [Synthroid] 100 mcg PO DAILY #30 tab Continue Sodium, Potassium,Mag Sulfates [Suprep Bowel Prep Kit] 354 ml PO DIRECTED #1 kit Tamsulosin HCl [Flomax] 0.4 mg PO DAILY timoloL [timoloL 0.5% Ophth Soln] 1 drop BOTH EYES DIRECTED Multi Vitamin 1 tab PO DAILY Discontinued Levothyroxine Sodium [Levo-T] 50 mcg PO DAILY #30 tablet Discharge Medication List Sodium, Potassium,Mag Sulfates [Suprep Bowel Prep Kit] 354 ml PO DIRECTED #1 kit 11/20/24 [Rx] Tamsulosin HCl [Flomax] 0.4 mg PO DAILY 11/20/24 [History] Multi Vitamin 1 tab PO DAILY 12/06/24 [History] timoloL [timoloL 0.5% Ophth Soln] 1 drop BOTH EYES DIRECTED 12/06/24 [History] Levothyroxine Sodium [Synthroid] 100 mcg PO DAILY #30 tab 12/09/24 [Rx] Follow up Appointment(s)/Referral(s[facility] [place] [facility] - 01/01/25 3:00 pm Patient Instructions/Handouts: Hiatal Hernia (DC), Colorectal Polyps (GEN), Esophageal Dilation (GEN) Activity/Diet/Wound Care/Special Instructions: Salt water gargle twice a day for 2 days. Recommend soft diet for 2 days. Take 2 tablets of Synthroid for 100 mcg dose daily Discharge Disposition: HOME SELF-CARE
[2024-12-09 09:48] VITALS: RESP 15
[2024-12-09 10:40] VITALS: BP 177/81; PULSE 79
== END 2024-12-09 10:40 | disposition home or self-care (01) ==
LOC: ORWHC2ENDO 08:25
PROVIDERS: ATTEND Surgery Plastic and Reconstructive Surgery
DX: Z12.11 Encounter for screening for malignant neoplasm of colon (principal); K29.50 Unspecified chronic gastritis without bleeding; K21.00 Gastro-esophageal reflux disease with esophagitis, without bleeding; D12.2 Benign neoplasm of ascending colon; K64.1 Second degree hemorrhoids; K64.4 Residual hemorrhoidal skin tags; D12.3 Benign neoplasm of transverse colon; E66.01 Morbid (severe) obesity due to excess calories; K22.2 Esophageal obstruction; K44.9 Diaphragmatic hernia without obstruction or gangrene; Z98.84 Bariatric surgery status; I10 Essential (primary) hypertension; G47.30 Sleep apnea, unspecified; Z79.890 Hormone replacement therapy; Z87.891 Personal history of nicotine dependence; Z88.0 Allergy status to penicillin
CPT/HCPCS: 88305; 45380; 43239; 43248; J2003; J2704

== ENCOUNTER → 2024-12-18 | Outpatient (CLI) | payer MEDICARE ==
--- NOTE | 2024-12-18 08:43 | US ---
EXAMINATION TYPE: US gallbladder DATE OF EXAM: 12/18/2024 COMPARISON: NONE CLINICAL INDICATION: Male, 74 years old with history of R10.11 RUQ; RUQ pain TECHNIQUE: Grayscale and color Doppler imaging of the right upper quadrant was performed. FINDINGS: EXAM MEASUREMENTS: Liver Length: 15.0 cm Gallbladder Wall: 0.5 cm Right Kidney: 11.5 x 4.9 x 4.7 cm PIPE CHANGER NOTES:Technical limitations due to patient's body habitus and large amount of overlying bowel gas Pancreas: Obscured by bowel gas Liver: limited evaluation, appears wnl as visualized Gallbladder: large amount of shadowing, appears to be filled with stones. Evidence for sonographic Benitez's sign: no CBD: Obscured by overlying bowel gas Right Kidney: no evidence of hydronephrosis IMPRESSION: 1. Exam limitations as above. 2. Extensive shadowing from the gallbladder suggests that it is filled with stones. Sonographic Shiv y's sign reported absent. 3. No biliary ductal dilatation. [facility], , 12/18/2024 8:41 AM
== END | disposition home or self-care (01) ==
LOC: RADUSWWP 07:06
PROVIDERS: ATTEND Surgery Plastic and Reconstructive Surgery
DX: R10.11 Right upper quadrant pain (principal)
CPT/HCPCS: 76705

== ENCOUNTER → 2024-12-18 | Outpatient (CLI) | payer MEDICARE ==
--- NOTE | 2024-12-18 08:25 | US ---
EXAMINATION TYPE: US prostate transrectal DATE OF EXAM: 12/18/2024 COMPARISON: NONE CLINICAL INDICATION: Male, 74 years old with history of N40.1 BPH W/LUTS; BPH, urinary retention TECHNIQUE: Grayscale and color Doppler imaging of the prostate gland. This examination was performed using the transrectal probe. EXAM MEASUREMENTS: Gland Size: 4.5 x 2.3 x 3.5cm Volume: 19.0 ml Predicted PSA: 2.28 Actual PSA (if available):not available Heterogeneous gland. no discrete lesion visualized within peripheral zone IMPRESSION: 1. No suspicious masses visualized. 2. Note that prostate MRI is a more sensitive exam for the detection of clinically significant prost ate adenocarcinoma. Predicted PSA = volume x 0.12 ng/ml Calculated Volume = 0.5236 x L x W x H [facility], , 12/18/2024 8:22 AM
== END | disposition home or self-care (01) ==
LOC: RADUSWWP 07:09
PROVIDERS: ATTEND Student in an Organized Health Care Education/Training Program
DX: N40.1 Benign prostatic hyperplasia with lower urinary tract symptoms (principal); R33.8 Other retention of urine
CPT/HCPCS: 76872

== ENCOUNTER 2025-01-20 10:08 | Day surgery (SDC) | payer MEDICARE ==
[2025-01-17 08:44] VITALS: BMI 49.1
--- NOTE | 2025-01-20 08:58 | P.GSHP ---
History of Present Illness H&P Date: 01/20/25 CHIEF COMPLAINT: Cholecystitis HISTORY OF PRESENT ILLNESS: The patient is a 75-year-old male who presents with gallstones including epigastric including right upper quadrant abdominal pain for over 3 months. He underwent diagnostic studies for the gallbladder. Separately his clinical picture was consistent with cholecystitis. Now he presents for surgical intervention. PAST MEDICAL HISTORY: Please see list PAST SURGICAL HISTORY: Please see list MEDICATIONS: Please see list ALLERGIES: Denies. SOCIAL HISTORY: No illicit drug use or recent tobacco use FAMILY HISTORY: Pertinent for gallbladder disease REVIEW OF ORGAN SYSTEMS: CONSTITUTIONAL: No reports of fevers or chills. Morbid obesity, BMI 49.2 HEENT: Denies any troubles with the vision or hearing. ENDOCRINE: No reports of hypothyroidism. No diabetes. RESPIRATORY: No recent pneumonias. CARDIOVASCULAR: Denies chest pain or palpitations GI: No blood in stools or constipation. MUSCULOSKELETAL: Has occasional joint pain including back pain. NEURO: No seizure disorders or headaches. No recent stroke. PSYCH: No depression or suicidal ideation. HEMATOLOGIC: No personal or family history of DVTs or pulmonary emboli. PHYSICAL EXAM: VITAL SIGNS: Afebrile vital signs stable GENERAL: Well-developed pleasant male in no acute distress. HEENT: No scleral icterus. Extraocular movements grossly intact. Moist buccal mucosa. NECK: Supple without lymphadenopathy. CHEST: Unlabored respirations. Equal bilateral excursions. CARDIOVASCULAR: Regular rate regular rhythm rhythm. Distal 2+ pulses. ABDOMEN: Soft, nondistended. Tender along the epigastrium and right upper quadrant. MUSCULOSKELETAL: No clubbing, cyanosis, or edema. NEURO : No focal or lateralizing signs. Cranial nerves II-12 within normal limits. PSYCH: Alert and oriented to person, place and time. SKIN: Well perfused. Good skin turgor. ASSESSMENT: 1. Epigastric and right upper quadrant abdominal pain due to gallstones 2. Chronic cholecystitis 3. Morbid obesity due to excess calories, BMI 49.2 4. Abnormal EKG 5. Abdominal aortic aneurysm PLAN: 1. Will need a robotic cholecystectomy possible open. Benefits and risks were described. 2. Heparin for DVT prophylaxis 5000 units. 3. Antibiotic prophylaxis. 4. CBC and CMP on day of procedure 5. Non-narcotic pre and post op pain management reviewed. 6. Indocyanine green for biliary imaging. 7. He is elevated risk due to morbid obesity, pre-existing heart disease Past Medical History Past Medical History: Eye Disorder, GERD/Reflux, Hypertension, Osteoarthritis (OA), Prostate Disorder, Sleep Apnea/CPAP/BIPAP, Thyroid Disorder Additional Past Medical History / Comment(s): EARLY GLAUCOMA, Ascending Aortic Aneurysm- (per cxr)cardiology recently told pt it was nothing to worry about recheck in a year., does not wear cpap. no meds for BP at this time. BPH History of Any Multi-Drug Resistant Organisms: None Reported Past Surgical History: Bariatric Surgery, Bladder Surgery, Joint Replacement, Orthopedic Surgery Additional Past Surgical History / Comment(s): elbow, hernia, spot removed from bladder, BILAT KNEE REPLACEMENT, .Sleeve gastrectomy 07-09-20. colonoscopy Past Anesthesia/Blood Transfusion Reactions: No Reported Reaction Additional Past Anesthesia/Blood Transfusion Reaction / Comment(s): no hx blood transfusion Smoking Status: Former smoker - Past Family History Mother Family Medical History: Cancer Additional Family Medical History / Comment(s): Mother is from lung cancer. She was a smoker. Father Family Medical History: Cancer Additional Family Medical History / Comment(s): Father is from lung cancer. He was a smoker. Medications and Allergies Home Medications Medication Instructions Recorded Confirmed Type Tamsulosin HCl [Flomax] 0.4 mg PO HS 11/20/24 01/17/25 History timoloL [timoloL 0.5% Ophth Soln] 1 drop BOTH EYES BID 12/06/24 01/17/25 History Levothyroxine Sodium [Synthroid] 100 mcg PO QAM 01/17/25 01/17/25 History Multivitamins, Thera [Multivitamin 1 tab PO DAILY@1800 01/17/25 01/17/25 History (formulary)] Allergies Allergy/AdvReac Type Severity Reaction Status Date / Time codeine AdvReac Nausea & Verified 01/17/25 08:18 Vomiting penicillin V AdvReac Nausea & Verified 01/17/25 08:18 Vomiting
[~2025-01-20 10:08] MED LIST changes: +INDOCYANINE GREEN 25 MG VIAL IV STA; -LACTATED RINGERS 1,000 ML IV SCH; -LIDOCAINE 1% (10MG/ML) FOR IV START INTRADERMA PRN
[2025-01-20] MEDS: IV FLUID CONTINUATION 1,000 ML IV ONE (10:24)
[2025-01-20] MEDS: DEXAMETHASONE SOD PHOSPHATE 4 MG/ML 1 ML VIAL IV ONE (11:02)
[2025-01-20] MEDS: ONDANSETRON 4 MG/2 ML VIAL IVP ONE (11:02)
[2025-01-20] MEDS: HEPARIN SODIUM,PORCINE 5,000 UNIT/ML 1 ML VIAL SQ PRN (11:02)
[2025-01-20 11:03] LABS: Basophils # (A) 0.06 10*3/uL (0.00-0.10); Basophils % (A) 0.8 %; Eosinophils # (A) 0.29 10*3/uL (0.04-0.35); Eosinophils % (A) 3.8 %; HGB 13.1 g/dL (13.0-17.0); Lymphocytes # (A) 1.32 10*3/uL (0.90-5.00); Lymphocytes % (A) 17.1 %; MCH 30.7 pg (27.0-32.0); MCHC 33.6 g/dL (32.0-37.0); MCV 91.3 fL (80.0-97.0); Mean Platelet Volume 9.5 fL (9.5-12.2); Monocytes # (A) 0.49 10*3/uL (0.20-1.00); Monocytes % (A) 6.4 %; Neutrophils % (A) 71.3 %; Platelet Count 227 10*3/uL (140-440); RBC 4.27 10*6/uL (4.40-5.60); WBC 7.71 10*3/uL (4.50-10.00)
[2025-01-20] MEDS: LACTATED RINGERS 1,000 ML IV SCH (11:03)
[2025-01-20 11:18] LABS: ALT 22 U/L (4-49); African American GFR (CKD) >90 (>60 ml/min/1.73 sqM); Albumin 3.8 g/dL (3.5-5.0); Anion Gap 11 mmol/L; Blood Urea Nitrogen 18 mg/dL (9-20); Calcium 9.3 mg/dL (8.4-10.2); Carbon Dioxide 25 mmol/L (22-30); Chloride 102 mmol/L (98-107); Glucose 93 mg/dL (74-99); Non-African American GFR(CKD) 89 (>60 ml/min/1.73 sqM); Sodium 138 mmol/L (137-145); Total Bilirubin 0.7 mg/dL (0.2-1.3); Total Protein 6.6 g/dL (6.3-8.2)
[2025-01-20 11:22] LABS: AST 30 U/L (17-59); Alkaline Phosphatase 98 U/L (38-126); Potassium 4.5 mmol/L (3.5-5.1)
[2025-01-20] MEDS ORDERED: GLYCOPYRROLATE 0.2 MG/ML 2 ML VIAL ONE (11:47)
[2025-01-20] MEDS ORDERED: PROPOFOL 10 MG/ML 20 ML VIAL IV ONE (11:47)
[2025-01-20] MEDS: ceFAZolin 3 GM in SODIUM CHLORIDE 0.9% 100 ML IVPB PRN (11:47)
[2025-01-20] MEDS ORDERED: SUCCINYLCHOLINE CHLORIDE 200 MG/10 ML VIAL IV ONE (11:47)
[2025-01-20] MEDS ORDERED: fentaNYL (PF) 50 MCG/ML 2 ML AMP ONE (11:47)
[2025-01-20] MEDS ORDERED: NEOSTIGMINE 1 MG/ML 10 ML VIAL ONE (11:47)
[2025-01-20] MEDS ORDERED: ROCURONIUM 10 MG/ML (5 ML VIAL) IV ONE (11:47)
[2025-01-20] MEDS ORDERED: LIDOCAINE 1% INJ 10MG/ML (20 ML MDV) ONE (11:47)
[2025-01-20] MEDS: LIDOCAINE 1%-EPI 1:100,000 20 ML VIAL SQ ONE (12:12)
[2025-01-20] MEDS: LACTATED RINGERS 1,000 ML IV ONE (13:11)
[2025-01-20 13:28] VITALS: TEMP 97.3
--- NOTE | 2025-01-20 14:04 | P.OP ---
Date of Procedure: 01/20/25 Description of Procedure: SURGEON: EM LEIJA MD PREOPERATIVE DIAGNOSES: 1. Cholecystitis due to gallstones 2. Morbid obesity excess calories, BMI 49.6 3. History of sleeve gastrectomy 4. Abdominal aortic aneurysm 5. Hypertensive heart disease 6. Hypothyroidism 7. Glaucoma 8. Obstructive sleep apnea POSTOPERATIVE DIAGNOSES: 1. Acute on chronic cholecystitis due to gallstones 2. Morbid obesity excess calories, BMI 49.6 3. History of sleeve gastrectomy 4. Abdominal aortic aneurysm 5. Hypertensive heart disease 6. Hypothyroidism 7. Glaucoma 8. Obstructive sleep apnea OPERATION: Robotic-assisted da Hernandez Xi laparoscopic cholecystectomy, multiport with FIREFLY ESTIMATED BLOOD LOSS: 10 mL. SPECIMENS REMOVED: Gallbladder. COMPLICATIONS: None. OPERATIVE FINDINGS: 1. Moderate scarring over entire gallbladder with peritoneal adhesions, pericholecystic with features of chronic cholecystitis 2. Entire gallbladder filled with gallstones, 5 to 6 mm 3. Gallbladder infundibulum adherent to anterior surface of common bile duct with increased attention of dissection INDICATIONS: The patient is a 75-year-old male who presents with atypical chest pain including epigastric abdominal pain. Cardiac risk assessment was obtained prior to procedure. Diagnostic studies demonstrated symptomatic gallstones. Robotic assisted laparoscopic approach was described. Benefits and risks of the procedure including but not limited to bleeding, infection, injury to the biliary tree was described. Informed consent was obtained. DESCRIPTION OF PROCEDURE: Patient was brought to the operating room, placed in supine position. After general induction, the abdomen had been prepped and draped in standard sterile fashion. The robotic da Hernandez XI system was primed. After a timeout protocol was performed, the patient had been prepped and draped in standard sterile fashion. The patient was injected with indocyanine green. A 5 mm 0 degrees laparoscopic trocar entry was performed along the left upper quadrant. The abdomen insufflated to 15 mmHg pressure which was tolerated well. Diagnostic laparoscopy demonstrated no injury to bowel viscera or mesentery. The liver surface was unremarkable. Next, two 8 mm robotic ports were placed along the right upper abdomen. The camera 8-mm port was maintained along the epigastrium. Another 8 mm port was placed along the left upper abdominal wall after exchanging the 5 mm port. Please note that the ports were placed at least 10 to 15 cm away from the target anatomy of the gallbladder. The robot was docked along the left lateral abdomen. The patient was repositioned in reverse Trendelenburg position. Using a grasper for arm 1, a grasper for arm 4, including hook cautery for arm 3, the robotic system was docked and primed as described. Instruments were interchanged by the economic research assistant including hook cautery, Bovie cautery and clip appliers. I had sat at the console. The gallbladder was scarred with peritoneal adhesions. Lysis of adhesions was performed to free the gallbladder from the surrounding tissues. Additionally, dome down technique was performed from the fundus toward the infundibulum. The infundibulum was adherent to the anterior surface of the common hepatic duct. Careful dissection was performed without injury to the biliary structures. Next attention was brought to the infundibulum and cystic structures. The infundibulum and cystic duct were dissected free from surrounding tissues. The cystic duct was isolated. FIREFLY was used to identify the cystic artery and cystic structures. A critical view of safety was obtained. Large PLASTIC clips were used throughout the entire case. Using a clip valve seater operator, 3 clips were placed at the junction of the infundibulum and cystic duct. The cystic duct was divided between clips. Next, the cystic artery was cauterized. Total of 3 clips remained along the hepatic fossa. The gallbladder serosa was thin where 2 gallstones were released from the gallbladder however captured and removed with retrieval of the gallbladder. Electro-Bovie cautery was used to remove the gallbladder from the hepatic fossa. Hemostasis was checked and found to be adequate. The robot was undocked. I re-scrubbed into the case. Using a 10 mm Endo Catch bag via the left upper quadrant incision, the specimen was removed from the abdominal cavity. All pneumoperitoneum instruments were evacuated from the abdominal cavity. The incisions were reapproximated using 4-0 Monocryl in an interrupted subcuticular fashion. Rishabh Powell 0 Vicryl was used to close the defect as the gallbladder was large and multiple gallstones and sponge was used to remove any bile spillage from the erosion of the gallstones from the gallbladder wall. Please note along the trocar sites, local anesthetic was placed as a field block prior to insertion of all instruments. Liquid glue was applied to the skin. At the end of the procedure needle, sponge, and instrument count had been verified correct by the surgical assist. The patient was transferred to postanesthesia care unit in stable condition. Intraoperative films were shared with the patient's family. Plan - Discharge Summary Discharge Rx Participant: No New Discharge Prescriptions: New Simethicone [Gas-X] 125 mg PO AC-TID PRN #20 capsule PRN Reason: Pain Acetaminophen Tab [Tylenol Tab] 1,000 mg PO Q6HR PRN #30 tablet PRN Reason: Pain Ibuprofen [Motrin] 600 mg PO Q8HR PRN #30 tab PRN Reason: Pain Continue Levothyroxine Sodium [Synthroid] 100 mcg PO QAM Tamsulosin HCl [Flomax] 0.4 mg PO HS timoloL [timoloL 0.5% Ophth Soln] 1 drop BOTH EYES BID Multivitamins, Thera [Multivitamin (formulary)] 1 tab PO DAILY@1800 Discharge Medication List Tamsulosin HCl [Flomax] 0.4 mg PO HS 11/20/24 [History] timoloL [timoloL 0.5% Ophth Soln] 1 drop BOTH EYES BID 12/06/24 [History] Levothyroxine Sodium [Synthroid] 100 mcg PO QAM 01/17/25 [History] Multivitamins, Thera [Multivitamin (formulary)] 1 tab PO DAILY@1800 01/17/25 [History] Acetaminophen Tab [Tylenol Tab] 1,000 mg PO Q6HR PRN #30 tablet 01/20/25 [Rx] Ibuprofen [Motrin] 600 mg PO Q8HR PRN #30 tab 01/20/25 [Rx] Simethicone [Gas-X] 125 mg PO AC-TID PRN #20 capsule 01/20/25 [Rx] Follow up Appointment(s)/Referral(s[facility] [place] [facility] - 01/29/25 3:00 pm Patient Instructions/Handouts: Gallstones (DC), Laparoscopic Cholecystectomy (DC) Activity/Diet/Wound Care/Special Instructions: NO LONG DRIVES OR AIRPLANE RIDES OVER 60 MINUTES FOR THE NEXT 2 WEEKS DUE TO HIGH RISK OF PULMONARY EMBOLISM/DVTs May drive in 72 hrs, 01/23/2025 Recommend low-fat diet for the next 2 days. No lifting over 10 pounds in 2 weeks until February 03November shower. No bath tub soaks for two weeks until February 03 Diet as tolerated. Use Tylenol, simethicone and ibuprofen or Aleve scheduled for the next 24-48 hours for best pain relief. Use ice along incisions for today to prevent swelling. Discharge Disposition: HOME SELF-CARE
[2025-01-20] MEDS: fentaNYL (PF) 50 MCG/ML 2 ML AMP IV PRN (14:07)
[2025-01-20] MEDS: hydrALAZINE HCL 20 MG/ML 1 ML VIAL IVP PRN (14:36)
[2025-01-20] MEDS: LABETALOL SYRINGE 5 MG/ML (4 ML SYR) IVP STA (14:58)
[2025-01-20] MEDS: TAMSULOSIN 0.4 MG CAP.ER.24H PO STA (15:27)
[2025-01-20 16:34] VITALS: BP 169/85; PULSE 86; RESP 18
== END 2025-01-20 16:58 | disposition home or self-care (01) ==
LOC: OR 10:08
PROVIDERS: ATTEND Surgery Plastic and Reconstructive Surgery
DX: K80.12 Calculus of gallbladder with acute and chronic cholecystitis without obstruction (principal); I11.9 Hypertensive heart disease without heart failure; I71.21 Aneurysm of the ascending aorta, without rupture; G47.33 Obstructive sleep apnea (adult) (pediatric); E03.9 Hypothyroidism, unspecified; N40.0 Benign prostatic hyperplasia without lower urinary tract symptoms; K21.9 Gastro-esophageal reflux disease without esophagitis; H40.9 Unspecified glaucoma; K66.0 Peritoneal adhesions (postprocedural) (postinfection); R94.31 Abnormal electrocardiogram [ECG] [EKG]; E66.01 Morbid (severe) obesity due to excess calories; Z68.42 Body mass index [BMI] 45.0-49.9, adult; Z79.890 Hormone replacement therapy; Z79.899 Other long term (current) drug therapy; Z98.84 Bariatric surgery status; Z87.891 Personal history of nicotine dependence; Z88.5 Allergy status to narcotic agent; Z88.0 Allergy status to penicillin
CPT/HCPCS: 47562; S2900; 80053; 85025; 88304

== ENCOUNTER → 2025-01-29 | Outpatient (CLI) | payer MEDICARE ==
--- NOTE | 2025-01-29 15:19 | P.BASOAP ---
Subjective Progress Note Date: 01/29/25 He has 4 days of head ache and nausea and dizziness. He had vertigo. Dizzness/vertigo is gone. He aciphex. He has persistent GERD. He had troubles with constipation now it is improved. He no longer needs a laxative. Has gallstones. No infections. Need TSH check Assessment/Plan Plan: Date: Initial Weight: 159.029 kg Initial BMI: Current Weight: Current BMI: Type of Surgery: Total Volume in Band: Previous Volume: Volume Removed: Volume Added: Band Size:
[2025-01-29 15:39] VITALS: BP 168/72; PULSE 87; RESP 16; TEMP 97.7; BMI 50.9
== END ==
LOC: BARWHC3 14:33
PROVIDERS: ATTEND Surgery Plastic and Reconstructive Surgery
DX: E66.01 Morbid (severe) obesity due to excess calories (principal); Z88.5 Allergy status to narcotic agent; Z88.0 Allergy status to penicillin; Z87.891 Personal history of nicotine dependence; Z68.43 Body mass index [BMI] 50.0-59.9, adult
CPT/HCPCS: 99211